=== PATIENT | male | born 1945 | race Caucasian/White ===

== ENCOUNTER 2024-11-06 15:11 | Inpatient (IN) ==
--- NOTE | 2024-11-06 16:10 | Emergency Department Note ---
Impression & Plan Recurrent falls, Generalized weakness, Elevated brain natriuretic peptide (BNP) level, Ambulatory dysfunction ED Provider Note HISTORY OF PRESENT ILLNESS: Patient is an 79-year-old male presenting with recurrent falls and generalized weakness. Patient has been having recurrent episodes of falling over the last 4 to 6 weeks. He reportedly was admitted to [facility] 2 weeks ago and states he was discharged home. He states that he has fallen multiple times since being home. He states that he feels very weak when he is up walking with his walker and the next minute he finds himself on the ground. He denies any chest pain or shortness of breath prior to passing out. He is not on any anticoagulation, but is on a baby aspirin daily. He denies any recent fevers. Denies any abdominal pain, nausea or vomiting. His most recent fall was yesterday. His called his primary care provider today and the staff at the office referred the patient to the emergency department for further evaluation and for "home oxygen and possibly a walker." Patient reports he feels generally weak and unsteady when he is up and walking around. He states that he feels short of breath with any sort of exertion over the last 6 weeks. Denies any DVT or PE history. Denies any recent sick contact exposures. Patient reports that during his admission to [facility], he got 2 units of blood. ROS: as above PHYSICAL EXAM: Constitutional: Patient appears in no acute distress. HENT: Head: Normocephalic and atraumatic. Eyes: EOMI, PERRL Mouth/Throat: Mucous membranes moist. Neck: Trachea midline. Neck supple. Cardiovascular: RRR, No murmurs, rubs or gallops. Intact distal pulses. Pulmonary/Chest: No respiratory distress. Breath sounds clear and equal bilaterally. No wheezes or rales. Abdominal: Abdomen soft, no tenderness, rebound or guarding. Musculoskeletal: No tenderness or deformity noted. +2 pitting edema of bilateral lower extremities Skin: Warm and dry. No rash, erythema, pallor or cyanosis Psychiatric: Appropriate mood and affect for situation. Neurological: Alert and keenly responsive. CN II-XII grossly intact, moving all extremities equally and fully. MDM: - Vitals signs showed hypertension - History obtained via patient. History as above. - Chronic conditions affecting care: HTN; HLD; CAD; DM-2 - Differential diagnoses include, but are not limited to: UTI; pneumonia; viral syndrome; electrolyte abnormality; CVA; intracranial hemorrhage; ACS - Order placed for continuous cardiac monitoring. At this time, monitor showed rate of 80 bpm with normal sinus rhythm, per my interpretation. - External medical records reviewed. Diabetes visit dated 04/01/2024 was reviewed. Patient is on Ozempic and Tresiba. - EKG interpreted by myself showed normal sinus rhythm. Rate 78 bpm. QT 388. No acute ischemic changes - Laboratory workup interpreted by myself showed normal WBC; anemia (Hgb 7.3); elevated INR (1.2); hyponatremia (Na 134); normal lactate; elevated creatinine (Cr 2.38); normal troponin; elevated BNP (1150); normal TSH - CT head wo contrast negative for acute intracranial pathology - UA negative for infection - Viral respiratory panel negative. - CXR showed some haziness to the lung bases, per my interpretation. Radiology notes this could be technique versus pneumonia. - Patient given 40 mg IV lasix in ER. - Discussion was had with disease case manager about patient's case and need for admission - Hospitalist consulted for admission - [facility] for further evaluation and management. ASSESSMENT AND PLAN: Diagnosis: recurrent falls; generalized weakness; ambulatory dysfunction; elevated BNP Plan: admit Past Med/Surg History Problem List (Updated 11/06/24 @ 18:50 by Missy Blanco MD) Ambulatory dysfunction (Acute) Elevated brain natriuretic peptide (BNP) level (Acute) Generalized weakness (Acute) Recurrent falls (Acute) Stented coronary artery Mitral regurgitation CAD (coronary artery disease) Diabetic nephropathy Type 2 diabetes mellitus Urinary symptom or sign Hypercholesterolemia Hypertension Diabetes Arthritis BPH (benign prostatic hyperplasia) Dysuria Medical History (Updated 11/06/24 @ 18:50 by Missy Blanco MD) Urinary symptom or sign Heart trouble Surgical History (Updated 09/20/24 @ 15:06 by Ananda Gamez MD) History of prostate surgery H/O discectomy History of mastectomy Family History Mother Diabetes Heart disease Hypertension Father Heart disease Hypertension Social History Smoking Status: Former smoker Tobacco Type: Cigarettes marital status: current occupational status: retired Feels Safe at Home: Yes Allergies Allergies Allergy/AdvReac Type Severity Reaction Status Date / Time Penicillins Allergy Verified 09/20/24 14:28 [email or web address] Allergy Unknown Uncoded 09/20/24 14:28 Home Meds Home Medications Medication Instructions Recorded Confirmed amitriptyline 100 mg tablet 100 mg PO DAILY 01/18/24 09/20/24 aspirin 81 mg tablet,delayed 81 mg PO DAILY 01/18/24 09/20/24 release blood-glucose meter (OneTouch 01/18/24 03/27/24 Verio Flex Meter) carvedilol 25 mg tablet 25 mg PO BID 01/18/24 09/20/24 cholecalciferol (vitamin D3) 25 25 mcg PO DAILY 01/18/24 09/20/24 mcg (1,000 unit) capsule coenzyme Q10 200 mg capsule 200 mg PO DAILY 01/18/24 09/20/24 (Q-Sorb Co Q-10) donepezil 5 mg tablet (Aricept) 5 mg PO DAILY 01/18/24 09/20/24 fenofibrate 160 mg tablet 160 mg PO DAILY 01/18/24 09/20/24 finasteride 5 mg tablet 5 mg PO DAILY 01/18/24 09/20/24 krill 350 mg-omega-3 90 mg-dha 24 cap PO 01/18/24 09/20/24 mg-epa 50 gc-yaxvaxw-qgjqr capsule (MegaRed [place]-3 Krill Oil) leflunomide 20 mg tablet 20 mg PO DAILY 01/18/24 09/20/24 gebujivt-bnzezfsm-agrwt acid 400 tab PO 01/18/24 09/20/24 mcg-vit K 20 mcg-lycop 300 mcg tablet nitroglycerin 0.4 mg sublingual 0.4 mg sublingual Q5M PRN 01/18/24 09/20/24 tablet tamsulosin 0.4 mg capsule 0.4 mg PO DAILY 01/18/24 09/20/24 terazosin 10 mg capsule 10 mg PO DAILY 01/18/24 09/20/24 trazodone 100 mg tablet 100 mg PO DAILY 01/18/24 09/20/24 valsartan 320 mg tablet 320 mg PO DAILY 01/18/24 09/20/24 vitamin B comp and C no.3 15 mg-10 1 cap PO DAILY 01/18/24 09/20/24 mg-50 mg-5 mg-300 mg capsule (B Complex Plus Vitamin C) amlodipine 10 mg tablet 10 mg PO BID 09/20/24 09/20/24 ascorbic acid (vitamin C) 500 mg 500 mg PO DAILY 09/20/24 09/20/24 capsule atorvastatin 40 mg tablet 20 mg PO DAILY 09/20/24 09/20/24 gabapentin 400 mg capsule 400 mg PO DAILY 09/20/24 09/20/24 isosorbide mononitrate 60 mg 30 mg PO DAILY 09/20/24 09/20/24 tablet,extended release 24 hr magnesium 200 mg tablet 400 mg PO DAILY 09/20/24 09/20/24 methenamine hippurate 1 gram tablet 1 g PO BID 09/20/24 09/20/24 omeprazole 20 mg capsule,delayed 60 mg PO DAILY 09/20/24 09/20/24 release pramipexole 0.125 mg tablet 0.125 mg PO DAILY 09/20/24 09/20/24 primidone 50 mg tablet 150 mg PO DAILY 09/20/24 09/20/24 semaglutide 2 mg/dose (8 mg/3 mL) 0.25 mg subcut .weekly 09/20/24 subcutaneous pen injector Previous Rx's Medication Instructions Recorded pen needle, diabetic 33 gauge x #100 ea 01/18/2410/28" blood sugar diagnostic (OneTouch #400 ea 01/27/24 Verio test strips) FreeStyle [place] 3 Sensor #6 ea 04/10/24 (blood-glucose sensor) hydralazine 10 mg tablet 10 mg PO TID #90 tabs 09/20/24 Results & Data (ED) Vital Signs Vital Signs - 24 hr 11/06/24 15:22 11/06/24 15:27 11/06/24 15:40 Temperature Temperature Source Pulse Rate 79 Pulse Rate [Right Finger] 77 Pulse Rhythm [Right Finger] Regular Pulse Strength [Right Finger] Respiratory Rate 20 Respiratory Effort / Characteristics Non-Labored Respiratory Depth Normal Respiratory Pattern Blood Pressure [Right Arm] 155/69 H Blood Pressure Mean [Right Arm] 97 Blood Pressure Position [Right Arm] Lying Pulse Oximetry 93 Oxygen Delivery Method Room Air Sepsis New/Unexplained Change in Mental Status N/A Sepsis Action Taken by Nursing No Action Required 11/06/24 15:40 11/06/24 16:09 11/06/24 16:19 Temperature 37.2 C Temperature Source Oral Pulse Rate Pulse Rate [Right Finger] Pulse Rhythm [Right Finger] Pulse Strength [Right Finger] Respiratory Rate Respiratory Effort / Characteristics Respiratory Depth Respiratory Pattern Blood Pressure [Right Arm] Blood Pressure Mean [Right Arm] Blood Pressure Position [Right Arm] Pulse Oximetry 90 Oxygen Delivery Method Room Air Room Air Sepsis New/Unexplained Change in Mental Status Sepsis Action Taken by Nursing 11/06/24 18:00 Temperature Temperature Source Pulse Rate Pulse Rate [Right Finger] 67 Pulse Rhythm [Right Finger] Regular Pulse Strength [Right Finger] Normal Respiratory Rate 18 Respiratory Effort / Characteristics Non-Labored Respiratory Depth Normal Respiratory Pattern Regular Blood Pressure [Right Arm] 155/69 H Blood Pressure Mean [Right Arm] 97 Blood Pressure Position [Right Arm] Lying Pulse Oximetry 93 Oxygen Delivery Method Room Air Sepsis New/Unexplained Change in Mental Status Sepsis Action Taken by Nursing Laboratory Data 11/06/24 15:25 11/06/24 15:25 Lab Results 11/06/24 11/06/24 11/06/24 Range/Units 15:25 17:20 17:46 WBC 9.46 (4.8-10.8) K/ul RBC 2.56 L (4.70-6.10) M/uL Hgb 7.3 L (14.0-18.0) g/dl Hct 22.7 L (42.0-52.0) % MCV 88.7 (80.0-100.0) fL MCH 28.5 (25.0-34.0) pg MCHC 32.2 (32.0-36.0) g/dL RDW Std Deviation 45.9 (36.4-46.3) fL RDW Coeff of Jaziel 14.2 (11.5-14.5) % Plt Count 273 (130-400) K/uL MPV 9.1 L (9.4-12.4) fL Immature Gran % (Auto) 0.5 % Neut % (Auto) 79.8 % Lymph % (Auto) 9.3 % [place] % (Auto) 7.9 % Eos % (Auto) 2.1 % Baso % (Auto) 0.4 % Neut # (Auto) 7.54 H (1.40-6.50) K/uL Lymph # (Auto) 0.88 L (1.20-3.40) K/uL [place] # (Auto) 0.75 H (0.11-0.59) K/uL Eos # (Auto) 0.20 (0.00-0.50) K/uL Baso # (Auto) 0.04 (0.00-0.20) K/uL Immature Gran # (Auto) 0.05 (0.01-0.20) K/uL Hypochromasia Present Microcytosis Present PT 13.0 H (9.0-12.0) Seconds INR 1.2 H (0.9-1.1) Sodium 134 L (136-145) mmol/L Potassium 4.4 (3.5-5.1) mmol/L Chloride 103 (98-107) mmol/L Carbon Dioxide 23 (21-32) mmol/L Anion Gap 8 (3-11) BUN 34 H (6-23) mg/dl Creatinine 2.38 H (0.6-1.4) mg/dl Est Cr Clr Drug Dosing 29.2 ml/min eGFR 26.88 BUN/Creatinine Ratio 14.3 (10-20) Glucose 220 H (70-99(Fasting)) mg/dl Lactate 0.7 (0.4-2.0) mmol/L Calcium 8.7 (8.6-10.3) mg/dl Magnesium 2.0 (1.7-2.4) mg/dl Iron 14 L (35-175) mcg/dl TIBC 318 (250-450) mcg/dl Transferrin 227 (200-360) mg/dl Transferrin % Sat 4 L (20-50) % Total Bilirubin 0.5 (0.2-1.0) mg/dl AST 33 (13-39) U/L ALT 23 (7-52) U/L Alkaline Phosphatase 28 L (34-104) U/L Lactate Dehydrogenase 225 (86-244) U/L Troponin I High Sens 18.9 (0-20) pg/ml B-Natriuretic Peptide 1150 H (0-100) pg/ml Total Protein 6.8 (6.0-8.3) gm/dl Albumin 3.4 (3.4-5.0) gm/dl Globulin 3.4 (2.5-4.0) gm/dl Albumin/Globulin Ratio 1.0 (0.9-2) TSH 2.129 (0.300-4.500) uIu/ml Urine Color Yellow Urine Appearance Clear (Clear) Urine pH 6.0 (4.5-7.5) Ur Specific [place]ix[place] 1.015 (1.000-1.030) Urine Protein 3+ H (Negative) Urine Glucose (UA) Negative (Negative) Urine Ketones Trace H (Negative) Urine Blood Trace H (Negative) Urine Nitrite Negative (Negative) Urine Bilirubin Negative (Negative) Urine Urobilinogen Negative (Negative) Ur Leukocyte Esterase Negative (Negative) Urine WBC (Auto) 0-5 (0-5) /hpf Urine RBC (Auto) 11-20 H (0-2) /hpf U Hyaline Cast (Auto) 3-5 H (0-2) /lpf U Epithel Cells (Auto) 0-2 (0-2) /hpf Urine Bacteria (Auto) None Seen (None Seen) Adenovirus (PCR) (NotDetected) B. pertussis DNA (PCR) (NotDetected) B.parapertussis DNA PCR (NotDetected) C. pneumoniae DNA (PCR) (NotDetected) Coronavirus OC43 (PCR) (NotDetected) Coronavirus HKU1 (PCR) (NotDetected) Coronavirus 229E (PCR) (NotDetected) SARS-CoV-2 (PCR) (NotDetected) Coronavirus NL63 (PCR) (NotDetected) Human Metapneumovir PCR (NotDetected) Influenza Type A (PCR) (NotDetected) Influenza Type B (PCR) (NotDetected) M. pneumoniae (PCR) (NotDetected) Parainfluenza 1 (PCR) (NotDetected) Parainfluenza 2 (PCR) (NotDetected) Parainfluenza 3 (PCR) (NotDetected) Parainfluenza 4 (PCR) (NotDetected) RSV (PCR) (NotDetected) Entero/Rhino (PCR) (NotDetected) 11/06/24 Range/Units Unknown WBC (4.8-10.8) K/ul RBC (4.70-6.10) M/uL Hgb (14.0-18.0) g/dl Hct (42.0-52.0) % MCV (80.0-100.0) fL MCH (25.0-34.0) pg MCHC (32.0-36.0) g/dL RDW Std Deviation (36.4-46.3) fL RDW Coeff of Jaziel (11.5-14.5) % Plt Count (130-400) K/uL MPV (9.4-12.4) fL Immature Gran % (Auto) % Neut % (Auto) % Lymph % (Auto) % [place] % (Auto) % Eos % (Auto) % Baso % (Auto) % Neut # (Auto) (1.40-6.50) K/uL Lymph # (Auto) (1.20-3.40) K/uL [place] # (Auto) (0.11-0.59) K/uL Eos # (Auto) (0.00-0.50) K/uL Baso # (Auto) (0.00-0.20) K/uL Immature Gran # (Auto) (0.01-0.20) K/uL Hypochromasia Microcytosis PT (9.0-12.0) Seconds INR (0.9-1.1) Sodium (136-145) mmol/L Potassium (3.5-5.1) mmol/L Chloride (98-107) mmol/L Carbon Dioxide (21-32) mmol/L Anion Gap (3-11) BUN (6-23) mg/dl Creatinine (0.6-1.4) mg/dl Est Cr Clr Drug Dosing ml/min eGFR BUN/Creatinine Ratio (10-20) Glucose (70-99(Fasting)) mg/dl Lactate (0.4-2.0) mmol/L Calcium (8.6-10.3) mg/dl Magnesium (1.7-2.4) mg/dl Iron (35-175) mcg/dl TIBC (250-450) mcg/dl Transferrin (200-360) mg/dl Transferrin % Sat (20-50) % Total Bilirubin (0.2-1.0) mg/dl AST (13-39) U/L ALT (7-52) U/L Alkaline Phosphatase (34-104) U/L Lactate Dehydrogenase (86-244) U/L Troponin I High Sens (0-20) pg/ml B-Natriuretic Peptide (0-100) pg/ml Total Protein (6.0-8.3) gm/dl Albumin (3.4-5.0) gm/dl Globulin (2.5-4.0) gm/dl Albumin/Globulin Ratio (0.9-2) TSH (0.300-4.500) uIu/ml Urine Color Urine Appearance (Clear) Urine pH (4.5-7.5) Ur Specific [place]ix[place] (1.000-1.030) Urine Protein (Negative) Urine Glucose (UA) (Negative) Urine Ketones (Negative) Urine Blood (Negative) Urine Nitrite (Negative) Urine Bilirubin (Negative) Urine Urobilinogen (Negative) Ur Leukocyte Esterase (Negative) Urine WBC (Auto) (0-5) /hpf Urine RBC (Auto) (0-2) /hpf U Hyaline Cast (Auto) (0-2) /lpf U Epithel Cells (Auto) (0-2) /hpf Urine Bacteria (Auto) (None Seen) Adenovirus (PCR) Not Detected (NotDetected) B. pertussis DNA (PCR) Not Detected (NotDetected) B.parapertussis DNA PCR Not Detected (NotDetected) C. pneumoniae DNA (PCR) Not Detected (NotDetected) Coronavirus OC43 (PCR) Not Detected (NotDetected) Coronavirus HKU1 (PCR) Not Detected (NotDetected) Coronavirus 229E (PCR) Not Detected (NotDetected) SARS-CoV-2 (PCR) Not Detected (NotDetected) Coronavirus NL63 (PCR) Not Detected (NotDetected) Human Metapneumovir PCR Not Detected (NotDetected) Influenza Type A (PCR) Not Detected (NotDetected) Influenza Type B (PCR) Not Detected (NotDetected) M. pneumoniae (PCR) Not Detected (NotDetected) Parainfluenza 1 (PCR) Not Detected (NotDetected) Parainfluenza 2 (PCR) Not Detected (NotDetected) Parainfluenza 3 (PCR) Not Detected (NotDetected) Parainfluenza 4 (PCR) Not Detected (NotDetected) RSV (PCR) Not Detected (NotDetected) Entero/Rhino (PCR) Not Detected (NotDetected) Administered Medications Discontinued Medications Furosemide (Furosemide 40 Mg/4 Ml Vial) 40 mg IV ONE ONE Stop: 11/06/24 17:15 Last Admin: 11/06/24 17:21 Dose: 40 mg Documented By: ERMA Imaging Data Radiologist's Impression: Chest X-Ray 11/06/24 16:07 EXAM: X-ray chest one-view portable CLINICAL HISTORY: Weakness PRIORS: None TECHNIQUE: AP portable upright FINDINGS: The chest is well-expanded. Cardiac silhouette is moderately enlarged. Hazy opacification present at the lung bases. Right costophrenic angle is omitted. Moderate atherosclerotic disease of the aortic knob is noted. No pneumothorax. Trachea is patent. Osseous structures demonstrate no acute abnormality. No radiopaque foreign body. IMPRESSION: 1. Hazy opacification at the lung bases which may suggest pneumonia versus technique. 2. Moderate enlargement of the cardiac silhouette. Electronically signed by Ada Garcia 11-06-2024 5:[address] 11/06/24 16:08 EXAMINATION: Head CT without CLINICAL HISTORY: Fall PRIORS: None TECHNIQUE: Contiguous axial images were obtained through the head without the use of intravenous contrast. Sagittal and coronal reformations are supplied. FINDINGS: Moderate parenchymal volume loss is noted. Humphreys-white differentiation is preserved. No edema or midline shift. A mild scalp/soft tissue hematoma and swelling noted involving the right high parietal/occipital region. No intra-axial or extra-axial hemorrhage. Ventricles are normal in size and configuration. Brainstem and cerebellum have a normal appearance. Calvarium unremarkable. Paranasal sinuses and mastoid air cells are well-pneumatized. Globes are intact. No retrobulbar abnormality. IMPRESSION: No CT evidence of an acute intracranial abnormality. Electronically signed by Ada Garcia 11-06-2024 5:33 PM Discharge Plan Visit Data Chief Complaint: Weakness Stated Complaint: WEAKNESS, FALLS ED Provider: Missy Blanco Discharge Problem: Recurrent falls, Generalized weakness, Elevated brain natriuretic peptide (BNP) level, Ambulatory dysfunction Forms Stand Alone Forms: WriteReader ApS Prescriptions Prescriptions: No Action (DME) OneTouch Verio test strips Strip See Rx Instructions .Route Qty: 400 3RF Rx Instructions: Test 4 times a day (DME) Faves [place] 3 Sensor Device See Rx Instructions .Route Qty: 6 3RF Rx Instructions: Change sensor every 14 days trazodone 100 mg tablet 100 mg PO DAILY (DME) blood-glucose meter [[employer] Verio Flex meter] [facility] [place] See Rx Instructions .Route Rx Instructions: As directed nitroglycerin 0.4 mg tablet, sublingual 0.4 mg sublingual Q5M PRN Rx Instructions: do not exceed 3 doses per episode tamsulosin 0.4 mg capsule 0.4 mg PO DAILY carvedilol 25 mg tablet 25 mg PO BID Rx Instructions: must administer with a meal/food fenofibrate 160 mg tablet 160 mg PO DAILY terazosin 10 mg capsule 10 mg PO DAILY cholecalciferol (vitamin D3) 25 mcg (1,000 unit) capsule 25 mcg PO DAILY MegaRed [place]-3 Krill Oil 651-38-31-50 mg capsule PO coenzyme Q10 [Q-Sorb Co Q-10] 200 mg capsule 200 mg PO DAILY B Complex Plus Vitamin C 41-45-73-5-300 mg capsule 1 cap PO DAILY Rx Instructions: give with food (meal/snack) hrsaxvpo-cjl-yjrdg-vit K-lycop 400-20-300 mcg tablet PO aspirin 81 mg tablet,delayed release (DR/EC) 81 mg PO DAILY leflunomide 20 mg tablet 20 mg PO DAILY amitriptyline 100 mg tablet 100 mg PO DAILY finasteride 5 mg tablet 5 mg PO DAILY valsartan 320 mg tablet 320 mg PO DAILY donepezil [Aricept] 5 mg tablet 5 mg PO DAILY (DME) pen needle, diabetic 33 gauge x 1/4" needle See Rx Instructions .Route Qty: 100 5RF Rx Instructions: To be used with insulin pen. magnesium 200 mg tablet 400 mg PO DAILY atorvastatin 40 mg tablet 20 mg PO DAILY isosorbide mononitrate 60 mg tablet extended release 24 hr 30 mg PO DAILY omeprazole 20 mg capsule,delayed release(DR/EC) 60 mg PO DAILY primidone 50 mg tablet 150 mg PO DAILY ascorbic acid (vitamin C) 500 mg capsule 500 mg PO DAILY methenamine hippurate 1 gram tablet 1 g PO BID amlodipine 10 mg tablet 10 mg PO BID pramipexole 0.125 mg tablet 0.125 mg PO DAILY semaglutide 2 mg/dose (8 mg/3 mL) pen injector 0.25 mg subcut .weekly gabapentin 400 mg capsule 400 mg PO DAILY hydralazine 10 mg tablet 10 mg PO TID Qty: 90 5RF Referrals Referrals: Jhonatan Castillo, MAKAYLAC [Primary Care Provider] -
[2024-11-06 16:44] LABS: Basophils # (auto) 0.04 K/uL (0.00-0.20); Basophils % (auto) 0.4 %; Eosinophils % (auto) 2.1 %; Hematocrit (blood only) 22.7 % (42.0-52.0); Hemoglobin 7.3 g/dl (14.0-18.0); Immature Granulocytes # (auto) 0.05 K/uL (0.01-0.20); Immature Granulocytes % (auto) 0.5 %; Lymphocytes # (auto) 0.88 K/uL (1.20-3.40); Lymphocytes % (auto) 9.3 %; Mean Corpuscular Hemoglobin 28.5 pg (25.0-34.0); Mean Corpuscular Hgb Conc 32.2 g/dL (32.0-36.0); Mean Corpuscular Volume 88.7 fL (80.0-100.0); Mean Platelet Volume 9.1 fL (9.4-12.4); Monocytes # (auto) 0.75 K/uL (0.11-0.59); Monocytes % (auto) 7.9 %; Neutrophils # (auto) 7.54 K/uL (1.40-6.50); Neutrophils % (auto) 79.8 %; Platelet Count 273 K/uL (130-400); RDW Coefficient of Variation 14.2 % (11.5-14.5); RDW Standard Deviation 45.9 fL (36.4-46.3); Red Blood Count 2.56 M/uL (4.70-6.10); White Blood Count 9.46 K/ul (4.8-10.8)
[2024-11-06 16:47] LABS: Albumin Level 3.4 gm/dl (3.4-5.0); BUN Creatinine Ratio 14.3 (10-20); Bilirubin,Total 0.5 mg/dl (0.2-1.0); Calcium 8.7 mg/dl (8.6-10.3); Creatinine Clr Calc Pharmacy 29.2 ml/min; Globulin 3.4 gm/dl (2.5-4.0); Potassium 4.4 mmol/L (3.5-5.1); Total Protein 6.8 gm/dl (6.0-8.3)
[2024-11-06 16:49] LABS: INR 1.2 (0.9-1.1)
[2024-11-06 16:51] LABS: Troponin I High Sensitivity 18.9 pg/ml (0-20)
[2024-11-06 17:00] LABS: Thyroid Stimulating Hormone 2.129 uIu/ml (0.300-4.500)
[2024-11-06 17:13] LABS: Hypochromasia Present; Microcytosis Present
--- NOTE | 2024-11-06 17:17 | XRay Report ---
EXAM: X-ray chest one-view portable CLINICAL HISTORY: Weakness PRIORS: None TECHNIQUE: AP portable upright FINDINGS: The chest is well-expanded. Cardiac silhouette is moderately enlarged. Hazy opacification present at the lung bases. Right costophrenic angle is omitted. Moderate atherosclerotic disease of the aortic knob is noted. No pneumothorax. Trachea is patent. Osseous structures demonstrate no acute abnormality. No radiopaque foreign body. IMPRESSION: 1. Hazy opacification at the lung bases which may suggest pneumonia versus technique. 2. Moderate enlargement of the cardiac silhouette. Electronically signed by Ada Garcia 11-06-2024 5:17 PM
[2024-11-06] MEDS: FUROSEMIDE 40 MG/4 ML VIAL IV ONE (17:21)
[2024-11-06 17:30] LABS: Adenovirus PCR Not Detected (NotDetected); Bordetella parapertussis PCR Not Detected (NotDetected); Bordetella pertussis PCR Not Detected (NotDetected); Chlamydia pneumoniae PCR Not Detected (NotDetected); Coronavirus 229E PCR Not Detected (NotDetected); Coronavirus CoV-2 (COVID19)PCR Not Detected (NotDetected); Coronavirus HKU1 PCR Not Detected (NotDetected); Coronavirus NL63 PCR Not Detected (NotDetected); Coronavirus OC43PCR Not Detected (NotDetected); Human Metapneumovirus PCR Not Detected (NotDetected); Influenza A PCR Not Detected (NotDetected); Influenza B PCR Not Detected (NotDetected); Mycoplasma pneumoniae PCR Not Detected (NotDetected); Parainfluenza Virus 1 PCR Not Detected (NotDetected); Parainfluenza Virus 2 PCR Not Detected (NotDetected); Parainfluenza Virus 3 PCR Not Detected (NotDetected); Parainfluenza Virus 4 PCR Not Detected (NotDetected); Respiratory Syncytial VirusPCR Not Detected (NotDetected); Rhinovirus/Enterovirus PCR Not Detected (NotDetected)
--- NOTE | 2024-11-06 17:33 | CT Scan Report ---
EXAMINATION: Head CT without CLINICAL HISTORY: Fall PRIORS: None TECHNIQUE: Contiguous axial images were obtained through the head without the use of intravenous contrast. Sagittal and coronal reformations are supplied. FINDINGS: Moderate parenchymal volume loss is noted. Humphreys-white differentiation is preserved. No edema or midline shift. A mild scalp/soft tissue hematoma and swelling noted involving the right high parietal/occipital region. No intra-axial or extra-axial hemorrhage. Ventricles are normal in size and configuration. Brainstem and cerebellum have a normal appearance. Calvarium unremarkable. Paranasal sinuses and mastoid air cells are well-pneumatized. Globes are intact. No retrobulbar abnormality. IMPRESSION: No CT evidence of an acute intracranial abnormality. Electronically signed by Ada Garcia 11-06-2024 5:33 PM
--- NOTE | 2024-11-06 18:19 | History & Physical Report ---
Date of Service November 06, 2024 Assessment & Plan (1) Recurrent falls: Plan: Balance vs. weakness issue. He has had extensive workup outside of our hospital system including EMG testing Clearly polypharmacy may be playing a role but without specialist notes I am reluctant to start discontinuing medications without notes from his specialists PT/OT - likely need for placement (2) Shortness of breath: Plan: ?secondary to anemia ?hypervolemic Monitor response to Lasix CT for PE pending (d dimer elevated) (3) Right buttock pain: Plan: Secondary to fall from yesterday CT Pelvis w/o IV contrast taken but not yet reported to assess for pelvis fracture, no groin pain to suggest hip fracture (4) Elevated serum creatinine: Plan: Unknown baseline but suspect this is chronic as the diagnosis of CKD has been mentioned to him in the past, request outside notes UA pending (5) Normocytic anemia: Plan: Unknown baseline but recently needing blood tranfusions, patient unaware of why he is anemic Iron studies, B12, folate, LDH, retic count No melena (6) Hypertension: Plan: Continue his usual regimen with carvedilol, amlodipine, ISMN (7) Claudication: Plan: Noted claudication in calves without relief from recent peripheral artery procedure, suspect neurogenic although he reports normal recent NCS/EMG testing in the last 6 months Request outside records (8) Peripheral artery disease: Plan: Continue aspirin, atorvastatin (9) BPH (benign prostatic hyperplasia): Plan: Straight cath TID Unclear why he takes both tamlsulosin and terazosin, will continue terazosin alone Continue finasteride (10) Diabetes: Plan: HbA1C in AM On Ozempic outpatient NovoLog for correction factor only, will add basal coverage if needing this frequently (11) Generalized weakness: Plan VTE Prophylaxis - deferred pending stability in Hgb Diet - Low Na Disposition - admit to med/surg Admission and Anticipated Discharge Date Admission Date: November 06, 2024 History of Present Illness Chief Complaint: Recurrent falls Primary Care Provider: Jhonatan Castillo Natalio Yepez is an 79 year old male presents to the ER with shortness of breath on exertion, increasing weakness and recurrent falls. History is very limited as most of his care takes place outside of [facility] in both [facility] and [facility] systems. He reports multiple falls in the last 2 months, he did not have a significant issue with falls before then. He was recently in [facility] discharged 6 days ago. He was intially admitted but only managed to get out to his car on discharge and fell over backwards trying to get into the car therefore was re-admitted. He reports being anemic and receiving 2 units of blood but is unsure why he is anemic. No EGD or colonoscopy was performed - he notes his last EGD/colonoscopy was 4 years ago. He is unsure what his hemoglobin usually runs around but has been anemic for as long as he can remember. He feels the reason for his recurrent falls is bilateral leg weakness. He notes his weakness is much worse since his last hospitalization as he was lying around in bed for several days. His last fall was yesterday and is having right gluteal pain since the fall. No radiation down his leg. He feels both legs are weak but perhaps the right worse than left. He notes a history of claudication for the last 2 years which was investigated with EMG/NCS (unknown results) from his neurology Dr Alicea. He underwent peripheral artery angiogram and what he describes as baloon angioplasty on his right leg without change in his symptoms by Dr Kwon within the last 6 months. He also notes 2 days of shortness of breath. No chest pain, palpitations, worsening leg swelling or weight gain. His Cr was also noted to be elevated. Unknown baseline. He reports being under n ephrology (Dr Patel in [place]). Unknown diagnosis requiring leflunamide however he reports this helped with his joint pain and prescribed by rheumatology (Dr Carrasquillo) His PCP is Paulette MONGE of [facility]. Biggest change since his discharge from [place] 6 days ago is his shortness of breath rather than the weakness. Allergies Allergy/AdvReac Type Severity Reaction Status Date / Time cashew nut Allergy Unknown Unknown Verified 11/06/24 23:11 Penicillins Allergy Unknown Unknown Verified 11/06/24 23:11 Home Medications Medication Instructions Recorded Confirmed Type amitriptyline 100 mg tablet 100 mg PO HS 01/18/24 11/06/24 History aspirin 81 mg tablet,delayed 81 mg PO DAILY 01/18/24 11/06/24 History release blood-glucose meter (OneTouch 01/18/24 03/27/24 History Verio Flex Meter) carvedilol 25 mg tablet 25 mg PO BID 01/18/24 11/06/24 History cholecalciferol (vitamin D3) 25 25 mcg PO DAILY 01/18/24 11/06/24 History mcg (1,000 unit) capsule coenzyme Q10 200 mg capsule 200 mg PO DAILY 01/18/24 11/06/24 History (Q-Sorb Co Q-10) donepezil 5 mg tablet (Aricept) 5 mg PO HS 01/18/24 11/06/24 History fenofibrate 160 mg tablet 160 mg PO DAILY 01/18/24 11/06/24 History finasteride 5 mg tablet 5 mg PO DAILY 01/18/24 11/06/24 History krill 350 mg-omega-3 90 mg-dha 24 1 cap PO BID 01/18/24 11/06/24 History mg-epa 50 bk-tvvabmy-iwfks capsule (MegaRed Aldrich-3 Krill Oil) leflunomide 20 mg tablet 20 mg PO HS 01/18/24 11/06/24 History uugigkji-fwecelkt-loovj acid 400 1 tab PO DAILY 01/18/24 11/06/24 History mcg-vit K 20 mcg-lycop 300 mcg tablet nitroglycerin 0.4 mg sublingual 0.4 mg sublingual Q5M PRN Chest 01/18/24 11/06/24 History tablet Pain pen needle, diabetic 33 gauge x #100 ea 01/18/24 03/27/24 Rx 1/" tamsulosin 0.4 mg capsule 0.4 mg PO HS 01/18/24 11/06/24 History terazosin 10 mg capsule 10 mg PO HS 01/18/24 11/06/24 History trazodone 100 mg tablet 100 mg PO HS 01/18/24 11/06/24 History valsartan 320 mg tablet 320 mg PO DAILY 01/18/24 11/06/24 History vitamin B comp and C no.3 15 mg-10 1 cap PO DAILY 01/18/24 11/06/24 History mg-50 mg-5 mg-300 mg capsule (B Complex Plus Vitamin C) blood sugar diagnostic (OneTouch #400 ea 01/27/24 03/27/24 Rx Verio test strips) FreeStyle [place] 3 Sensor #6 ea 04/10/24 Rx (blood-glucose sensor) amlodipine 10 mg tablet 10 mg PO BID 09/20/24 11/06/24 History ascorbic acid (vitamin C) 500 mg 500 mg PO DAILY 09/20/24 11/06/24 History capsule atorvastatin 40 mg tablet 20 mg PO DAILY 09/20/24 11/06/24 History gabapentin 400 mg capsule 400 mg PO BID 09/20/24 11/06/24 History hydralazine 10 mg tablet 10 mg PO TID #90 tabs 09/20/24 11/06/24 Rx isosorbide mononitrate 60 mg 30 mg PO HS 09/20/24 11/06/24 History tablet,extended release 24 hr magnesium 200 mg tablet 400 mg PO DAILY 09/20/24 11/06/24 History methenamine hippurate 1 gram tablet 1 g PO BID 09/20/24 11/06/24 History omeprazole 20 mg capsule,delayed 60 mg PO HS 09/20/24 11/06/24 History release pramipexole 0.125 mg tablet 0.125 mg PO HS 09/20/24 11/06/24 History primidone 50 mg tablet 150 mg PO HS 09/20/24 11/06/24 History semaglutide 2 mg/dose (8 mg/3 mL) 0.25 mg subcut .weekly 09/20/24 11/06/24 History subcutaneous pen injector Past Med/Surg History Problem List (Updated 11/07/24 @ 06:30 by Aldair Chauhan MD) Right buttock pain Elevated serum creatinine Shortness of breath Normocytic anemia Claudication Ambulatory dysfunction (Acute) Elevated brain natriuretic peptide (BNP) level (Acute) Generalized weakness (Acute) Recurrent falls (Acute) Stented coronary artery Mitral regurgitation CAD (coronary artery disease) Diabetic nephropathy Type 2 diabetes mellitus Urinary symptom or sign Hypercholesterolemia Hypertension Diabetes Arthritis BPH (benign prostatic hyperplasia) Dysuria Medical History (Updated 11/07/24 @ 06:30 by Aldair Chauhan MD) Peripheral artery disease Urinary symptom or sign Heart trouble Surgical History (Updated 09/20/24 @ 15:06 by Ananda Gamez MD) History of prostate surgery H/O discectomy History of mastectomy Family History Mother Diabetes Heart disease Hypertension Father Heart disease Hypertension Social History Smoking Status: Former smoker Tobacco Type: Cigarettes Hx Alcohol Use: Yes Alcohol type: beer and wine Hx Substance Use: No Preferred Language: Swedish Communication Ability: Effective Director Required: No Beliefs That Will Affect Care: None marital status: Current Living Situation: Spouse current occupational status: retired Other Information That Helps Us Care for You: No Feels Safe at Home: Yes Safety Concerns: Feels Safe At This Time Assistive Devices: Hearing Aid - Bilateral and Walker Assistive Devices Comment: Hearing aids, walker Review of Systems Review of Systems: All systems reviewed & are unremarkable except as noted in HPI & below Physical Exam Constitutional: well developed; + not well nourished and no acute distress Eyes: PERRL, conjunctivae normal, anicteric sclerae ENMT: external ear and nose normal, oropharynx normal Respiratory: normal respiratory effort; no respiratory distress Auscultation: + crackles (bibasal); no wheezes Cardiovascular: Rate/Rhythm: regular rate and regular rhythm Heart Sounds: no murmur Extremities: normal capillary refill and + pedal edema (1+ equal bilaterally); no calf tenderness Gastrointestinal (Abdomen): normal bowel sounds, soft, nontender, no hepatosplenomegaly Musculoskeletal: no cyanosis or clubbing, extremities motor strength 5/5 Skin: no rashes, warm and dry Neurologic: moves all extremities and awake; no focal motor deficits and not confused Motor/Sensory: no tremor and no pronator drift Cranial Nerves: PERRL, EOM intact bilaterally, normal facial strength, tongue midline, able to rotate head bilaterally, able to elevate shoulders bilaterally, no nystagmus and symmetric palate elevation Psychiatric: A+Ox3, euthymic affect Genitourinary: no CVA tenderness Results & Data Results & Data Vital Signs (Past 12 Hours) Vital Signs Temp Pulse Pulse Resp BP Pulse Ox O2 Del Method 11/06/24 18:00 67 18 155/69 H 93 Room Air 11/06/24 16:19 37.2 C 11/06/24 16:09 90 Room Air 11/06/24 15:40 Room Air 11/06/24 15:27 79 11/06/24 15:22 77 20 155/69 H 93 Room Air Laboratory Results Abnormal lab results 11/06/24 Range/Units 15:25 RBC 2.56 L (4.70-6.10) M/uL Hgb 7.3 L (14.0-18.0) g/dl Hct 22.7 L (42.0-52.0) % MPV 9.1 L (9.4-12.4) fL Neut # (Auto) 7.54 H (1.40-6.50) K/uL Lymph # (Auto) 0.88 L (1.20-3.40) K/uL Cloud # (Auto) 0.75 H (0.11-0.59) K/uL PT 13.0 H (9.0-12.0) Seconds INR 1.2 H (0.9-1.1) Sodium 134 L (136-145) mmol/L BUN 34 H (6-23) mg/dl Creatinine 2.38 H (0.6-1.4) mg/dl Glucose 220 H (70-99(Fasting)) mg/dl Alkaline Phosphatase 28 L (34-104) U/L B-Natriuretic Peptide 1150 H (0-100) pg/ml Diagnostic Findings Head CT without CLINICAL HISTORY: Fall PRIORS: None TECHNIQUE: Contiguous axial images were obtained through the head without the use of intravenous contrast. Sagittal and coronal reformations are supplied. FINDINGS: Moderate parenchymal volume loss is noted. Humphreys-white differentiation is preserved. No edema or midline shift. A mild scalp/soft tissue hematoma and swelling noted involving the right high parietal/occipital region. No intra-axial or extra-axial hemorrhage. Ventricles are normal in size and configuration. Brainstem and cerebellum have a normal appearance. Calvarium unremarkable. Paranasal sinuses and mastoid air cells are well- pneumatized. Globes are intact. No retrobulbar abnormality. IMPRESSION: No CT evidence of an acute intracranial abnormality. X-ray chest one-view portable CLINICAL HISTORY: Weakness PRIORS: None TECHNIQUE: AP portable upright FINDINGS: The chest is well-expanded. Cardiac silhouette is moderately enlarged. Hazy opacification present at the lung bases. Right costophrenic angle is omitted. Moderate atherosclerotic disease of the aortic knob is noted. No pneumothorax. Trachea is patent. Osseous structures demonstrate no acute abnormality. No radiopaque foreign body. IMPRESSION: 1. Hazy opacification at the lung bases which may suggest pneumonia versus technique. 2. Moderate enlargement of the cardiac silhouette. Medications Administered ER medications given: Furosemide 40 mg IV ECG Rate (beats per minute): 78 Rhythm: normal sinus Findings: + LAFB Comparison ECG Date: from (September 20, 2024) Change: no significant change Code Status & VTE Plan Code Status Full VTE Prophylaxis Plan VTE Prophylaxis will be ordered: No PG Care Time/CCT Total # of Minutes Spent Total Time Spent with Patient: Total time spent is greater than 50% in coordination of care (as documented) at patient's floor/unit and/or counseling patient: Coding Level of Care Code 38989 INT INP/OBS CARE 3/75MIN Diagnoses Recurrent falls R29.6 Shortness of breath R06.02 Right buttock pain M79.18 Elevated serum creatinine R79.89 Normocytic anemia D64.9 Primary hypertension I10 Hypertension type: primary hypertension Claudication I73.9 Peripheral artery disease I73.9 BPH (benign prostatic hyperplasia) N40.0 Diabetes E11.9 Generalized weakness R53.1 (6) Hypertension Hypertension type: primary hypertension Qualified Code(s): I10 - Essential (primary) hypertension
[2024-11-06 18:23] LABS: Appearance Urine Clear (Clear); Bacteria Urine Automated None Seen (None Seen); Bilirubin Urine Negative (Negative); Blood Urine Trace (Negative); Color Urine Yellow; Epithelial Cell Urine Auto 0-2 /hpf (0-2); Glucose Urine UA Negative (Negative); Ketones Urine Trace (Negative); Leukocyte Esterase Urine Negative (Negative); Nitrite Urine Negative (Negative); Protein Urine 3+ (Negative); Specific Gravity Urine 1.015 (1.000-1.030); Urobilinogen Urine Negative (Negative); WBC Urine Automated 0-5 /hpf (0-5)
[2024-11-06 18:54] LABS: Reticulocyte % 1.14 % (0.50-2.00); Reticulocytes # 0.03 10^6/uL (0.020-0.100)
[2024-11-06 19:06] LABS: Folate (Folic Acid),Ser orPlas > 22.30 ng/ml (>5.38)
[2024-11-06 19:07] LABS: Vitamin B12 639 pg/ml (180-914)
[2024-11-06] MEDS ORDERED: ACETAMINOPHEN 325 MG TAB PO PRN (23:08)
[2024-11-06] MEDS: TERAZOSIN HCL 5 MG CAP PO SCH (23:56)
[2024-11-06] MEDS: hydrALAZINE 10 MG TAB PO SCH (23:56)
[2024-11-06] MEDS: PANTOprazole 40 MG TAB PO SCH (23:56)
[2024-11-06] MEDS: METHENAMINE HIPPURATE 1 GM TAB PO SCH (23:56)
[2024-11-06] MEDS: PRAMIPEXOLE DIHYDROCHLO 0.25 MG TAB PO SCH (23:56)
[2024-11-06] MEDS: AMITRIPTYLINE HCL 100 MG TAB PO SCH (23:56)
[2024-11-06] MEDS: GABAPENTIN 400 MG CAP PO SCH (23:56)
[2024-11-06] MEDS: ISOSORBIDE MONO EXTENDED REL 30 MG TABCR PO SCH (23:57)
[2024-11-06] MEDS: LEFLUNOMIDE 10 MG TAB PO SCH (23:57)
[2024-11-06] MEDS: PRIMIDONE 50 MG TAB PO SCH (23:57)
[2024-11-06] MEDS: traZODone HCL 100 MG TAB PO SCH (23:58)
[2024-11-06] MEDS: amLODIPine BESYLATE 5 MG TAB PO SCH (23:58)
[2024-11-06] MEDS: DONEPEZIL HCL 5 MG TAB PO SCH (23:58)
[2024-11-06] MEDS: carvediloL 25 MG TAB PO SCH (23:59)
[2024-11-07 00:16] LABS: D Dimer 10650 ug/L FEU (0-500)
[2024-11-07] MEDS: OPTIRAY 320 125ml IV ONE (00:43)
--- NOTE | 2024-11-07 02:07 | CT Scan Report ---
Exam(s): CT PELVIS Without Contrast EXAM: CT Pelvis Without Intravenous Contrast CLINICAL HISTORY: right lower back pain r/o pelvic fracture. TECHNIQUE: Axial computed tomography images of the pelvis without intravenous contrast. CTDI is 30.57 mGy and DLP is 883.39 mGy-cm. Automated exposure control was utilized for the study. A dose lowering technique was utilized adhering to the principles of ALARA. COMPARISON: No relevant prior studies available. FINDINGS: Bowel: Abundant stool throughout the visualized colon. No definite bowel obstruction or ileus. Appendix: No findings to suggest acute appendicitis. Intraperitoneal space: Unremarkable. No free air. No significant fluid collection. Bladder: Distended urinary bladder. No stones. Reproductive: Unremarkable as visualized. Bones/joints: No acute fracture. No dislocation. Degenerative changes lower lumbar spine. Soft tissues: Unremarkable. Vasculature: Atherosclerotic vascular calcifications. No lower abdominal aortic aneurysm. Lymph nodes: Unremarkable. No enlarged lymph nodes. IMPRESSION: No acute fracture or dislocation. Degenerative changes lumbar spine. Distended urinary bladder. Abundant stool throughout the colon. Electronically signed by: Carlton Lopez M.D. 11/07/24 02:06 AM
--- NOTE | 2024-11-07 02:27 | CT Scan Report ---
EXAM: CT angio chest PE protocol CLINICAL HISTORY: 118 ML OPTIRAY 320, EVAL FOR PE, NO CHEST PAIN OR SOB TECHNIQUE: Contiguous axial images were obtained from the neck base through the upper abdomen following intravenous administration of iodinated contrast material. Angiographic images were processed, 3D MIP images were acquired for interpretation. If IV contrast material had not been administered, the likelihood of detecting abnormalities relevant to the patient's condition would have been substantially decreased. Coronal and sagittal 3-D MIPs were likewise performed and indicated to increase the sensitivity of detecting diffuse clinically relevant pathology. CT scan was performed according to ALARA (as low as reasonably achievable). COMPARISON: None. FINDINGS: Mild to moderate bilateral pleural effusion is noted. Compression subsegmental atelectasis of underlying lung parenchyma is seen. Mild cardiomegaly is detected. Mild to moderate pericardial effusion is noted. Maximum thickness of the pericardial fluid rim measures approximately 1.4 cm along the richard basal aspect. Thickening of the bronchovascular bundle is noted involving bilateral lower lobes. Patchy areas of ground-glass densities with interstitial thickening are noted involving bilateral lung parenchyma. Few small solid nodules are noted in the right upper lobe. Near complete collapse of the lingula is seen. Ipsilateral mediastinal shift is noted. The central airways are patent. Atherosclerotic calcifications are noted involving aortic root, aorta and its branches, coronary arteries. No axillary or mediastinal adenopathy is identified. The thyroid is unremarkable. Imaged portions of the upper abdomen are unremarkable. No aggressive appearing osseous lesions are identified. IMPRESSION: 1. No evidence of pulmonary embolism. 2. Mild to moderate bilateral pleural effusion is noted. Compression subsegmental atelectasis of underlying lung parenchyma is seen. 3. Mild cardiomegaly is detected. 4. Mild to moderate pericardial effusion is noted. Maximum thickness of the pericardial fluid rim measures approximately 1.4 cm along the richard basal aspect. 5. Thickening of the bronchovascular bundle is noted involving bilateral lower lobes. 6. Patchy areas of ground-glass densities with interstitial thickening are noted involving bilateral lung parenchyma. Possibility of pulmonary edema needs consideration, likely cardiogenic. 7. Few small solid nodules are noted in the right upper lobe. 8. Atherosclerotic calcifications are noted involving aortic root, aorta and its branches, coronary arteries. Electronically signed by Memo Mir 11-07-2024 02:26 AM
[2024-11-07] MEDS: FUROSEMIDE INJ 20 MG/2 ML VIAL IV ONE (06:11)
[2024-11-07] MEDS ORDERED: GLUCOSE 10 TAB/TUBE PO PRN (06:25)
[2024-11-07] MEDS ORDERED: GLUCOSE 40% GEL 15 GM TUBE PO PRN (06:25)
[2024-11-07] MEDS ORDERED: GLUCAGON FOR INJ 1 MG VIAL SQ PRN (06:25)
[2024-11-07] MEDS ORDERED: DEXTROSE 50% 50 ML SYRINGE IV PRN (06:25)
[2024-11-07] MEDS ORDERED: CARBOHYDRATES FOR HYPOGLYCEMIA PO PRN (06:25)
[2024-11-07 06:53] LABS: Basophils # (auto) 0.04 K/uL (0.00-0.20); Basophils % (auto) 0.4 %; Eosinophils % (auto) 2.1 %; Hematocrit (blood only) 21.5 % (42.0-52.0); Hemoglobin 7.1 g/dl (14.0-18.0); Immature Granulocytes # (auto) 0.06 K/uL (0.01-0.20); Immature Granulocytes % (auto) 0.6 %; Lymphocytes # (auto) 1.14 K/uL (1.20-3.40); Lymphocytes % (auto) 12.2 %; Mean Corpuscular Hemoglobin 28.2 pg (25.0-34.0); Mean Corpuscular Volume 85.3 fL (80.0-100.0); Monocytes # (auto) 0.77 K/uL (0.11-0.59); Monocytes % (auto) 8.2 %; Neutrophils # (auto) 7.16 K/uL (1.40-6.50); Neutrophils % (auto) 76.5 %; Platelet Count 259 K/uL (130-400); RDW Standard Deviation 43.8 fL (36.4-46.3); Red Blood Count 2.52 M/uL (4.70-6.10); White Blood Count 9.37 K/ul (4.8-10.8)
[2024-11-07 07:09] LABS: Albumin Globulin Ratio 1.1 (0.9-2); Albumin Level 3.5 gm/dl (3.4-5.0); BUN Creatinine Ratio 14.5 (10-20); Bilirubin,Total 0.5 mg/dl (0.2-1.0); Calcium 8.8 mg/dl (8.6-10.3); Creatinine Clr Calc Pharmacy 26.6 ml/min; Globulin 3.2 gm/dl (2.5-4.0); Potassium 4.2 mmol/L (3.5-5.1); Total Protein 6.7 gm/dl (6.0-8.3)
[2024-11-07 07:19] LABS: INR 1.2 (0.9-1.1); Prothrombin Time 13.3 Seconds (9.0-12.0)
[2024-11-07 07:21] LABS: Hypochromasia Present
[2024-11-07] MEDS: ATORVASTATIN 20 MG TAB PO SCH (07:24)
[2024-11-07] MEDS: ASPIRIN 81 MG ECTAB PO SCH (07:24)
[2024-11-07] MEDS: VALSARTAN 80 MG TAB PO SCH (07:24)
[2024-11-07] MEDS: MAGNESIUM OXIDE 400 MG TAB PO SCH (07:25)
[2024-11-07] MEDS: CHOLECALCIFEROL 25 MCG (1000 UNITS) TAB PO SCH (07:25)
[2024-11-07] MEDS: FINASTERIDE 5 MG TAB PO SCH (07:26)
[2024-11-07] MEDS: FENOFIBRATE NANOCRYSTALLIZED 145 MG TABLET PO SCH (07:26)
[2024-11-07] MEDS: INSULIN ASPART PER UNIT CHARGE SC SCH (08:25)
--- NOTE | 2024-11-07 09:06 | Nephrology Consultation ---
Date of Consultation November 07, 2024 Assessment & Plan (1) Chronic kidney disease: CKD III A3. CKD attributed to DM and hypertension by history. Baseline creatinine ~2.0 mg/dL. ACR 2.4 g/g by history. SIEP + SFL with AM labs. Renal US reviewed. Urine studies demonstrating protein, RBC, and hyaline casts. No WBCs. Monitoring provided. Presentation atypical for GN. Rise in creatinine noted post CTA. Suspect contrast mediated. Furosemide 20 mg provided this AM. Document strict I/O's. Repeat metabolic profile tomorrow AM. Medications are currently appropriately dosed for kidney function. Hold valsartan. (2) Normocytic anemia: Chronic. Hematology consultation reviewed. No signs of active bleeding. PRBC transfusion support PRN for Hgb <7. Consider GI evaluation. (3) Hypertension: (4) Diabetic nephropathy: Hold valsartan due to TYESHA. Ozempic held while inpatient. (5) BPH (benign prostatic hyperplasia): Natalio has been performing regular CIC at home (~2-3x per day). No hydronephrosis on renal US. Continue CIC as Rx. He reports upcoming outpatient urology evaluation. Finasteride and tamsulosin per home Rx. (6) Polyarthritis: Consider that bone marrow suppression, weakness, and recent GI symptoms may be side effects of leflunomide? History of Present Illness Reason for Consultation: elevated cr Requesting Physician: Rashad Haque MD Attending Physician: Rashad Haque MD History of Present Illness Mr. Natalio Yepez is an 79 year old male with hypertension, coronary artery disease (ISABEL RCA 2009), obesity, TRISH, DMII, BPH with chronic urinary retention, polyarthritis, essential tremor, RLS, anemia, and chronic kidney disease. Natalio presented to the ER at [facility] yesterday with shortness of breath on exertion, increasing weakness, and recurrent falls. He was recently admitted to [facility] s/p fall. During his admission, he received 2 units of blood for anemia. No EGD or colonoscopy was performed. He recalls that his last EGD/colonoscopy was ~4 years ago. Natalio is undergoing evaluation for what appears to be claudication with Dr. Alicea. EMG/NCS completed. Angiogram of the LE was also performed with reported angioplasty to the right leg performed by Dr. Kwon. For CKD, Natalio typically follows with Dr. Hampton in [place]. He follows in the rheumatology clinic with Dr. Carrasquillo for polyarthritis. His PCP is Paulette MONGE. Natalio received 40 mg IV furosemide in the ER yesterday for fluid retention. Furosemide 20 mg PO provided this AM. BP controlled with home Rx of amlodipine 10 mg daily, carvedilol 25 mg BID, hydralazine 10 mg TID, isosorbide mononitrate 60 mg daily, and valsartan 3230 mg daily. Limited records available for review. Baseline creatinine unknown. Nephrology consulted for "elevated creatinine." Records have been requested from his [facility] architect and [facility]. Available records include a renal US from 2019 demonstrating 12.9 cm right kidney and 14 cm left kidney. There are a few small simple cysts in the left kidney. Kidneys are otherwise normal in appearance. Renal artery duplex obtained in 2018 did not demonstrate any stenosis. UA demonstrates 3+ protein, trace ketones, trace blood. Microscopy notable for 11-20 RBC/hpf, no WBCs, +hyaline casts. Serum creatinine was 2.38 mg/dL on admission and 2.62 mg/dL this AM. Serum electrolytes are normal. Laboratory studies are otherwise notable for a hemoglobin of 7.1. CT pelvis and CTA chest (D dimer [id number]) were reviewed. CTA notable for pericardial and pleural effusions. Interstitial edema appreciated. Records from Dr. Jeffrey were reviewed. Last clinic visit was August 2024. Baseline serum creatinine ~2.0-2.4 mg/dL. Non-nephrotic range proteinuria previously quantified at 2.4 grams/day. History of laboratory abnormalities including mild hypercalcemia and hypomagnesemia noted. Not previously maintained on KATHERINE therapy for anemia. Kidney disease has been attributed to DKD and hypertension. Records from [facility] indicated admission from October 05, October 11, and October 25. Admitted in early September s/p fall with weakness and recent head injury for monitoring. Symptoms attributed to recent UTI treated with Bactrim. Second admission was with atypical chest pain. Nuclear stress demonstrated no evidence of ischemia. Symptoms were attributed to suspected GERD/PUD. Natalio then presented with weakness attributed to acute on chronic anemia. GI was not able to complete endoscopic evaluation. Hemoccult testing was negative. Following 2 u PRBC transfusion, hgb improved from 7.2 to 8.7. Hemoglobin was stable on monitoring and Natalio was discharged home with a plan for close outpatient follow up. He was treated for E coli UTI during the admission with ceftriaxone-->levofloxacin. During the hospitalization, he was diuresed for fluid retention with Bumex. HCTZ was resumed post discharge. Serum creatinine peaked at 3.4 mg/dL and improved to 1.8 mg/dL on testing completed November 01. Allergies Allergy/AdvReac Type Severity Reaction Status Date / Time cashew nut Allergy Unknown Unknown Verified 11/06/24 23:11 Penicillins Allergy Unknown Unknown Verified 11/06/24 23:11 Home Medications Medication Instructions Recorded Confirmed Type amitriptyline 100 mg tablet 100 mg PO HS 01/18/24 11/06/24 History aspirin 81 mg tablet,delayed 81 mg PO DAILY 01/18/24 11/06/24 History release blood-glucose meter (OneTouch 01/18/24 03/27/24 History Verio Flex Meter) carvedilol 25 mg tablet 25 mg PO BID 01/18/24 11/06/24 History cholecalciferol (vitamin D3) 25 25 mcg PO DAILY 01/18/24 11/06/24 History mcg (1,000 unit) capsule coenzyme Q10 200 mg capsule 200 mg PO DAILY 01/18/24 11/06/24 History (Q-Sorb Co Q-10) donepezil 5 mg tablet (Aricept) 5 mg PO HS 01/18/24 11/06/24 History fenofibrate 160 mg tablet 160 mg PO DAILY 01/18/24 11/06/24 History finasteride 5 mg tablet 5 mg PO DAILY 01/18/24 11/06/24 History krill 350 mg-omega-3 90 mg-dha 24 1 cap PO BID 01/18/24 11/06/24 History mg-epa 50 vj-caedwii-zaxbg capsule (MegaRed [place]-3 Krill Oil) leflunomide 20 mg tablet 20 mg PO HS 01/18/24 11/06/24 History dtkynhne-txfcaydg-dqfyn acid 400 1 tab PO DAILY 01/18/24 11/06/24 History mcg-vit K 20 mcg-lycop 300 mcg tablet nitroglycerin 0.4 mg sublingual 0.4 mg sublingual Q5M PRN Chest 01/18/24 11/06/24 History tablet Pain pen needle, diabetic 33 gauge x #100 ea 01/18/24 03/27/24 Rx 1/" tamsulosin 0.4 mg capsule 0.4 mg PO HS 01/18/24 11/06/24 History terazosin 10 mg capsule 10 mg PO HS 01/18/24 11/06/24 History trazodone 100 mg tablet 100 mg PO HS 01/18/24 11/06/24 History valsartan 320 mg tablet 320 mg PO DAILY 01/18/24 11/06/24 History vitamin B comp and C no.3 15 mg-10 1 cap PO DAILY 01/18/24 11/06/24 History mg-50 mg-5 mg-300 mg capsule (B Complex Plus Vitamin C) blood sugar diagnostic (OneTouch #400 ea 01/27/24 03/27/24 Rx Verio test strips) FreeStyle [place] 3 Sensor #6 ea 04/10/24 Rx (blood-glucose sensor) amlodipine 10 mg tablet 10 mg PO BID 09/20/24 11/06/24 History ascorbic acid (vitamin C) 500 mg 500 mg PO DAILY 09/20/24 11/06/24 History capsule atorvastatin 40 mg tablet 20 mg PO DAILY 09/20/24 11/06/24 History gabapentin 400 mg capsule 400 mg PO BID 09/20/24 11/06/24 History hydralazine 10 mg tablet 10 mg PO TID #90 tabs 09/20/24 11/06/24 Rx isosorbide mononitrate 60 mg 30 mg PO HS 09/20/24 11/06/24 History tablet,extended release 24 hr magnesium 200 mg tablet 400 mg PO DAILY 09/20/24 11/06/24 History methenamine hippurate 1 gram tablet 1 g PO BID 09/20/24 11/06/24 History omeprazole 20 mg capsule,delayed 60 mg PO HS 09/20/24 11/06/24 History release pramipexole 0.125 mg tablet 0.125 mg PO HS 09/20/24 11/06/24 History primidone 50 mg tablet 150 mg PO HS 09/20/24 11/06/24 History semaglutide 2 mg/dose (8 mg/3 mL) 0.25 mg subcut .weekly 09/20/24 11/06/24 History subcutaneous pen injector Patient History Medical History (Updated 11/07/24 @ 18:45 by Zion Colunga DO) Peripheral artery disease Urinary symptom or sign Heart trouble Surgical History (Updated 09/20/24 @ 15:06 by Ananda Gamez MD) History of prostate surgery H/O discectomy History of mastectomy Family History Mother Diabetes Heart disease Hypertension Father Heart disease Hypertension Social History Smoking Status: Former smoker Tobacco Type: Cigarettes Hx Alcohol Use: Yes Alcohol type: beer and wine Hx Substance Use: No Preferred Language: [place] Communication Ability: Effective Strategic Buyer Required: No Beliefs That Will Affect Care: None marital status: Current Living Situation: Spouse current occupational status: retired Other Information That Helps Us Care for You: No Feels Safe at Home: Yes Safety Concerns: Feels Safe At This Time Assistive Devices: None Assistive Devices Comment: Hearing aids, walker Review of Systems Review of Systems: All systems reviewed & are unremarkable except as noted in HPI & below Physical Exam Constitutional: well developed; no acute distress Eyes: + anicteric sclerae ENMT: Mouth: no oral mucosal abnormality and oral mucous membranes not dry Neck: normal visual inspection and trachea midline Respiratory: normal respiratory effort Auscultation: lungs clear to auscultation bilaterally and + diminished lung sounds Cardiovascular: Rate/Rhythm: regular rate Heart Sounds: normal S1 and normal S2 Extremities: + edema Musculoskeletal: Extremities: no cyanosis and no clubbing Skin: normal turgor; no lesions Neurologic: Motor/Sensory: + tremor; no asterixis Psychiatric: Orientation: alert and oriented x 3 Results & Data Vital Signs (Past 12 Hours) Vital Signs Temp Pulse Pulse Resp BP BP Pulse Ox 11/07/24 07:22 37.1 C 82 18 143/74 H 94 11/07/24 06:10 83 145/78 H 92 11/07/24 04:33 36.6 C 85 16 134/70 94 11/07/24 01:08 83 144/69 H 11/06/24 23:55 87 180/92 H 91 11/06/24 23:33 86 204/84 H 92 11/06/24 23:13 36.7 C 98 H 15 200/88 H 94 11/06/24 23:05 11/06/24 23:05 36.7 C 98 H 15 200/88 H 94 11/06/24 22:55 11/06/24 22:42 83 21 92 11/06/24 22:06 84 23 183/90 H 91 11/06/24 22:00 94 H 22 183/90 H 92 11/06/24 21:36 84 22 92 O2 Del Method O2 Flow Rate 11/07/24 07:22 Nasal Cannula 2 11/07/24 06:10 Nasal Cannula 2 11/07/24 04:33 Nasal Cannula 3 11/07/24 01:08 11/06/24 23:55 Room Air 11/06/24 23:33 Room Air 11/06/24 23:13 Room Air 11/06/24 23:05 Room Air 11/06/24 23:05 Room Air 11/06/24 22:55 Room Air 11/06/24 22:42 Room Air 11/06/24 22:06 Room Air 11/06/24 22:00 Room Air 11/06/24 21:36 Room Air Laboratory Results Laboratory Results - last 24 hr 11/06/24 11/06/24 11/06/24 15:25 17:20 17:46 WBC 9.46 RBC 2.56 L Hgb 7.3 L Hct 22.7 L MCV 88.7 MCH 28.5 MCHC 32.2 RDW Std Deviation 45.9 RDW Coeff of Jaziel 14.2 Plt Count 273 MPV 9.1 L Immature Gran % (Auto) 0.5 Neut % (Auto) 79.8 Lymph % (Auto) 9.3 [place] % (Auto) 7.9 Eos % (Auto) 2.1 Baso % (Auto) 0.4 Reticulocyte % (Auto) Neut # (Auto) 7.54 H Lymph # (Auto) 0.88 L [place] # (Auto) 0.75 H Eos # (Auto) 0.20 Baso # (Auto) 0.04 Reticulocyte # Immature Gran # (Auto) 0.05 Hypochromasia Present Microcytosis Present PT 13.0 H INR 1.2 H D-Dimer Sodium 134 L Potassium 4.4 Chloride 103 Carbon Dioxide 23 Anion Gap 8 BUN 34 H Creatinine 2.38 H Est Cr Clr Drug Dosing 29.2 eGFR 26.88 BUN/Creatinine Ratio 14.3 Glucose 220 H POC Glucose Estimat Average Glucose Hemoglobin A1c Lactate 0.7 Calcium 8.7 Magnesium 2.0 Iron 14 L TIBC 318 Transferrin 227 Transferrin % Sat 4 L Ferritin 611.0 H Total Bilirubin 0.5 AST 33 ALT 23 Alkaline Phosphatase 28 L Lactate Dehydrogenase 225 Troponin I High Sens 18.9 B-Natriuretic Peptide 1150 H Total Protein 6.8 Albumin 3.4 Globulin 3.4 Albumin/Globulin Ratio 1.0 Vitamin B12 Folate TSH 2.129 Urine Color Yellow Urine Appearance Clear Urine pH 6.0 Ur Specific [place] 1.015 Urine Protein 3+ H Urine Glucose (UA) Negative Urine Ketones Trace H Urine Blood Trace H Urine Nitrite Negative Urine Bilirubin Negative Urine Urobilinogen Negative Ur Leukocyte Esterase Negative Urine WBC (Auto) 0-5 Urine RBC (Auto) 11-20 H U Hyaline Cast (Auto) 3-5 H U Epithel Cells (Auto) 0-2 Urine Bacteria (Auto) None Seen Adenovirus (PCR) B. pertussis DNA (PCR) B.parapertussis DNA PCR C. pneumoniae DNA (PCR) Coronavirus OC43 (PCR) Coronavirus HKU1 (PCR) Coronavirus 229E (PCR) SARS-CoV-2 (PCR) Coronavirus NL63 (PCR) Human Metapneumovir PCR Influenza Type A (PCR) Influenza Type B (PCR) M. pneumoniae (PCR) Parainfluenza 1 (PCR) Parainfluenza 2 (PCR) Parainfluenza 3 (PCR) Parainfluenza 4 (PCR) RSV (PCR) Entero/Rhino (PCR) Blood Type Antibody Screen 11/06/24 11/06/24 11/06/24 18:14 23:16 23:23 WBC RBC Hgb Hct MCV MCH MCHC RDW Std Deviation RDW Coeff of Jaziel Plt Count MPV Immature Gran % (Auto) Neut % (Auto) Lymph % (Auto) [place] % (Auto) Eos % (Auto) Baso % (Auto) Reticulocyte % (Auto) 1.14 Neut # (Auto) Lymph # (Auto) [place] # (Auto) Eos # (Auto) Baso # (Auto) Reticulocyte # 0.030 Immature Gran # (Auto) Hypochromasia Microcytosis PT INR D-Dimer 77170 H* Sodium Potassium Chloride Carbon Dioxide Anion Gap BUN Creatinine Est Cr Clr Drug Dosing eGFR BUN/Creatinine Ratio Glucose POC Glucose 185 H Estimat Average Glucose Hemoglobin A1c Lactate Calcium Magnesium Iron TIBC Transferrin Transferrin % Sat Ferritin Total Bilirubin AST ALT Alkaline Phosphatase Lactate Dehydrogenase Troponin I High Sens B-Natriuretic Peptide Total Protein Albumin Globulin Albumin/Globulin Ratio Vitamin B12 639 Folate > 22.30 TSH Urine Color Urine Appearance Urine pH Ur Specific [place] Urine Protein Urine Glucose (UA) Urine Ketones Urine Blood Urine Nitrite Urine Bilirubin Urine Urobilinogen Ur Leukocyte Esterase Urine WBC (Auto) Urine RBC (Auto) U Hyaline Cast (Auto) U Epithel Cells (Auto) Urine Bacteria (Auto) Adenovirus (PCR) B. pertussis DNA (PCR) B.parapertussis DNA PCR C. pneumoniae DNA (PCR) Coronavirus OC43 (PCR) Coronavirus HKU1 (PCR) Coronavirus 229E (PCR) SARS-CoV-2 (PCR) Coronavirus NL63 (PCR) Human Metapneumovir PCR Influenza Type A (PCR) Influenza Type B (PCR) M. pneumoniae (PCR) Parainfluenza 1 (PCR) Parainfluenza 2 (PCR) Parainfluenza 3 (PCR) Parainfluenza 4 (PCR) RSV (PCR) Entero/Rhino (PCR) Blood Type Antibody Screen 11/06/24 11/07/24 11/07/24 Unknown 06:35 07:20 WBC 9.37 RBC 2.52 L Hgb 7.1 L Hct 21.5 L MCV 85.3 MCH 28.2 MCHC 33.0 RDW Std Deviation 43.8 RDW Coeff of Jaziel 14.0 Plt Count 259 MPV 9.0 L Immature Gran % (Auto) 0.6 Neut % (Auto) 76.5 Lymph % (Auto) 12.2 [place] % (Auto) 8.2 Eos % (Auto) 2.1 Baso % (Auto) 0.4 Reticulocyte % (Auto) Neut # (Auto) 7.16 H Lymph # (Auto) 1.14 L [place] # (Auto) 0.77 H Eos # (Auto) 0.20 Baso # (Auto) 0.04 Reticulocyte # Immature Gran # (Auto) 0.06 Hypochromasia Present Microcytosis PT 13.3 H INR 1.2 H D-Dimer Sodium 135 L Potassium 4.2 Chloride 102 Carbon Dioxide 23 Anion Gap 10 BUN 38 H Creatinine 2.62 H Est Cr Clr Drug Dosing 26.6 eGFR 23.95 BUN/Creatinine Ratio 14.5 Glucose 134 H POC Glucose 157 H Estimat Average Glucose Pending Hemoglobin A1c Pending Lactate Calcium 8.8 Magnesium Iron TIBC Transferrin Transferrin % Sat Ferritin Total Bilirubin 0.5 AST 48 H ALT 32 Alkaline Phosphatase 26 L Lactate Dehydrogenase Troponin I High Sens B-Natriuretic Peptide Total Protein 6.7 Albumin 3.5 Globulin 3.2 Albumin/Globulin Ratio 1.1 Vitamin B12 Folate TSH Urine Color Urine Appearance Urine pH Ur Specific [place] Urine Protein Urine Glucose (UA) Urine Ketones Urine Blood Urine Nitrite Urine Bilirubin Urine Urobilinogen Ur Leukocyte Esterase Urine WBC (Auto) Urine RBC (Auto) U Hyaline Cast (Auto) U Epithel Cells (Auto) Urine Bacteria (Auto) Adenovirus (PCR) Not Detected B. pertussis DNA (PCR) Not Detected B.parapertussis DNA PCR Not Detected C. pneumoniae DNA (PCR) Not Detected Coronavirus OC43 (PCR) Not Detected Coronavirus HKU1 (PCR) Not Detected Coronavirus 229E (PCR) Not Detected SARS-CoV-2 (PCR) Not Detected Coronavirus NL63 (PCR) Not Detected Human Metapneumovir PCR Not Detected Influenza Type A (PCR) Not Detected Influenza Type B (PCR) Not Detected M. pneumoniae (PCR) Not Detected Parainfluenza 1 (PCR) Not Detected Parainfluenza 2 (PCR) Not Detected Parainfluenza 3 (PCR) Not Detected Parainfluenza 4 (PCR) Not Detected RSV (PCR) Not Detected Entero/Rhino (PCR) Not Detected Blood Type A Positive Antibody Screen NEGATIVE Diagnostic Findings CT PELVIS Without Contrast COMPARISON: No relevant prior studies available. FINDINGS: Bowel: Abundant stool throughout the visualized colon. No definite bowel obstruction or ileus. Appendix: No findings to suggest acute appendicitis. Intraperitoneal space: Unremarkable. No free air. No significant fluid collection. Bladder: Distended urinary bladder. No stones. Reproductive: Unremarkable as visualized. Bones/joints: No acute fracture. No dislocation. Degenerative changes lower lumbar spine. Soft tissues: Unremarkable. Vasculature: Atherosclerotic vascular calcifications. No lower abdominal aortic aneurysm. Lymph nodes: Unremarkable. No enlarged lymph nodes. IMPRESSION: No acute fracture or dislocation. Degenerative changes lumbar spine. Distended urinary bladder. Abundant stool throughout the colon. CT angio chest PE protocol COMPARISON: None. FINDINGS: Mild to moderate bilateral pleural effusion is noted. Compression subsegmental atelectasis of underlying lung parenchyma is seen. Mild cardiomegaly is detected. Mild to moderate pericardial effusion is noted. Maximum thickness of the pericardial fluid rim measures approximately 1.4 cm along the richard basal aspect. Thickening of the bronchovascular bundle is noted involving bilateral lower lobes. Patchy areas of ground-glass densities with interstitial thickening are noted involving bilateral lung parenchyma. Few small solid nodules are noted in the right upper lobe. Near complete collapse of the lingula is seen. Ipsilateral mediastinal shift is noted. The central airways are patent. Atherosclerotic calcifications are noted involving aortic root, aorta and its branches, coronary arteries. No axillary or mediastinal adenopathy is identified. The thyroid is unremarkable. Imaged portions of the upper abdomen are unremarkable. No aggressive appearing osseous lesions are identified. IMPRESSION: 1. No evidence of pulmonary embolism. 2. Mild to moderate bilateral pleural effusion is noted. Compression subsegmental atelectasis of underlying lung parenchyma is seen. 3. Mild cardiomegaly is detected. 4. Mild to moderate pericardial effusion is noted. Maximum thickness of the pericardial fluid rim measures approximately 1.4 cm along the richard basal aspect. 5. Thickening of the bronchovascular bundle is noted involving bilateral lower lobes. 6. Patchy areas of ground-glass densities with interstitial thickening are noted involving bilateral lung parenchyma. Possibility of pulmonary edema needs consideration, likely cardiogenic. 7. Few small solid nodules are noted in the right upper lobe. 8. Atherosclerotic calcifications are noted involving aortic root, aorta and its branches, coronary arteries. RENAL ULTRASOUND HISTORY: Acute on chronic kidney disease CKD/TYESHA COMPARISON: CTA chest of same day, CT pelvis 11/06/2024 FINDINGS: Right kidney: 13.0 cm. Nonspecific perinephric stranding. No hydronephrosis. Mild cortical thinning. Left kidney: 13.3 cm. 2.0 cm cyst of the inferior pole. Nonspecific perinephric stranding. No shadowing renal calculi. Hypoechoic 1.8 cm lesion of the lateral interpolar left kidney, also likely an additional cyst. No hydronephrosis. Mild cortical thinning. Bladder: Not diagnostically visualized. IMPRESSION: 1. No renal calculi or hydronephrosis visualized by ultrasound. 2. Urinary bladder not visualized. PG Care Time/CCT Total # of Minutes Spent Total Time Spent with Patient: Total time spent is greater than 50% in coordination of care (as documented) at patient's floor/unit and/or counseling patient: Coding Level of Care Code 56550 IN/OBS CONSULT LVL 5,80M Diagnoses Chronic kidney disease N18.9 Normocytic anemia D64.9 Primary hypertension I10 Hypertension type: primary hypertension Diabetic nephropathy E11.21 BPH (benign prostatic hyperplasia) N40.0 Polyarthritis M13.0 (3) Hypertension Hypertension type: primary hypertension Qualified Code(s): I10 - Essential (primary) hypertension
--- NOTE | 2024-11-07 09:40 | Oncology Consultation ---
Date of Consultation November 07, 2024 Assessment & Plan (1) Anemia: due to paucity of prior records and no real medical records in our medical record I do not know the patient's baseline hemoglobin. Keeping that in mind I will recommend a comprehensive evaluation from anemia standpoint I recommend the following tests and the rationale behind these test results followed: 1. reticulocyte count: that will help us determine the underlying bone marrow function and bone marrow reserve 2. LDH, La test: will help us tell whether he is actively hemolyzing or not. Brief review of rest of the workup reveals no elevation in bilirubin, which means that the patient may not be actively hemolyzing 3. B12, folic acid, were reviewed, no evidence of deficiency of B12 or folic acid iron indicis reviewed, ferritin is 611, which is most likely a product of recent transfusions. If the patient has not had recent GI evaluation including colonoscopy and EGD and we do not find a correctable cause for the patient's anemia then it may be useful to consult gastroenterology for possible colonoscopy as well as EGD to rule out GI sources of bleeding . If all of the workup above is negative in that case I may recommend a bone marrow biopsy to rule out underlying bone marrow dysfunction especially if the r eticulocyte count is also low transfuse to maintain hemoglobin close to 8 given the patient's significant cardiorenal history Plan . Thank you for this interesting urological consult. Hematology will continue to follow the patient make appropriate recommendations History of Present Illness Reason for Consultation: Severe normocytic normochromic anemia Attending Physician: Rashad Haque MD History of Present Illness Mr. Natalio Yepez is an 79 year old male with hypertension, coronary artery disease (ISABEL RCA 2009), obesity, TRISH, DMII, BP, polyarthritis, essential tremor, RLS, anemia, and chronic kidney disease. Natalio presented to the ER at [facility] yesterday with shortness of breath on exertion, increasing weakness, and recurrent falls. hematology has been consulted to assist in management of this patient with severe normocytic normochromic anemia requiring blood transfusions. Of note the patient has never needed blood transfusions in the past. He is feeling very tired and fatigued, has no energy whatsoever. Allergies Allergy/AdvReac Type Severity Reaction Status Date / Time cashew nut Allergy Unknown Unknown Verified 11/06/24 23:11 Penicillins Allergy Unknown Unknown Verified 11/06/24 23:11 Home Medications Medication Instructions Recorded Confirmed Type amitriptyline 100 mg tablet 100 mg PO HS 01/18/24 11/06/24 History aspirin 81 mg tablet,delayed 81 mg PO DAILY 01/18/24 11/06/24 History release blood-glucose meter (OneTouch 01/18/24 03/27/24 History Verio Flex Meter) carvedilol 25 mg tablet 25 mg PO BID 01/18/24 11/06/24 History cholecalciferol (vitamin D3) 25 25 mcg PO DAILY 01/18/24 11/06/24 History mcg (1,000 unit) capsule coenzyme Q10 200 mg capsule 200 mg PO DAILY 01/18/24 11/06/24 History (Q-Sorb Co Q-10) donepezil 5 mg tablet (Aricept) 5 mg PO HS 01/18/24 11/06/24 History fenofibrate 160 mg tablet 160 mg PO DAILY 01/18/24 11/06/24 History finasteride 5 mg tablet 5 mg PO DAILY 01/18/24 11/06/24 History krill 350 mg-omega-3 90 mg-dha 24 1 cap PO BID 01/18/24 11/06/24 History mg-epa 50 im-afncuqk-nyhkx capsule (MegaRed Rye-3 Krill Oil) leflunomide 20 mg tablet 20 mg PO HS 01/18/24 11/06/24 History lftbqhef-hjsdnxzx-wqafq acid 400 1 tab PO DAILY 01/18/24 11/06/24 History mcg-vit K 20 mcg-lycop 300 mcg tablet nitroglycerin 0.4 mg sublingual 0.4 mg sublingual Q5M PRN Chest 01/18/24 11/06/24 History tablet Pain pen needle, diabetic 33 gauge x #100 ea 01/18/24 03/27/24 Rx 1/4" tamsulosin 0.4 mg capsule 0.4 mg PO HS 01/18/24 11/06/24 History terazosin 10 mg capsule 10 mg PO HS 01/18/24 11/06/24 History trazodone 100 mg tablet 100 mg PO HS 01/18/24 11/06/24 History valsartan 320 mg tablet 320 mg PO DAILY 01/18/24 11/06/24 History vitamin B comp and C no.3 15 mg-10 1 cap PO DAILY 01/18/24 11/06/24 History mg-50 mg-5 mg-300 mg capsule (B Complex Plus Vitamin C) blood sugar diagnostic (OneTouch #400 ea 01/27/24 03/27/24 Rx Verio test strips) FreeStyle [place] 3 Sensor #6 ea 04/10/24 Rx (blood-glucose sensor) amlodipine 10 mg tablet 10 mg PO BID 09/20/24 11/06/24 History ascorbic acid (vitamin C) 500 mg 500 mg PO DAILY 09/20/24 11/06/24 History capsule atorvastatin 40 mg tablet 20 mg PO DAILY 09/20/24 11/06/24 History gabapentin 400 mg capsule 400 mg PO BID 09/20/24 11/06/24 History hydralazine 10 mg tablet 10 mg PO TID #90 tabs 09/20/24 11/06/24 Rx isosorbide mononitrate 60 mg 30 mg PO HS 09/20/24 11/06/24 History tablet,extended release 24 hr magnesium 200 mg tablet 400 mg PO DAILY 09/20/24 11/06/24 History methenamine hippurate 1 gram tablet 1 g PO BID 09/20/24 11/06/24 History omeprazole 20 mg capsule,delayed 60 mg PO HS 09/20/24 11/06/24 History release pramipexole 0.125 mg tablet 0.125 mg PO HS 09/20/24 11/06/24 History primidone 50 mg tablet 150 mg PO HS 09/20/24 11/06/24 History semaglutide 2 mg/dose (8 mg/3 mL) 0.25 mg subcut .weekly 09/20/24 11/06/24 History subcutaneous pen injector Patient History Medical History (Updated 11/07/24 @ 17:37 by Lam Gamble MD) Peripheral artery disease Urinary symptom or sign Heart trouble Surgical History (Updated 09/20/24 @ 15:06 by Ananda Gamez MD) History of prostate surgery H/O discectomy History of mastectomy Family History Mother Diabetes Heart disease Hypertension Father Heart disease Hypertension Social History Smoking Status: Former smoker Tobacco Type: Cigarettes Hx Alcohol Use: Yes Alcohol type: beer and wine Hx Substance Use: No Preferred Language: Lao Communication Ability: Effective Pharmacy Technician Instructor Required: No Beliefs That Will Affect Care: None marital status: Current Living Situation: Spouse current occupational status: retired Other Information That Helps Us Care for You: No Feels Safe at Home: Yes Safety Concerns: Feels Safe At This Time Assistive Devices: None Assistive Devices Comment: Hearing aids, walker Review of Systems Review of Systems: Weak, tired, fatigued, no energy, poor oral Constitutional: as per Subjective / HPI Eyes: as per Subjective / HPI Ear, Nose, Mouth, Throat: as per Subjective / HPI Respiratory: as per Subjective / HPI Cardiovascular: as per Subjective / HPI Gastrointestinal: as per Subjective / HPI Genitourinary: + as per Subjective / HPI Musculoskeletal: as per Subjective / HPI Integumentary: as per Subjective / HPI Neurologic: as per Subjective / HPI Psychiatric: as per Subjective / HPI Endocrine: as per Subjective / HPI Physical Exam Constitutional: WD/WN, vitals as above Eyes: PERRL, conjunctivae normal, anicteric sclerae ENMT: external ear and nose normal, oropharynx normal Neck: trachea midline, no thyromegaly Respiratory: normal respiratory effort, lungs clear to auscultation Cardiovascular: RRR, no murmur, no edema Gastrointestinal (Abdomen): normal bowel sounds, soft, nontender, no hepatosplenomegaly Musculoskeletal: no cyanosis or clubbing, extremities motor strength 5/5 Skin: no rashes, warm and dry Neurologic: patellar DTR's 2+ bilat, sensation intact Psychiatric: A+Ox3, euthymic affect Genitourinary: no testicular masses, no penis abnormality Lymphatic: no cervical or axillary lymphadenopathy Results & Data Vital Signs (Past 12 Hours) Vital Signs Temp Pulse Pulse Resp BP BP Pulse Ox 11/07/24 07:22 37.1 C 82 18 143/74 H 94 11/07/24 06:10 83 145/78 H 92 11/07/24 04:33 36.6 C 85 16 134/70 94 11/07/24 01:08 83 144/69 H 11/06/24 23:55 87 180/92 H 91 11/06/24 23:33 86 204/84 H 92 11/06/24 23:13 36.7 C 98 H 15 200/88 H 94 11/06/24 23:05 11/06/24 23:05 36.7 C 98 H 15 200/88 H 94 11/06/24 22:55 11/06/24 22:42 83 21 92 11/06/24 22:06 84 23 183/90 H 91 11/06/24 22:00 94 H 22 183/90 H 92 O2 Del Method O2 Flow Rate 11/07/24 07:22 Nasal Cannula 2 11/07/24 06:10 Nasal Cannula 2 11/07/24 04:33 Nasal Cannula 3 11/07/24 01:08 11/06/24 23:55 Room Air 11/06/24 23:33 Room Air 11/06/24 23:13 Room Air 11/06/24 23:05 Room Air 11/06/24 23:05 Room Air 11/06/24 22:55 Room Air 11/06/24 22:42 Room Air 11/06/24 22:06 Room Air 11/06/24 22:00 Room Air
--- NOTE | 2024-11-07 11:20 | Hospitalist Progress Note ---
Date of Service November 07, 2024 Assessment & Plan (1) Recurrent falls: Plan: PT/OT - likely need for placement (2) Shortness of breath: Plan: given Lasix CT for PE pe(d dimer elevated) negative, showing moderate pleural effusions, possible cardiogenic pulmonary edema will get echo to assess EF may be related to anemia heme-onc consulted (3) Right buttock pain: Plan: Secondary to fall from yesterday No fracture (4) Elevated serum creatinine: Plan: h/o of CKD nephrology consult appreciated (5) Normocytic anemia: Plan: Unknown baseline but recently needing blood transfusions, patient unaware of why he is anemic Iron studies, B12, folate, LDH, retic count No melena Heme-onc consulted (6) Hypertension: Plan: Continue his usual regimen with carvedilol, amlodipine, ISMN (7) Claudication: Plan: Noted claudication in calves without relief from recent peripheral artery procedure, suspect neurogenic although he reports normal recent NCS/EMG testing in the last 6 months Request outside records (8) Peripheral artery disease: Plan: aspirin, atorvastatin (9) BPH (benign prostatic hyperplasia): Plan: Straight cath TID Continue terazosin Continue finasteride (10) Diabetes: Plan: HbA1C in AM On Ozempic outpatient NovoLog for correction factor only, will add basal coverage if needing this frequently (11) Generalized weakness: Plan: PT evaluation pending Admission and Anticipated Discharge Date Admission Date: November 06, 2024 Subjective No events overnight, pt resting comfortably in bed. Review of Systems Review of Systems: CONST: Negative for fever, body aches and chills. HENT: Negative for neck pain/stiffness, headache, congestion, sore throat, swelling. EYES: Negative for discharge/pain or vision changes. RESP: Negative for cough/hemoptysis and shortness of breath. CV: Negative chest pain, difficulty breathing, palpitations. ABD: Negative pain, nausea, vomiting. : Negative increase frequency, dysuria, blood in urine or stool. MUSC: Negative for muscle aches, edema. SKIN: Negative rash, lesions/sores. NEURO: Negative headache, dizziness, weakness. Physical Exam Physical Exam: GENERAL APPEARANCE NAD, activity normal for age, well developed/ well nourished, no cyanosis, pallor, or diaphoresis. EYES lids/conjunctiva normal. EARS/NOSE/THROAT Mucous membranes moist, nares normal, lips/teeth normal uvula midline without oral pharyngeal erythema, exudate or swelling TMs normal bilaterally. No lymphangitis/lymphedema. HEAD/NECK normocephalic atraumatic, no facial trauma, neck is supple. RESPIRATORY respiratory effort normal, speaks in full sentences, no tripod position, no accessory muscle use. Lungs clear to auscultation without rhonchi, wheezes, rales CARDIAC Regular rate and rhythm, no edema. ABDOMINAL Soft, ND/NT. No evidence of fluid wave. No pulsatile masses on exam, rebound tenderness, Ceja sign or pain over Mcburney's point. MUSCLES/EXTREMITIES No abnormal range of motion, no swelling. SKIN Warm, pink and dry. No rashes, dermatoses, petechiae or lesions. NEUROLOGICAL Speech is clear and appropriate. Normal level of consciousness. Gait and coordination are normal. 5/5 strength in all extremities. PSYCH Normal mood and affect. Judgement/competence is appropriate Results & Data Results & Data Vital Signs (Past 12 Hours) Vital Signs Temp Pulse Resp BP Pulse Ox O2 Del Method O2 Flow Rate 11/07/24 07:22 37.1 C 82 18 143/74 H 94 Nasal Cannula 2 11/07/24 06:10 83 145/78 H 92 Nasal Cannula 2 11/07/24 04:33 36.6 C 85 16 134/70 94 Nasal Cannula 3 11/07/24 01:08 83 144/69 H 11/06/24 23:55 87 180/92 H 91 Room Air 11/06/24 23:33 86 204/84 H 92 Room Air 11/06/24 23:13 36.7 C 98 H 15 200/88 H 94 Room Air PG Care Time/CCT Total # of Minutes Spent Total Time Spent with Patient: Total time spent is greater than 50% in coordination of care (as documented) at patient's floor/unit and/or counseling patient: Coding Level of Care Code 47817 SUB INP/OBS CARE 2/35MIN Diagnoses Recurrent falls R29.6 Shortness of breath R06.02 Right buttock pain M79.18 Elevated serum creatinine R79.89 Normocytic anemia D64.9 Primary hypertension I10 Hypertension type: primary hypertension Claudication I73.9 Peripheral artery disease I73.9 BPH (benign prostatic hyperplasia) N40.0 Diabetes E11.9 Generalized weakness R53.1 (6) Hypertension Hypertension type: primary hypertension Qualified Code(s): I10 - Essential (primary) hypertension
--- NOTE | 2024-11-07 11:52 | Ultrasound Report ---
RENAL ULTRASOUND HISTORY: Acute on chronic kidney disease CKD/TYESHA COMPARISON: CTA chest of same day, CT pelvis 11/06/2024 FINDINGS: Right kidney: 13.0 cm. Nonspecific perinephric stranding. No hydronephrosis. Mild cortical thinning. Left kidney: 13.3 cm. 2.0 cm cyst of the inferior pole. Nonspecific perinephric stranding. No shadowi ng renal calculi. Hypoechoic 1.8 cm lesion of the lateral interpolar left kidney, also likely an favio tional cyst. No hydronephrosis. Mild cortical thinning. Bladder: Not diagnostically visualized. IMPRESSION: 1. No renal calculi or hydronephrosis visualized by ultrasound. 2. Urinary bladder not visualized. ACT 112: Negative or not required by law. Electronically signed by: Yaakov Nunes M.D. 11/07/2024 11:51 AM
[2024-11-07 13:42] LABS: Estimated Average Glucose 131 mg/dl; Hemoglobin A1C 6.2 % (4.5-5.6)
--- NOTE | 2024-11-07 15:58 | XCELERA ---
[id number]
[2024-11-08 06:07] LABS: Base Excess VBG -2.2 mEq/L; HCO3 VBG 23 mmol/L; Oxygen Saturation VBG 86.4 %; PCO2 VBG 41 mmHg (38-50); PO2 VBG 58 mmHg; pH VBG 7.36 (7.36-7.41)
[2024-11-08 06:31] LABS: Albumin Level 3.3 gm/dl (3.4-5.0); BUN Creatinine Ratio 13.7 (10-20); C Reactive Protein 25.25 mg/dl (0-0.5); Calcium 8.6 mg/dl (8.6-10.3); Creatinine Clr Calc Pharmacy 20.3 ml/min; Hematocrit (blood only) 20.1 % (42.0-52.0); Hemoglobin 6.6 g/dl (14.0-18.0); Mean Corpuscular Hemoglobin 28.6 pg (25.0-34.0); Mean Corpuscular Hgb Conc 32.8 g/dL (32.0-36.0); Phosphorus 4.2 mg/dl (2.5-4.9); Platelet Count 268 K/uL (130-400); Potassium 4.3 mmol/L (3.5-5.1); RDW Coefficient of Variation 14.4 % (11.5-14.5); Red Blood Count 2.31 M/uL (4.70-6.10); White Blood Count 9.83 K/ul (4.8-10.8)
[2024-11-08 06:44] LABS: Basophils # (auto) 0.04 K/uL (0.00-0.20); Basophils % (auto) 0.4 %; Eosinophils # (auto) 0.28 K/uL (0.00-0.50); Eosinophils % (auto) 2.8 %; Immature Granulocytes # (auto) 0.05 K/uL (0.01-0.20); Immature Granulocytes % (auto) 0.5 %; Lymphocytes # (auto) 1.31 K/uL (1.20-3.40); Lymphocytes % (auto) 13.3 %; Monocytes # (auto) 0.82 K/uL (0.11-0.59); Monocytes % (auto) 8.3 %; Neutrophils # (auto) 7.33 K/uL (1.40-6.50); Neutrophils % (auto) 74.7 %; Polychromasia 1+
[2024-11-08] MEDS ORDERED: SODIUM CHLORIDE 0.9% 100 ML IV PRN ×2 (07:41→08:03)
[2024-11-08] MEDS ORDERED: SODIUM CHLORIDE 0.9% 50 ML IV PRN ×2 (07:41→08:03)
--- NOTE | 2024-11-08 09:53 | CT Scan Report ---
CT head/brain wo con CLINICAL HISTORY: 79 years-old Male with AMS. Acutely altered mental status TECHNIQUE: Multiple axial CT images of the head were obtained without contrast. A dose lowering tech nique was utilized adhering to the principles of ALARA. CT DOSE: 625.8 mGy.cm COMPARISON: 11/06/2024 FINDINGS: No acute intracranial hemorrhage, midline shift, intracranial mass, hydrocephalus, territorial ischem ia or abnormal extra-axial collection. Involutional changes with white matter hypodensities suggestiv e of chronic microvascular ischemic disease. Study is mildly motion degraded. The calvarium is intact. The paranasal sinuses, mastoid air cells, and middle ear cavities are clear . IMPRESSION: No acute intracranial abnormality. ACT 112: Negative or not required by law. The above report was generated using voice recognition software. It may contain grammatical, syntax o r spelling errors. Electronically signed by: Yaakov Nunes M.D. 11/08/2024 9:52 AM
--- NOTE | 2024-11-08 10:00 | Nephrology Progress Note ---
Date of Service November 08, 2024 Assessment & Plan (1) TYESHA (acute kidney injury): Plan: Non-oliguric. BP and volume status acceptable. Electrolytes normal. There is no emergent indication for dialysis at this time. Rise in creatinine suggestive of ATN in setting of CTA (contrast mediated) + acute on chronic anemia. Diuretics held this AM. Goal is to encourage slightly negative fluid balance. Urine studies demonstrating protein, RBC, and hyaline casts. No WBCs. However, clinical presentation atypical for GN. Continue CIC at least 3 x daily versus [place] to gravity. Tricor will be held due to kidney dysfunction. Methenamine will also be held. At minimum gabapentin should be reduced to 400 mg daily (consider holding if encephalopathy does not improve). Valsartan has been held. Document strict I/O's. Repeat serum metabolic profile tomorrow AM. (2) Chronic kidney disease: Plan: CKD III A3. CKD attributed to DM and hypertension by history. Baseline creatinine ~2.0 mg/dL. ACR 2.4 g/g by history. SIEP + SFL pending. (3) Normocytic anemia: Plan: Acute on chronic. Hematology following. No physical signs of active bleeding reported. PRBC transfusion support PRN for Hgb <7. Consider GI evaluation. SIEP + SFL pending. Consider possible BM suppression secondary to leflunomide. (4) Hypertension: Plan: BP acceptable. Valsartan held. (5) BPH (benign prostatic hyperplasia): Plan: Natalio has been performing regular CIC at home (~2-3x per day). No hydronephrosis on renal US. Continue CIC as Rx vs Greenwood to gravity. He reports upcoming outpatient urology evaluation. Finasteride and tamsulosin per home Rx. Outpatient urology follow up will be required for microscopic hematuria. (6) Polyarthritis: Plan: Consider that bone marrow suppression, weakness, and recent GI symptoms may be side effects of leflunomide? (7) Encephalopathy: Plan: Multiple potential contributing medications. Gabapentin will be reduced to once daily for now. Consider holding trazodone and Elavil. Admission and Anticipated Discharge Date Admission Date: November 06, 2024 Subjective Natalio is more lethargic this AM. He awakens to voice and/or touch but quickly drifts back to sleep. No fevers or chills. Remains on supplemental O2 2-[address] head completed this AM. Natalio denies any obvious focal neurologic complaints. He is oriented to person and place. Overall, Natalio denies any complaints except feeling "tired." No melena or hematochezia. Denies abdominal pain. BP has been acceptable. He remains non-oliguric. He denies chest pain or shortness of breath. Review of Systems Review of Systems: All systems reviewed & are unremarkable except as noted in HPI & below Physical Exam Constitutional: well developed; no acute distress Eyes: + anicteric sclerae ENMT: Mouth: no oral mucosal abnormality and oral mucous membranes not dry Neck: normal visual inspection and trachea midline Respiratory: normal respiratory effort Auscultation: lungs clear to auscultation bilaterally and + diminished lung sounds Cardiovascular: Rate/Rhythm: regular rate Heart Sounds: normal S1 and normal S2 Extremities: + edema Musculoskeletal: Extremities: no cyanosis and no clubbing Skin: normal turgor; no lesions Neurologic: Motor/Sensory: + tremor; no asterixis Psychiatric: Orientation: alert and oriented x 3 Results & Data Vital Signs (Past 12 Hours) Vital Signs Temp Pulse Resp BP Pulse Ox O2 Del Method O2 Flow Rate 11/08/24 07:56 37.1 C 76 16 134/76 97 Nasal Cannula 2 11/08/24 05:20 38.2 C H 77 16 122/66 94 Nasal Cannula 2 11/08/24 01:39 82 115/62 94 Nasal Cannula 2 11/08/24 00:37 122/73 94 Nasal Cannula 3 Laboratory Results Laboratory Results - last 24 hr 11/07/24 11/07/24 11/07/24 06:35 11:35 16:29 WBC RBC Hgb Hct MCV MCH MCHC RDW Std Deviation RDW Coeff of Jaziel Plt Count MPV Immature Gran % (Auto) Neut % (Auto) Lymph % (Auto) [place] % (Auto) Eos % (Auto) Baso % (Auto) Neut # (Auto) Lymph # (Auto) [place] # (Auto) Eos # (Auto) Baso # (Auto) Immature Gran # (Auto) Polychromasia VBG pH VBG pCO2 VBG pO2 VBG HCO3 VBG O2 Saturation VBG Base Excess Sodium Potassium Chloride Carbon Dioxide Anion Gap BUN Creatinine Est Cr Clr Drug Dosing eGFR BUN/Creatinine Ratio Glucose POC Glucose 184 H 199 H Estimat Average Glucose 131 Hemoglobin A1c 6.2 H Calcium Phosphorus C-Reactive Protein Total Protein (PEP) Albumin Albumin (PEP) Bsomg-7-Sbhciuhjp Czfik-2-Cwwxqkjkq Hasd-3-Mznfwvdc Sfwv-3-Kvcubfsv Gamma Globulins Monoclonal Peak 3 Ser Monoclonl Protein Ser Monoclonal Prot 2 PEP Interpretation Procalcitonin Serum Immunofixation Free Sterrett LC, Quant Free Lambda LC, Quant Free Sterrett/Lambda Ratio Blood Type Recheck 11/07/24 11/08/24 11/08/24 20:35 05:35 05:49 WBC 9.83 RBC 2.31 L Hgb 6.6 L* Hct 20.1 L* MCV 87.0 MCH 28.6 MCHC 32.8 RDW Std Deviation 46.0 RDW Coeff of Jaziel 14.4 Plt Count 268 MPV 9.0 L Immature Gran % (Auto) 0.5 Neut % (Auto) 74.7 Lymph % (Auto) 13.3 [place] % (Auto) 8.3 Eos % (Auto) 2.8 Baso % (Auto) 0.4 Neut # (Auto) 7.33 H Lymph # (Auto) 1.31 [place] # (Auto) 0.82 H Eos # (Auto) 0.28 Baso # (Auto) 0.04 Immature Gran # (Auto) 0.05 Polychromasia 1+ VBG pH VBG pCO2 VBG pO2 VBG HCO3 VBG O2 Saturation VBG Base Excess Sodium 135 L Potassium 4.3 Chloride 102 Carbon Dioxide 23 Anion Gap 10 BUN 47 H Creatinine 3.43 H D Est Cr Clr Drug Dosing 20.3 eGFR 17.34 BUN/Creatinine Ratio 13.7 Glucose 107 H POC Glucose 174 H 151 H Estimat Average Glucose Hemoglobin A1c Calcium 8.6 Phosphorus 4.2 C-Reactive Protein 25.25 H Total Protein (PEP) Pending Albumin 3.3 L Albumin (PEP) Pending Unwbs-0-Vbitotedx Pending Scudz-1-Jwjgchgwu Pending Ngma-3-Xzjczvwm Pending Zkzs-0-Zksukjdu Pending Gamma Globulins Pending Monoclonal Peak 3 Pending Ser Monoclonl Protein Pending Ser Monoclonal Prot 2 Pending PEP Interpretation Pending Procalcitonin Serum Immunofixation Pending Free Sterrett LC, Quant Pending Free Lambda LC, Quant Pending Free Sterrett/Lambda Ratio Pending Blood Type Recheck A Positive 11/08/24 11/08/24 11/08/24 05:55 05:56 07:50 WBC RBC Hgb Hct MCV MCH MCHC RDW Std Deviation RDW Coeff of Jaziel Plt Count MPV Immature Gran % (Auto) Neut % (Auto) Lymph % (Auto) [place] % (Auto) Eos % (Auto) Baso % (Auto) Neut # (Auto) Lymph # (Auto) [place] # (Auto) Eos # (Auto) Baso # (Auto) Immature Gran # (Auto) Polychromasia VBG pH 7.36 VBG pCO2 41 VBG pO2 58 VBG HCO3 23 VBG O2 Saturation 86.4 VBG Base Excess -2.2 Sodium Potassium Chloride Carbon Dioxide Anion Gap BUN Creatinine Est Cr Clr Drug Dosing eGFR BUN/Creatinine Ratio Glucose POC Glucose 140 H Estimat Average Glucose Hemoglobin A1c Calcium Phosphorus C-Reactive Protein Total Protein (PEP) Albumin Albumin (PEP) Fqbxd-6-Pjcausxze Vdhme-3-Gseefxnnb Ogmj-7-Rklnyvhc Bshj-2-Fbvyrruo Gamma Globulins Monoclonal Peak 3 Ser Monoclonl Protein Ser Monoclonal Prot 2 PEP Interpretation Procalcitonin 0.26 Serum Immunofixation Free Sterrett LC, Quant Free Lambda LC, Quant Free Sterrett/Lambda Ratio Blood Type Recheck PG Care Time/CCT Total # of Minutes Spent Total Time Spent with Patient: Total time spent is greater than 50% in coordination of care (as documented) at patient's floor/unit and/or counseling patient: Coding Level of Care Code 05117 SUB INP/OBS CARE 3/50MIN Diagnoses TYESHA (acute kidney injury) N17.9 Chronic kidney disease N18.9 Normocytic anemia D64.9 Primary hypertension I10 Hypertension type: primary hypertension BPH (benign prostatic hyperplasia) N40.0 Polyarthritis M13.0 Encephalopathy G93.40 (4) Hypertension Hypertension type: primary hypertension Qualified Code(s): I10 - Essential (primary) hypertension
--- NOTE | 2024-11-08 11:29 | Hospitalist Progress Note ---
Date of Service November 08, 2024 Assessment & Plan (1) Recurrent falls: Plan: PT/OT - likely need for placement (2) Shortness of breath: Plan: given Lasix CT for PE pe(d dimer elevated) negative, showing moderate pleural effusions, possible cardiogenic pulmonary edema will get echo to assess EF may be related to anemia heme-onc consulted transfusion of 2 units PRBC (3) Right buttock pain: Plan: Secondary to fall from yesterday No fracture (4) Elevated serum creatinine: Plan: h/o of CKD nephrology consult appreciated cr increased to 3.4 today possible ATN from recent IV contrast hold ARB (5) Normocytic anemia: Plan: Unknown baseline but recently needing blood transfusions, patient unaware of why he is anemic Iron studies, B12, folate, LDH, retic count No melena Heme-onc consult appreciated heme 6.6 today transfused 2 units f/u work up, possible BM suppression stool occult pending (6) Hypertension: Plan: Continue his usual regimen with carvedilol, amlodipine, ISMN (7) Claudication: Plan: Noted claudication in calves without relief from recent peripheral artery procedure, suspect neurogenic although he reports normal recent NCS/EMG testing in the last 6 months Request outside records (8) Peripheral artery disease: Plan: aspirin, atorvastatin (9) BPH (benign prostatic hyperplasia): Plan: Straight cath TID Continue terazosin Continue finasteride (10) Diabetes: Plan: HbA1C in AM On Ozempic outpatient NovoLog for correction factor only, will add basal coverage if needing this frequently (11) Generalized weakness: Plan: PT evaluation pending Plan AMS -CT head negative Admission and Anticipated Discharge Date Admission Date: November 06, 2024 Subjective Pt found lethargic this am. Responding only to sternal rub. Upgraded to PCU. CT head negative for acute pathology. Review of Systems Review of Systems: CONST: Negative for fever, body aches and chills. HENT: Negative for neck pain/stiffness, headache, congestion, sore throat, swelling. EYES: Negative for discharge/pain or vision changes. RESP: Negative for cough/hemoptysis and shortness of breath. CV: Negative chest pain, difficulty breathing, palpitations. ABD: Negative pain, nausea, vomiting. : Negative increase frequency, dysuria, blood in urine or stool. MUSC: Negative for muscle aches, edema. SKIN: Negative rash, lesions/sores. NEURO: Negative headache, dizziness, weakness. Physical Exam Physical Exam: GENERAL APPEARANCE NAD, activity normal for age, well developed/ well nourished, no cyanosis, pallor, or diaphoresis. EYES lids/conjunctiva normal. EARS/NOSE/THROAT Mucous membranes moist, nares normal, lips/teeth normal uvula midline without oral pharyngeal erythema, exudate or swelling TMs normal bilaterally. No lymphangitis/lymphedema. HEAD/NECK normocephalic atraumatic, no facial trauma, neck is supple. RESPIRATORY respiratory effort normal, speaks in full sentences, no tripod position, no accessory muscle use. Lungs clear to auscultation without rhonchi, wheezes, rales CARDIAC Regular rate and rhythm, no edema. ABDOMINAL Soft, ND/NT. No evidence of fluid wave. No pulsatile masses on exam, rebound tenderness, Ceja sign or pain over Mcburney's point. MUSCLES/EXTREMITIES No abnormal range of motion, no swelling. SKIN Warm, pink and dry. No rashes, dermatoses, petechiae or lesions. NEUROLOGICAL Speech is clear and appropriate. Normal level of consciousness. Gait and coordination are normal. 5/5 strength in all extremities. PSYCH Normal mood and affect. Judgement/competence is appropriate Results & Data Results & Data Vital Signs (Past 12 Hours) Vital Signs Temp Pulse Pulse Resp BP BP Pulse Ox 11/08/24 11:12 73 20 132/80 95 11/08/24 10:57 36.8 C 73 20 128/77 98 11/08/24 10:55 11/08/24 10:41 36.6 C 73 20 183/90 H 95 11/08/24 10:23 73 11/08/24 10:08 36.6 C 73 20 128/70 95 11/08/24 07:56 37.1 C 76 16 134/76 97 11/08/24 05:20 38.2 C H 77 16 122/66 94 11/08/24 01:39 82 115/62 94 11/08/24 00:37 122/73 94 O2 Del Method O2 Flow Rate 11/08/24 11:12 2 11/08/24 10:57 2 11/08/24 10:55 Nasal Cannula 3 11/08/24 10:41 3 11/08/24 10:23 11/08/24 10:08 Nasal Cannula 3 11/08/24 07:56 Nasal Cannula 2 11/08/24 05:20 Nasal Cannula 2 11/08/24 01:39 Nasal Cannula 2 11/08/24 00:37 Nasal Cannula 3 PG Care Time/CCT Total # of Minutes Spent Total Time Spent with Patient: Total time spent is greater than 50% in coordination of care (as documented) at patient's floor/unit and/or counseling patient: Coding Level of Care Code 96164 SUB INP/OBS CARE 235MIN Diagnoses Recurrent falls R29.6 Shortness of breath R06.02 Right buttock pain M79.18 Elevated serum creatinine R79.89 Normocytic anemia D64.9 Primary hypertension I10 Hypertension type: primary hypertension Claudication I73.9 Peripheral artery disease I73.9 BPH (benign prostatic hyperplasia) N40.0 Diabetes E11.9 Generalized weakness R53.1 (6) Hypertension Hypertension type: primary hypertension Qualified Code(s): I10 - Essential (primary) hypertension
--- NOTE | 2024-11-08 16:50 | Electrocardiogram Report ---
Test Reason : Blood Pressure : */* mmHG Vent. Rate : 78 BPM Atrial Rate : 78 BPM P-R Int : 158 ms QRS Dur : 102 ms QT Int : 388 ms P-R-T Axes : -16 -62 84 degrees QTcB Int : 442 ms Normal sinus rhythm Left anterior fascicular block Nonspecific ST and T wave abnormality Abnormal ECG When compared with ECG of 20-Sep-2024 14:22, DC interval has decreased Confirmed by Iam Melendez ([id number]) on 11/08/2024 4:50:20 PM Referred By: Confirmed By: Iam Melendez
[2024-11-08 20:16] LABS: Hematocrit (blood only) 30.2 % (42.0-52.0); Hemoglobin 9.7 g/dl (14.0-18.0)
[2024-11-09 06:07] LABS: Hemoglobin 8.9 g/dl (14.0-18.0); Mean Corpuscular Hemoglobin 28.4 pg (25.0-34.0); Mean Corpuscular Volume 86.3 fL (80.0-100.0); Mean Platelet Volume 8.8 fL (9.4-12.4); Platelet Count 267 K/uL (130-400); RDW Coefficient of Variation 14.6 % (11.5-14.5); RDW Standard Deviation 46.5 fL (36.4-46.3); Red Blood Count 3.13 M/uL (4.70-6.10)
[2024-11-09 06:21] LABS: Albumin Globulin Ratio 0.9 (0.9-2); Albumin Level 3.1 gm/dl (3.4-5.0); BUN Creatinine Ratio 15.6 (10-20); Bilirubin,Total 0.5 mg/dl (0.2-1.0); Calcium 8.4 mg/dl (8.6-10.3); Creatinine Clr Calc Pharmacy 19.8 ml/min; Globulin 3.6 gm/dl (2.5-4.0); Phosphorus 4.5 mg/dl (2.5-4.9); Potassium 4.3 mmol/L (3.5-5.1); Total Protein 6.7 gm/dl (6.0-8.3)
[2024-11-09] MEDS: GABAPENTIN 400 MG CAP PO SCH (09:00)
--- NOTE | 2024-11-09 09:58 | Nephrology Progress Note ---
Date of Service November 09, 2024 Assessment & Plan (1) TYESHA (acute kidney injury): Plan: Non-oliguric. BP and volume status acceptable. Electrolytes normal. There is no emergent indication for dialysis at this time. Presentation consistent with ATN in setting of CTA (contrast mediated) + acute on chronic anemia. Creatinine appears to be starting to plateau (3.43-->3.52 mg/dL). During this time, I would strongly advise that we continue to hold valsartan. The medication order was restarted when the patient was transferred to the PCU yesterday and medication administered this morning before I saw the patient. I have placed valsartan back on hold. Please call me, if you'd wish to discuss the medication. Diuretics have been held. Natalio remains in a slightly negative fluid balance with acceptable UOP. Continue to hold diuretics today. Goal is to encourage even or slightly negative fluid balance. Urine studies demonstrating protein, RBC, and hyaline casts. No WBCs. However, clinical presentation atypical for GN. Repeat UA/microscopy requested from [facility] today. Greenwood to gravity. Tricor will be held due to kidney dysfunction. Methenamine has also been held. Gabapentin has been reduced further to 300 mg daily today (consider holding if encephalopathy does not improve). Valsartan has been placed back on hold. Document strict I/O's. Repeat serum metabolic profile tomorrow AM. (2) Chronic kidney disease: Plan: CKD III A3. CKD attributed to DM and hypertension by history. Baseline creatinine ~2.0 mg/dL. ACR 2.4 g/g by history. SIEP + SFL pending. (3) Normocytic anemia: Plan: Acute on chronic. Hematology has been consulted. PRBC transfusion support provided yesterday. I discussed the case with Dr. Gamble briefly yesterday. No physical signs of active bleeding reported. PRBC transfusion support PRN for Hgb <7. Consider GI evaluation. SIEP + SFL pending. Consider possible BM suppression secondary to leflunomide. Constellation of findings, including elevated D dimer, that are concerning for potential underlying malignancy. (4) Hypertension: Plan: BP acceptable. Valsartan held. (5) BPH (benign prostatic hyperplasia): Plan: Natalio has been performing regular CIC at home (~2-3x per day). No hydronephrosis on renal US. Continue CIC as Rx vs Greenwood to gravity. He reports upcoming outpatient urology evaluation. Finasteride and tamsulosin per home Rx. Outpatient urology follow up will be required for microscopic hematuria. I will obtain a PSA with labs tomorrow AM. (6) Polyarthritis: Plan: Consider that bone marrow suppression, weakness, and recent GI symptoms may be side effects of leflunomide? (7) Encephalopathy: Plan: Multiple potential contributing medications. Gabapentin will be reduced to once daily for now. Consider adjustment to other potentially contributing medications, i.e. trazodone and Elavil. Admission and Anticipated Discharge Date Admission Date: November 06, 2024 Subjective No acute events overnight. Natalio was resting comfortably in bed this AM. He remains weak but is much more awake this AM. She states that he feels better overall. He is breathing comfortably. He denies pain. No fevers or chills. Greenwood was placed yesterday without difficulty. The catheter is draining slightly concentrated yellow urine. Review of Systems Review of Systems: All systems reviewed & are unremarkable except as noted in HPI & below Physical Exam Constitutional: well developed; no acute distress Eyes: + anicteric sclerae ENMT: Mouth: no oral mucosal abnormality and oral mucous membranes not dry Neck: normal visual inspection and trachea midline Respiratory: normal respiratory effort Auscultation: lungs clear to auscultation bilaterally and + diminished lung sounds Cardiovascular: Rate/Rhythm: regular rate Heart Sounds: normal S1 and normal S2 Extremities: + edema Musculoskeletal: Extremities: no cyanosis and no clubbing Skin: normal turgor; no lesions Neurologic: Motor/Sensory: + tremor; no asterixis Psychiatric: Orientation: alert and oriented x 3 Genitourinary: Greenwood draining slightly concentrated yellow urine Results & Data Vital Signs (Past 12 Hours) Vital Signs Temp Pulse Pulse Resp BP Pulse Ox O2 Del Method 11/09/24 08:33 37.2 C 76 18 125/69 91 Room Air 11/09/24 07:13 77 11/09/24 03:57 37.2 C 79 18 132/84 93 Nasal Cannula 11/08/24 23:33 36.5 C 72 18 122/68 92 Nasal Cannula 11/08/24 23:29 Nasal Cannula O2 Flow Rate 11/09/24 08:33 11/09/24 07:13 11/09/24 03:57 11/08/24 23:33 11/08/24 23:29 2 Laboratory Results Laboratory Results - last 24 hr 11/07/24 11/08/24 11/08/24 06:35 12:08 17:01 WBC RBC Hgb Hct MCV MCH MCHC RDW Std Deviation RDW Coeff of Jaziel Plt Count MPV Sodium Potassium Chloride Carbon Dioxide Anion Gap BUN Creatinine Est Cr Clr Drug Dosing eGFR BUN/Creatinine Ratio Glucose POC Glucose 190 H 184 H Lactate Calcium Phosphorus Total Bilirubin AST ALT Alkaline Phosphatase Total Protein Albumin Globulin Albumin/Globulin Ratio Blood Type A Positive Antibody Screen NEGATIVE Crossmatch See Detail 11/08/24 11/08/24 11/09/24 19:43 20:18 05:43 WBC 7.50 RBC 3.13 L Hgb 9.7 L D 8.9 L Hct 30.2 L 27.0 L MCV 86.3 MCH 28.4 MCHC 33.0 RDW Std Deviation 46.5 H RDW Coeff of Jaziel 14.6 H Plt Count 267 MPV 8.8 L Sodium 136 Potassium 4.3 Chloride 103 Carbon Dioxide 24 Anion Gap 9 BUN 55 H Creatinine 3.52 H Est Cr Clr Drug Dosing 19.8 eGFR 16.80 BUN/Creatinine Ratio 15.6 Glucose 102 H POC Glucose 222 H Lactate 0.5 Calcium 8.4 L Phosphorus 4.5 Total Bilirubin 0.5 AST 147 H ALT 84 H Alkaline Phosphatase 33 L Total Protein 6.7 Albumin 3.1 L Globulin 3.6 Albumin/Globulin Ratio 0.9 Blood Type Antibody Screen Crossmatch 11/09/24 08:02 WBC RBC Hgb Hct MCV MCH MCHC RDW Std Deviation RDW Coeff of Jaziel Plt Count MPV Sodium Potassium Chloride Carbon Dioxide Anion Gap BUN Creatinine Est Cr Clr Drug Dosing eGFR BUN/Creatinine Ratio Glucose POC Glucose 126 H Lactate Calcium Phosphorus Total Bilirubin AST ALT Alkaline Phosphatase Total Protein Albumin Globulin Albumin/Globulin Ratio Blood Type Antibody Screen Crossmatch PG Care Time/CCT Total # of Minutes Spent Total Time Spent with Patient: Total time spent is greater than 50% in coordination of care (as documented) at patient's floor/unit and/or counseling patient: Coding Level of Care Code 46854 SUB INP/OBS CARE 3/50MIN Diagnoses TYESHA (acute kidney injury) N17.9 Chronic kidney disease N18.9 Normocytic anemia D64.9 Primary hypertension I10 Hypertension type: primary hypertension BPH (benign prostatic hyperplasia) N40.0 Polyarthritis M13.0 Encephalopathy G93.40 (4) Hypertension Hypertension type: primary hypertension Qualified Code(s): I10 - Essential (primary) hypertension
--- NOTE | 2024-11-09 11:48 | Hospitalist Progress Note ---
Date of Service November 09, 2024 Assessment & Plan (1) Recurrent falls: Plan: PT/OT - likely need for placement (2) Shortness of breath: Plan: given Lasix CT for PE pe(d dimer elevated) negative, showing moderate pleural effusions, possible cardiogenic pulmonary edema Was related to anemia heme-onc consulted transfusion of 2 units PRBC symptoms improved (3) Right buttock pain: Plan: Secondary to fall from yesterday No fracture (4) Elevated serum creatinine: Plan: h/o of CKD nephrology consult appreciated cr stable at 3.5 today possible ATN from recent IV contrast hold ARB (5) Normocytic anemia: Plan: Unknown baseline but recently needing blood transfusions, patient unaware of why he is anemic Iron studies, B12, folate, LDH, retic count No melena Heme-onc consult appreciated heme improved to 8.9 today transfused 2 units f/u work up, possible BM suppression stool occult pending (6) Hypertension: Plan: Continue his usual regimen with carvedilol, amlodipine, ISMN (7) Claudication: Plan: Noted claudication in calves without relief from recent peripheral artery procedure, suspect neurogenic although he reports normal recent NCS/EMG testing in the last 6 months Request outside records (8) Peripheral artery disease: Plan: aspirin, atorvastatin (9) BPH (benign prostatic hyperplasia): Plan: Straight cath TID Continue terazosin Continue finasteride (10) Diabetes: Plan: HbA1C in AM On Ozempic outpatient NovoLog for correction factor only, will add basal coverage if needing this frequently (11) Generalized weakness: Plan: PT evaluation recommending rehab. Plan AMS -CT head negative Admission and Anticipated Discharge Date Admission Date: November 06, 2024 Subjective No events overnight. Pt awake and feeling much better today. Review of Systems Review of Systems: CONST: Negative for fever, body aches and chills. HENT: Negative for neck pain/stiffness, headache, congestion, sore throat, swelling. EYES: Negative for discharge/pain or vision changes. RESP: Negative for cough/hemoptysis and shortness of breath. CV: Negative chest pain, difficulty breathing, palpitations. ABD: Negative pain, nausea, vomiting. : Negative increase frequency, dysuria, blood in urine or stool. MUSC: Negative for muscle aches, edema. SKIN: Negative rash, lesions/sores. NEURO: Negative headache, dizziness, weakness. Physical Exam Physical Exam: GENERAL APPEARANCE NAD, activity normal for age, well developed/ well nourished, no cyanosis, pallor, or diaphoresis. EYES lids/conjunctiva normal. EARS/NOSE/THROAT Mucous membranes moist, nares normal, lips/teeth normal uvula midline without oral pharyngeal erythema, exudate or swelling TMs normal bilaterally. No lymphangitis/lymphedema. HEAD/NECK normocephalic atraumatic, no facial trauma, neck is supple. RESPIRATORY respiratory effort normal, speaks in full sentences, no tripod position, no accessory muscle use. Lungs clear to auscultation without rhonchi, wheezes, rales CARDIAC Regular rate and rhythm, no edema. ABDOMINAL Soft, ND/NT. No evidence of fluid wave. No pulsatile masses on exam, rebound tenderness, Ceja sign or pain over Mcburney's point. MUSCLES/EXTREMITIES No abnormal range of motion, no swelling. SKIN Warm, pink and dry. No rashes, dermatoses, petechiae or lesions. NEUROLOGICAL Speech is clear and appropriate. Normal level of consciousness. Gait and coordination are normal. 5/5 strength in all extremities. PSYCH Normal mood and affect. Judgement/competence is appropriate Results & Data Results & Data Vital Signs (Past 12 Hours) Vital Signs Temp Pulse Pulse Resp BP Pulse Ox O2 Del Method 11/09/24 10:08 Nasal Cannula 11/09/24 08:33 37.2 C 76 18 125/69 91 Room Air 11/09/24 07:13 77 11/09/24 03:57 37.2 C 79 18 132/84 93 Nasal Cannula O2 Flow Rate 11/09/24 10:08 2 11/09/24 08:33 11/09/24 07:13 11/09/24 03:57 PG Care Time/CCT Total # of Minutes Spent Total Time Spent with Patient: Total time spent is greater than 50% in coordination of care (as documented) at patient's floor/unit and/or counseling patient: Coding Level of Care Code 53346 SUB INP/OBS CARE 2/35MIN Diagnoses Recurrent falls R29.6 Shortness of breath R06.02 Right buttock pain M79.18 Elevated serum creatinine R79.89 Normocytic anemia D64.9 Primary hypertension I10 Hypertension type: primary hypertension Claudication I73.9 Peripheral artery disease I73.9 BPH (benign prostatic hyperplasia) N40.0 Diabetes E11.9 Generalized weakness R53.1 (6) Hypertension Hypertension type: primary hypertension Qualified Code(s): I10 - Essential (primary) hypertension
[2024-11-09 13:07] LABS: Appearance Urine Clear (Clear); Bacteria Urine Automated None Seen (None Seen); Bilirubin Urine Negative (Negative); Blood Urine Trace (Negative); Color Urine Yellow; Epithelial Cell Urine Auto 0-2 /hpf (0-2); Glucose Urine UA Negative (Negative); Ketones Urine Negative (Negative); Leukocyte Esterase Urine 1+ (Negative); Nitrite Urine Negative (Negative); Protein Urine 3+ (Negative); RBC Urine Automated 0-2 /hpf (0-2); Urobilinogen Urine Negative (Negative)
[2024-11-10 06:28] LABS: Hematocrit (blood only) 27.8 % (42.0-52.0); Mean Corpuscular Hgb Conc 32.4 g/dL (32.0-36.0); Mean Corpuscular Volume 86.3 fL (80.0-100.0); Mean Platelet Volume 8.7 fL (9.4-12.4); Platelet Count 299 K/uL (130-400); RDW Coefficient of Variation 14.2 % (11.5-14.5); RDW Standard Deviation 44.9 fL (36.4-46.3); Red Blood Count 3.22 M/uL (4.70-6.10); White Blood Count 5.32 K/ul (4.8-10.8)
[2024-11-10 06:42] LABS: Albumin Level 3.1 gm/dl (3.4-5.0); BUN Creatinine Ratio 19.2 (10-20); Calcium 8.3 mg/dl (8.6-10.3); Creatinine Clr Calc Pharmacy 25.1 ml/min; Phosphorus 3.1 mg/dl (2.5-4.9); Potassium 4.3 mmol/L (3.5-5.1)
[2024-11-10 08:57] LABS: Albumin 2.6 g/dL (3.8-4.8); Alpha 1 Globulin 0.6 g/dL (0.2-0.3); Alpha 2 Globulin 1.2 g/dL (0.5-0.9); Beta-1-Globulin 0.4 g/dL (0.4-0.6); Beta-2-Globulin 0.5 g/dL (0.2-0.5); Free Kappa 78.9 mg/L (3.3-19.4); Free Kappa/Lambda Ratio 1.36 (0.26-1.65); Free Lambda 58.2 mg/L (5.7-26.3); Gamma Globulin 0.7 g/dL (0.8-1.7); Monoclonal Protein Band 1 DNR g/dL (NONE DETECTED); Monoclonal Protein Band 2 DNR g/dL (NONE DETECTED); Monoclonal Protein Band 3 DNR g/dL (NONE DETECTED); Total Protein 5.9 g/dL (6.1-8.1)
--- NOTE | 2024-11-10 11:28 | Hospitalist Progress Note ---
Date of Service November 10, 2024 Assessment & Plan (1) Recurrent falls: Plan: PT/OT - to d/c back to rehab (2) Shortness of breath: Plan: given Lasix CT for PE pe(d dimer elevated) negative, showing moderate pleural effusions, possible cardiogenic pulmonary edema Was related to anemia heme-onc consulted transfusion of 2 units PRBC symptoms improved (3) Right buttock pain: Plan: Secondary to fall from yesterday No fracture (4) Elevated serum creatinine: Plan: h/o of CKD nephrology consult appreciated cr stable at 2.71 today possible ATN from recent IV contrast hold ARB (5) Normocytic anemia: Plan: Unknown baseline but recently needing blood transfusions, patient unaware of why he is anemic Iron studies, B12, folate, LDH, retic count No melena Heme-onc consult appreciated heme improved to 8.9 today transfused 2 units f/u work up, possible BM suppression stool occult pending (6) Hypertension: Plan: Continue his usual regimen with carvedilol, amlodipine, ISMN (7) Claudication: Plan: Noted claudication in calves without relief from recent peripheral artery procedure, suspect neurogenic although he reports normal recent NCS/EMG testing in the last 6 months Request outside records (8) Peripheral artery disease: Plan: aspirin, atorvastatin (9) BPH (benign prostatic hyperplasia): Plan: Straight cath TID Continue terazosin Continue finasteride (10) Diabetes: Plan: HbA1C in AM On Ozempic outpatient NovoLog for correction factor only, will add basal coverage if needing this frequently (11) Generalized weakness: Plan: PT evaluation recommending rehab. Plan AMS -CT head negative Admission and Anticipated Discharge Date Admission Date: November 06, 2024 Subjective No events overnight. Pt awake and feeling much better today. Review of Systems Review of Systems: CONST: Negative for fever, body aches and chills. HENT: Negative for neck pain/stiffness, headache, congestion, sore throat, sw elling. EYES: Negative for discharge/pain or vision changes. RESP: Negative for cough/hemoptysis and shortness of breath. CV: Negative chest pain, difficulty breathing, palpitations. ABD: Negative pain, nausea, vomiting. : Negative increase frequency, dysuria, blood in urine or stool. MUSC: Negative for muscle aches, edema. SKIN: Negative rash, lesions/sores. NEURO: Negative headache, dizziness, weakness. Physical Exam Physical Exam: GENERAL APPEARANCE NAD, activity normal for age, well developed/ well nourished, no cyanosis, pallor, or diaphoresis. EYES lids/conjunctiva normal. EARS/NOSE/THROAT Mucous membranes moist, nares normal, lips/teeth normal uvula midline without oral pharyngeal erythema, exudate or swelling TMs normal bilaterally. No lymphangitis/lymphedema. HEAD/NECK normocephalic atraumatic, no facial trauma, neck is supple. RESPIRATORY respiratory effort normal, speaks in full sentences, no tripod position, no accessory muscle use. Lungs clear to auscultation without rhonchi, wheezes, rales CARDIAC Regular rate and rhythm, no edema. ABDOMINAL Soft, ND/NT. No evidence of fluid wave. No pulsatile masses on exam, rebound tenderness, Ceja sign or pain over Mcburney's point. MUSCLES/EXTREMITIES No abnormal range of motion, no swelling. SKIN Warm, pink and dry. No rashes, dermatoses, petechiae or lesions. NEUROLOGICAL Speech is clear and appropriate. Normal level of consciousness. Gait and coordination are normal. 5/5 strength in all extremities. PSYCH Normal mood and affect. Judgement/competence is appropriate Results & Data Results & Data Vital Signs (Past 12 Hours) Vital Signs Temp Pulse Pulse Resp BP Pulse Ox O2 Del Method 11/10/24 11:10 69 17 128/71 96 Nasal Cannula 11/10/24 07:36 36.7 C 74 16 146/68 H 91 Nasal Cannula 11/10/24 07:30 73 11/10/24 07:30 Nasal Cannula 11/10/24 03:54 36.7 C 80 18 130/65 93 Nasal Cannula 11/09/24 23:38 36.6 C 72 18 131/64 92 Nasal Cannula O2 Flow Rate 11/10/24 11:10 2 11/10/24 07:36 2 11/10/24 07:30 11/10/24 07:30 2 11/10/24 03:54 11/09/24 23:38 PG Care Time/CCT Total # of Minutes Spent Total Time Spent with Patient: Total time spent is greater than 50% in coordination of care (as documented) at patient's floor/unit and/or counseling patient: Coding Level of Care Code 01877 SUB INP/OBS CARE 2/35MIN Diagnoses Recurrent falls R29.6 Shortness of breath R06.02 Right buttock pain M79.18 Elevated serum creatinine R79.89 Normocytic anemia D64.9 Primary hypertension I10 Hypertension type: primary hypertension Claudication I73.9 Peripheral artery disease I73.9 BPH (benign prostatic hyperplasia) N40.0 Diabetes E11.9 Generalized weakness R53.1 (6) Hypertension Hypertension type: primary hypertension Qualified Code(s): I10 - Essential (primary) hypertension
--- NOTE | 2024-11-10 12:09 | Nephrology Progress Note ---
Date of Service November 10, 2024 Assessment & Plan (1) TYESHA (acute kidney injury): Plan: Non-oliguric. Evidence of renal recovery with autodiuresis noted. Creatinine improving. BP and volume status acceptable. Electrolytes normal. Presentation consistent with ATN in setting of CTA (contrast mediated) + acute on chronic anemia. Continue to hold valsartan. Diuretics have been held. Natalio remains in a slightly negative fluid balance with acceptable UOP. Continue to hold diuretics today. Goal is to maintain slightly negative fluid balance. Urine studies on admission demonstrating protein, RBC, and hyaline casts, no WBCs. Repeat urine microscopy with WBCs but no RBCs. Findings suggestive of cysitis from urinary catheter. Tricor has been held due to kidney dysfunction. Methenamine has also been held. Gabapentin reduced to 300 mg daily. Valsartan remains on hold. Document strict I/O's. Repeat serum metabolic profile tomorrow AM. (2) Chronic kidney disease: Plan: CKD III A3. CKD attributed to DM and hypertension by history. Baseline creatinine ~2.0 mg/dL. ACR 2.4 g/g by history. SIEP + SFL pending. (3) Normocytic anemia: Plan: Acute on chronic. Hematology has been consulted. PRBC transfusion support provided 11/08. No physical signs of active bleeding reported. Hgb stable. PRBC transfusion support PRN for Hgb <7. Consider GI evaluation. SIEP + SFL pending. (4) Hypertension: Plan: BP acceptable. Valsartan held. (5) BPH (benign prostatic hyperplasia): Plan: Natalio has been performing regular CIC at home (~2-3x per day). No hydronephrosis on renal US. Continue CIC as Rx once [place] removed. Upcoming outpatient urology evaluation scheduled. Finasteride and tamsulosin per home Rx. PSA <0.1. Admission and Anticipated Discharge Date Admission Date: November 06, 2024 Subjective No acute events overnight. Natalio remains weak and lethargic. PT evaluating this AM. No fevers or chills. He is breathing comfortably. Urine output has increased. Negative fluid balance without diuretics noted. Appetite remains poor. Review of Systems Review of Systems: All systems reviewed & are unremarkable except as noted in HPI & below Physical Exam Constitutional: well developed; no acute distress Eyes: + anicteric sclerae ENMT: Mouth: no oral mucosal abnormality and oral mucous membranes not dry Neck: normal visual inspection and trachea midline Respiratory: normal respiratory effort Auscultation: lungs clear to auscultation bilaterally and + diminished lung sounds Cardiovascular: Rate/Rhythm: regular rate Heart Sounds: normal S1 and normal S2 Extremities: + edema Musculoskeletal: Extremities: no cyanosis and no clubbing Skin: normal turgor; no lesions Neurologic: Motor/Sensory: + tremor; no asterixis Psychiatric: Orientation: alert and oriented x 3 Results & Data Vital Signs (Past 12 Hours) Vital Signs Temp Pulse Pulse Resp BP Pulse Ox O2 Del Method 11/10/24 11:10 69 17 128/71 96 Nasal Cannula 11/10/24 07:36 36.7 C 74 16 146/68 H 91 Nasal Cannula 11/10/24 07:30 73 11/10/24 07:30 Nasal Cannula 11/10/24 03:54 36.7 C 80 18 130/65 93 Nasal Cannula O2 Flow Rate 11/10/24 11:10 2 11/10/24 07:36 2 11/10/24 07:30 11/10/24 07:30 2 11/10/24 03:54 Laboratory Results Laboratory Results - last 24 hr 11/08/24 11/09/24 11/09/24 05:49 17:03 20:27 WBC RBC Hgb Hct MCV MCH MCHC RDW Std Deviation RDW Coeff of Jaziel Plt Count MPV Sodium Potassium Chloride Carbon Dioxide Anion Gap BUN Creatinine Est Cr Clr Drug Dosing eGFR BUN/Creatinine Ratio Glucose POC Glucose 234 H 156 H Calcium Phosphorus Total Protein (PEP) 5.9 L Albumin Albumin (PEP) 2.6 L Tmwmh-5-Vzyvbcsxn 0.6 H Cdkyd-5-Lfgwvevbd 1.2 H Nsmh-9-Zfuirski 0.4 Znnk-0-Eudvirzt 0.5 Gamma Globulins 0.7 L Monoclonal Peak 3 DNR Ser Monoclonl Protein DNR Ser Monoclonal Prot 2 DNR PEP Interpretation SEE NOTE Prostate Specific Ag Urine Color Urine Appearance Urine pH Ur Specific [employer] Urine Protein Urine Glucose (UA) Urine Ketones Urine Blood Urine Nitrite Urine Bilirubin Urine Urobilinogen Ur Leukocyte Esterase Urine WBC (Auto) Urine RBC (Auto) U Hyaline Cast (Auto) U Epithel Cells (Auto) Urine Bacteria (Auto) Serum Immunofixation SEE NOTE Free [place] LC, Quant 78.9 H Free Lambda LC, Quant 58.2 H Free [place]/Lambda Ratio 1.36 11/09/24 11/10/24 11/10/24 Unknown 05:53 08:42 WBC 5.32 RBC 3.22 L Hgb 9.0 L Hct 27.8 L MCV 86.3 MCH 28.0 MCHC 32.4 RDW Std Deviation 44.9 RDW Coeff of Jaziel 14.2 Plt Count 299 MPV 8.7 L Sodium 134 L Potassium 4.3 Chloride 102 Carbon Dioxide 24 Anion Gap 8 BUN 52 H Creatinine 2.71 H D Est Cr Clr Drug Dosing 25.1 eGFR 23.00 BUN/Creatinine Ratio 19.2 Glucose 100 H POC Glucose 123 H Calcium 8.3 L Phosphorus 3.1 D Total Protein (PEP) Albumin 3.1 L Albumin (PEP) Wlmje-8-Qsfrllpsy Toprm-5-Rmtuajjdv Nqrj-6-Tvhksefn Wbcf-5-Fhruocdr Gamma Globulins Monoclonal Peak 3 Ser Monoclonl Protein Ser Monoclonal Prot 2 PEP Interpretation Prostate Specific Ag 0.030 Urine Color Yellow Urine Appearance Clear Urine pH 5.0 Ur Specific [employer] 1.020 Urine Protein 3+ H Urine Glucose (UA) Negative Urine Ketones Negative Urine Blood Trace H Urine Nitrite Negative Urine Bilirubin Negative Urine Urobilinogen Negative Ur Leukocyte Esterase 1+ H Urine WBC (Auto) 11-20 H Urine RBC (Auto) 0-2 U Hyaline Cast (Auto) 3-5 H U Epithel Cells (Auto) 0-2 Urine Bacteria (Auto) None Seen Serum Immunofixation Free [place] LC, Quant Free Lambda LC, Quant Free [place]/Lambda Ratio 11/10/24 11:10 WBC RBC Hgb Hct MCV MCH MCHC RDW Std Deviation RDW Coeff of Jaziel Plt Count MPV Sodium Potassium Chloride Carbon Dioxide Anion Gap BUN Creatinine Est Cr Clr Drug Dosing eGFR BUN/Creatinine Ratio Glucose POC Glucose 120 H Calcium Phosphorus Total Protein (PEP) Albumin Albumin (PEP) Kyppl-3-Lzodocqff Cqbub-4-Wxokvgmsf Gebc-6-Bfzqfsbo Htag-4-Revpoqli Gamma Globulins Monoclonal Peak 3 Ser Monoclonl Protein Ser Monoclonal Prot 2 PEP Interpretation Prostate Specific Ag Urine Color Urine Appearance Urine pH Ur Specific [employer] Urine Protein Urine Glucose (UA) Urine Ketones Urine Blood Urine Nitrite Urine Bilirubin Urine Urobilinogen Ur Leukocyte Esterase Urine WBC (Auto) Urine RBC (Auto) U Hyaline Cast (Auto) U Epithel Cells (Auto) Urine Bacteria (Auto) Serum Immunofixation Free [place] LC, Quant Free Lambda LC, Quant Free [place]/Lambda Ratio PG Care Time/CCT Total # of Minutes Spent Total Time Spent with Patient: Total time spent is greater than 50% in coordination of care (as documented) at patient's floor/unit and/or counseling patient: Coding Level of Care Code 66585 SUB INP/OBS CARE 3/50MIN Diagnoses TYESHA (acute kidney injury) N17.9 Chronic kidney disease N18.9 Normocytic anemia D64.9 Primary hypertension I10 Hypertension type: primary hypertension BPH (benign prostatic hyperplasia) N40.0 (4) Hypertension Hypertension type: primary hypertension Qualified Code(s): I10 - Essential (primary) hypertension
[2024-11-10 13:42] LABS: Folate (Folic Acid),Ser orPlas 13.57 ng/ml (>5.38)
--- NOTE | 2024-11-11 00:51 | Magnetic Resonance Report ---
Exam(s): MRI HEAD Without Contrast EXAM: MR Head Without Intravenous Contrast CLINICAL HISTORY: tremors. TECHNIQUE: Magnetic resonance images of the head/brain without intravenous contrast in multiple planes. COMPARISON: CT Brain 11-08-2024. FINDINGS: Brain: Age-appropriate central and peripheral atrophy. Mild degree of supratentorial periventricular and subcortical white matter hyperintensities on FLAIR and T2-weighted images. Ventricles: No midline shift. No ventriculomegaly. Bones/joints: Unremarkable. No acute fracture. Sinuses: Unremarkable as visualized. No acute sinusitis. Mastoid air cells: Unremarkable as visualized. No mastoid effusion. Orbits: Unremarkable as visualized. IMPRESSION: 1. No acute stroke or hemorrhage. 2. Nonspecific white matter changes most commonly seen with small vessel disease. Electronically signed by: Carlton Lopez M.D. 11/11/24 00:50 AM
[2024-11-11 06:24] LABS: Hematocrit (blood only) 28.6 % (42.0-52.0); Hemoglobin 9.4 g/dl (14.0-18.0); Mean Corpuscular Hemoglobin 28.3 pg (25.0-34.0); Mean Corpuscular Hgb Conc 32.9 g/dL (32.0-36.0); Mean Corpuscular Volume 86.1 fL (80.0-100.0); Mean Platelet Volume 8.6 fL (9.4-12.4); Platelet Count 314 K/uL (130-400); RDW Coefficient of Variation 14.3 % (11.5-14.5); RDW Standard Deviation 45.1 fL (36.4-46.3); Red Blood Count 3.32 M/uL (4.70-6.10); White Blood Count 5.25 K/ul (4.8-10.8)
--- NOTE | 2024-11-11 08:49 | Nephrology Progress Note ---
Date of Service November 11, 2024 Assessment & Plan (1) TYESHA (acute kidney injury): Plan: * Contrast-induced nephropathy/ATN -patient is now in recovery phase * Patient is nonoliguric. UO 1.6L last shift * Clinically euvolemic, electrolyte balance is acceptable. 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 * Monitor daily BMP, UO (2) Chronic kidney disease: Plan: * CKD stage G3/A3 (moderate impairment). Baseline creatinine 2.0. UACR 2.4. CKD attributed to DM, HTN * Primary logistics administrator is Dr. Jeffrey * 11/18 kappa lambda light chain ratio within normal limits (3) Normocytic anemia: Plan: * Hematology has been consulted. * s/p transfusion 11/08/24 * If hematologic evaluation is unrevealing, consider whether leflunomide may be contributing to anemia (4) Hypertension: Plan: * BP acceptable. Valsartan held (5) BPH (benign prostatic hyperplasia): Plan: * Performs CIC at home 2-3x/day * Continue CIC as Rx once [place] removed * Outpatient urology evaluation scheduled * Continue finasteride and tamsulosin per home Rx * PSA <0.1. Admission and Anticipated Discharge Date Admission Date: November 06, 2024 Subjective Mr. Yepez was evaluated in his hospital room this morning. At the time my evaluation he was alert and oriented to self, place and month. He followed commands appropriately. Mr. Yepez denied angina, dyspnea, abdominal pain, change in bowel habits or difficulty voiding. He voices no medical concerns. Review of Systems Constitutional: no fever Eyes: no problem reported Ear, Nose, Mouth, Throat: no problem reported Respiratory: no cough and no dyspnea Cardiovascular: no chest pain and no dyspnea Gastrointestinal: no abdominal pain, no nausea, no vomiting and no diarrhea/loose stools Genitourinary: no urinary hesitancy or no hematuria Physical Exam Constitutional: not in distress Eyes: PERRL, conjunctivae normal, anicteric sclerae ENMT: external ear and nose normal, oropharynx normal Neck: trachea midline, no thyromegaly Respiratory: normal respiratory effort, lungs clear to auscultation Cardiovascular: Rate/Rhythm: regular rate and regular rhythm Heart Sounds: + murmur (Aortic outflow murmur) Extremities: no edema Gastrointestinal (Abdomen): normal bowel sounds, soft, nontender, no hepatosplenomegaly Musculoskeletal: Extremities: no cyanosis and no clubbing Skin: no rashes, warm and dry Neurologic: awake; not confused Results & Data Vital Signs (Past 12 Hours) Vital Signs Temp Pulse Pulse Resp BP Pulse Ox O2 Del Method 11/11/24 07:23 36.4 C L 70 143/56 H 94 Room Air 11/11/24 07:08 69 11/11/24 03:16 36.9 C 56 L 20 126/69 97 Nasal Cannula 11/10/24 23:12 36.6 C 66 18 145/79 H 96 Nasal Cannula 11/10/24 21:00 74 O2 Flow Rate 11/11/24 07:23 11/11/24 07:08 11/11/24 03:16 2 11/10/24 23:12 4 11/10/24 21:00 Laboratory Results Laboratory Results - last 24 hr 11/10/24 11/10/24 11/10/24 11:10 11:35 16:10 WBC RBC Hgb Hct MCV MCH MCHC RDW Std Deviation RDW Coeff of Jaziel Plt Count MPV Sodium Potassium Chloride Carbon Dioxide Anion Gap BUN Creatinine Est Cr Clr Drug Dosing eGFR BUN/Creatinine Ratio Glucose POC Glucose 120 H 168 H Calcium Lactate Dehydrogenase 209 Vitamin B12 932 H Folate 13.57 RBC Folate Pending Stool Occult Bld Scrn Direct Antiglob Test Negative CARO (IgG-AHG) Neg CARO, Polyspecific Neg CARO C3b, C3d 5 Min Neg 11/10/24 11/10/24 11/11/24 20:02 Unknown 05:52 WBC 5.25 RBC 3.32 L Hgb 9.4 L Hct 28.6 L MCV 86.1 MCH 28.3 MCHC 32.9 RDW Std Deviation 45.1 RDW Coeff of Jaziel 14.3 Plt Count 314 MPV 8.6 L Sodium Potassium Chloride Carbon Dioxide Anion Gap BUN Creatinine Est Cr Clr Drug Dosing eGFR BUN/Creatinine Ratio Glucose POC Glucose 167 H Calcium Lactate Dehydrogenase Vitamin B12 Folate RBC Folate Stool Occult Bld Scrn Negative Direct Antiglob Test CARO (IgG-AHG) CARO, Polyspecific CARO C3b, C3d 5 Min 11/11/24 11/11/24 06:00 07:26 WBC RBC Hgb Hct MCV MCH MCHC RDW Std Deviation RDW Coeff of Jaziel Plt Count MPV Sodium 135 L Potassium 4.4 Chloride 103 Carbon Dioxide 24 Anion Gap 8 BUN 49 H Creatinine 2.38 H D Est Cr Clr Drug Dosing 28.6 eGFR 26.88 BUN/Creatinine Ratio 20.6 H Glucose 96 POC Glucose 95 Calcium 8.7 Lactate Dehydrogenase Vitamin B12 Folate RBC Folate Stool Occult Bld Scrn Direct Antiglob Test CARO (IgG-AHG) CARO, Polyspecific CARO C3b, C3d 5 Min PG Care Time/CCT Total # of Minutes Spent Total Time Spent with Patient: Total time spent is greater than 50% in coordination of care (as documented) at patient's floor/unit and/or counseling patient: Coding Level of Care Code 96347 SUB INP/OBS CARE 3/50MIN Diagnoses TYESHA (acute kidney injury) N17.9 Chronic kidney disease N18.9 Normocytic anemia D64.9 Primary hypertension I10 Hypertension type: primary hypertension BPH (benign prostatic hyperplasia) N40.0 (4) Hypertension Hypertension type: primary hypertension Qualified Code(s): I10 - Essential (primary) hypertension
[2024-11-11] MEDS: GABAPENTIN 300 MG CAP PO SCH (09:01)
[2024-11-11 09:23] LABS: BUN Creatinine Ratio 20.6 (10-20); Calcium 8.7 mg/dl (8.6-10.3); Creatinine Clr Calc Pharmacy 28.6 ml/min; Potassium 4.4 mmol/L (3.5-5.1)
--- NOTE | 2024-11-11 10:48 | Hospitalist Progress Note ---
Date of Service November 11, 2024 Assessment & Plan (1) Recurrent falls: Plan: PT/OT - to d/c back to rehab (2) Shortness of breath: Plan: given Lasix CT for PE pe(d dimer elevated) negative, showing moderate pleural effusions, possible cardiogenic pulmonary edema Was related to anemia heme-onc consulted transfusion of 2 units PRBC symptoms resolved (3) Right buttock pain: Plan: Secondary to fall from yesterday No fracture (4) Elevated serum creatinine: Plan: h/o of CKD nephrology consult appreciated cr stable at 2.71 today possible ATN from recent IV contrast hold ARB (5) Normocytic anemia: Plan: Unknown baseline but recently needing blood transfusions, patient unaware of why he is anemic Iron studies, B12, folate, LDH, retic count No melena Heme-onc consult appreciated heme improved to 9.6 today transfused 2 units f/u work up, possible BM suppression stool occult pending GI consulted (6) Hypertension: Plan: Continue his usual regimen with carvedilol, amlodipine, ISMN (7) Claudication: Plan: Noted claudication in calves without relief from recent peripheral artery procedure, suspect neurogenic although he reports normal recent NCS/EMG testing in the last 6 months Request outside records (8) Peripheral artery disease: Plan: aspirin, atorvastatin (9) BPH (benign prostatic hyperplasia): Plan: Straight cath TID Continue terazosin Continue finasteride (10) Diabetes: Plan: HbA1C in AM On Ozempic outpatient NovoLog for correction factor only, will add basal coverage if needing this frequently (11) Generalized weakness: Plan: PT evaluation recommending rehab. Plan AMS -CT head negative Admission and Anticipated Discharge Date Admission Date: November 06, 2024 Subjective No events overnight. Pt resting comfortably in bed. Review of Systems Review of Systems: CONST: Negative for fever, body aches and chills. HENT: Negative for neck pain/stiffness, headache, congestion, sore throat, swelling. EYES: Negative for discharge/pain or vision changes. RESP: Negative for cough/hemoptysis and shortness of breath. CV: Negative chest pain, difficulty breathing, palpitations. ABD: Negative pain, nausea, vomiting. : Negative increase frequency, dysuria, blood in urine or stool. MUSC: Negative for muscle aches, edema. SKIN: Negative rash, lesions/sores. NEURO: Negative headache, dizziness, weakness. Physical Exam Physical Exam: GENERAL APPEARANCE NAD, activity normal for age, well developed/ well nourished, no cyanosis, pallor, or diaphoresis. EYES lids/conjunctiva normal. EARS/NOSE/THROAT Mucous membranes moist, nares normal, lips/teeth normal uvula midline without oral pharyngeal erythema, exudate or swelling TMs normal bilaterally. No lymphangitis/lymphedema. HEAD/NECK normocephalic atraumatic, no facial trauma, neck is supple. RESPIRATORY respiratory effort normal, speaks in full sentences, no tripod position, no accessory muscle use. Lungs clear to auscultation without rhonchi, wheezes, rales CARDIAC Regular rate and rhythm, no edema. ABDOMINAL Soft, ND/NT. No evidence of fluid wave. No pulsatile masses on exam, rebound tenderness, Ceja sign or pain over Mcburney's point. MUSCLES/EXTREMITIES No abnormal range of motion, no swelling. SKIN Warm, pink and dry. No rashes, dermatoses, petechiae or lesions. NEUROLOGICAL Speech is clear and appropriate. Normal level of consciousness. Gait and coordination are normal. 5/5 strength in all extremities. PSYCH Normal mood and affect. Judgement/competence is appropriate Results & Data Results & Data Vital Signs (Past 12 Hours) Vital Signs Temp Pulse Pulse Resp BP Pulse Ox O2 Del Method 11/11/24 09:40 Room Air 11/11/24 07:23 36.4 C L 70 143/56 H 94 Room Air 11/11/24 07:08 69 11/11/24 03:16 36.9 C 56 L 20 126/69 97 Nasal Cannula 11/10/24 23:12 36.6 C 66 18 145/79 H 96 Nasal Cannula O2 Flow Rate 11/11/24 09:40 11/11/24 07:23 11/11/24 07:08 11/11/24 03:16 2 11/10/24 23:12 4 PG Care Time/CCT Total # of Minutes Spent Total Time Spent with Patient: Total time spent is greater than 50% in coordination of care (as documented) at patient's floor/unit and/or counseling patient: Coding Level of Care Code 09223 SUB INP/OBS CARE 2/35MIN Diagnoses Recurrent falls R29.6 Shortness of breath R06.02 Right buttock pain M79.18 Elevated serum creatinine R79.89 Normocytic anemia D64.9 Primary hypertension I10 Hypertension type: primary hypertension Claudication I73.9 Peripheral artery disease I73.9 BPH (benign prostatic hyperplasia) N40.0 Diabetes E11.9 Generalized weakness R53.1 (6) Hypertension Hypertension type: primary hypertension Qualified Code(s): I10 - Essential (primary) hypertension
--- NOTE | 2024-11-11 12:33 | History & Physical Report ---
Date of Service November 11, 2024 Assessment & Plan Admission and Anticipated Discharge Date Admission Date: November 06, 2024 History of Present Illness Chief Complaint: Unexplained anemia Primary Care Provider: Jhonatan Castillo -year-old gentleman admitted with worsening renal function potentially contrast related. We do not have a baseline hemoglobin though he did drop his hemoglobin below 7 requiring transfusion. Hemoglobin was 9 on admission. He has been seen by both hematology and nephrology. There were some increased protein in her urine and light change though the serum protein electrophoresis does not suggest monoclonal gammopathy Patient and he denies allison melena hematochezia or hematemesis he denies heartburn indigestion. He denies any recent bowel change. Only blood thinners aspirin by his report. Patient tells me he has had previous colonoscopies in the past his last one was within the last 5 years. He states a small polyp was removed and told to return in 5 years. Patient is not iron deficient. Stools recently returned heme-negative. Allergies Allergy/AdvReac Type Severity Reaction Status Date / Time cashew nut Allergy Unknown Unknown Verified 11/06/24 23:11 Penicillins Allergy Unknown Unknown Verified 11/06/24 23:11 Home Medications Medication Instructions Recorded Confirmed Type amitriptyline 100 mg tablet 100 mg PO HS 01/18/24 11/06/24 History aspirin 81 mg tablet,delayed 81 mg PO DAILY 01/18/24 11/06/24 History release blood-glucose meter (OneTouch 01/18/24 03/27/24 History Verio Flex Meter) carvedilol 25 mg tablet 25 mg PO BID 01/18/24 11/06/24 History cholecalciferol (vitamin D3) 25 25 mcg PO DAILY 01/18/24 11/06/24 History mcg (1,000 unit) capsule coenzyme Q10 200 mg capsule 200 mg PO DAILY 01/18/24 11/06/24 History (Q-Sorb Co Q-10) donepezil 5 mg tablet (Aricept) 5 mg PO HS 01/18/24 11/06/24 History fenofibrate 160 mg tablet 160 mg PO DAILY 01/18/24 11/06/24 History finasteride 5 mg tablet 5 mg PO DAILY 01/18/24 11/06/24 History krill 350 mg-omega-3 90 mg-dha 24 1 cap PO BID 01/18/24 11/06/24 History mg-epa 50 pj-awqllei-snbwa capsule (MegaRed D Hanis-3 Krill Oil) leflunomide 20 mg tablet 20 mg PO HS 01/18/24 11/06/24 History iwpacrwn-lmpeyvsa-vgtqj acid 400 1 tab PO DAILY 01/18/24 11/06/24 History mcg-vit K 20 mcg-lycop 300 mcg tablet nitroglycerin 0.4 mg sublingual 0.4 mg sublingual Q5M PRN Chest 01/18/24 11/06/24 History tablet Pain pen needle, diabetic 33 gauge x #100 ea 01/18/24 03/27/24 Rx /" tamsulosin 0.4 mg capsule 0.4 mg PO HS 01/18/24 11/06/24 History terazosin 10 mg capsule 10 mg PO HS 01/18/24 11/06/24 History trazodone 100 mg tablet 100 mg PO HS 01/18/24 11/06/24 History valsartan 320 mg tablet 320 mg PO DAILY 01/18/24 11/06/24 History vitamin B comp and C no.3 15 mg-10 1 cap PO DAILY 01/18/24 11/06/24 History mg-50 mg-5 mg-300 mg capsule (B Complex Plus Vitamin C) blood sugar diagnostic (OneTouch #400 ea 01/27/24 03/27/24 Rx Verio test strips) FreeStyle [place] 3 Sensor #6 ea 04/10/24 Rx (blood-glucose sensor) amlodipine 10 mg tablet 10 mg PO BID 09/20/24 11/06/24 History ascorbic acid (vitamin C) 500 mg 500 mg PO DAILY 09/20/24 11/06/24 History capsule atorvastatin 40 mg tablet 20 mg PO DAILY 09/20/24 11/06/24 History gabapentin 400 mg capsule 400 mg PO BID 09/20/24 11/06/24 History hydralazine 10 mg tablet 10 mg PO TID #90 tabs 09/20/24 11/06/24 Rx isosorbide mononitrate 60 mg 30 mg PO HS 09/20/24 11/06/24 History tablet,extended release 24 hr magnesium 200 mg tablet 400 mg PO DAILY 09/20/24 11/06/24 History methenamine hippurate 1 gram tablet 1 g PO BID 09/20/24 11/06/24 History omeprazole 20 mg capsule,delayed 60 mg PO HS 09/20/24 11/06/24 History release pramipexole 0.125 mg tablet 0.125 mg PO HS 09/20/24 11/06/24 History primidone 50 mg tablet 150 mg PO HS 09/20/24 11/06/24 History semaglutide 2 mg/dose (8 mg/3 mL) 0.25 mg subcut .weekly 09/20/24 11/06/24 History subcutaneous pen injector Past Med/Surg History Problem List (Updated 11/08/24 @ 10:19 by Zion Colunga DO) Encephalopathy TYESHA (acute kidney injury) Polyarthritis Anemia Chronic kidney disease Right buttock pain Elevated serum creatinine Shortness of breath Normocytic anemia Claudication Ambulatory dysfunction (Acute) Elevated brain natriuretic peptide (BNP) level (Acute) Generalized weakness (Acute) Recurrent falls (Acute) Stented coronary artery Mitral regurgitation CAD (coronary artery disease) Diabetic nephropathy Type 2 diabetes mellitus Urinary symptom or sign Hypercholesterolemia Hypertension Diabetes Arthritis BPH (benign prostatic hyperplasia) Dysuria Medical History (Updated 11/08/24 @ 10:19 by Zion Colunga DO) Peripheral artery disease Urinary symptom or sign Heart trouble Surgical History (Updated 09/20/24 @ 15:06 by Ananda Gamez MD) History of prostate surgery H/O discectomy History of mastectomy Family History Mother Diabetes Heart disease Hypertension Father Heart disease Hypertension Social History Smoking Status: Former smoker Tobacco Type: Cigarettes Hx Alcohol Use: Yes Alcohol type: beer and wine Hx Substance Use: No Preferred Language: Uzbek Communication Ability: Effective Performance Improvement Analyst Required: No Beliefs That Will Affect Care: None marital status: Current Living Situation: Spouse current occupational status: retired Other Information That Helps Us Care for You: No Feels Safe at Home: Yes Safety Concerns: Feels Safe At This Time Assistive Devices: None Assistive Devices Comment: Hearing aids, walker Review of Systems Patient denies fevers chills or abdominal pain Respiratory no increased cough cardiovascular currently denies any chest pain GI as mentioned history present illness Review of systems otherwise negative Physical Exam Physical Exam: Patient was sitting at the edge of the bed. He did not a peer in any acute distress. He could talk in full sentences. The eyes did not reveal any jaundice Results & Data Vital Signs (Past 12 Hours) Vital Signs Temp Pulse Pulse Resp BP Pulse Ox O2 Del Method 11/11/24 11:49 36.6 C 67 134/69 94 Room Air 11/11/24 09:40 Room Air 11/11/24 07:23 36.4 C L 70 143/56 H 94 Room Air 11/11/24 07:08 69 11/11/24 03:16 36.9 C 56 L 20 126/69 97 Nasal Cannula O2 Flow Rate 11/11/24 11:49 11/11/24 09:40 11/11/24 07:23 11/11/24 07:08 11/11/24 03:16 2 Code Status & VTE Plan VTE Prophylaxis Plan VTE Prophylaxis will be ordered: No Coding Level of Care Code 25744 INT INP/OBS CARE 2MIN
--- NOTE | 2024-11-11 13:16 | History & Physical Report ---
Date of Service November 11, 2024 Assessment & Plan (1) Anemia: Plan: Anemia probably multifactorial. However there is no clear evidence that this would be a gastrointestinal source this is based on the fact he is heme- negative. He has not seen melena or hematochezia. He is not iron deficient. So rather than a blood loss problem I believe this is a production problem. Reviewed this with the patient. We defer to nephrology and hematology in regards to further workup. Patient can follow-up with his usual gastroenterology at discharge may be due for a colonoscopy in the next year or so. GI signed off reconsult as needed Admission and Anticipated Discharge Date Admission Date: November 06, 2024 History of Present Illness Chief Complaint: Anemia Primary Care Provider: Jhonatan Castillo -year-old gentleman admitted with worsening renal function potentially contrast related. We do not have a baseline hemoglobin though he did drop his hemoglobin below 7 requiring transfusion. Hemoglobin was 9 on admission. He has been seen by both hematology and nephrology. There were some increased protein in her urine and light change though the serum protein electrophoresis does not suggest monoclonal gammopathy Patient and he denies allison melena hematochezia or hematemesis he denies heartburn indigestion. He denies any recent bowel change. Only blood thinners aspirin by his report. Patient tells me he has had previous colonoscopies in the past his last one was within the last 5 years. He states a small polyp was removed and told to return in 5 years. Patient is not iron deficient. Stools recently returned heme-negative. Allergies Allergy/AdvReac Type Severity Reaction Status Date / Time cashew nut Allergy Unknown Unknown Verified 11/06/24 23:11 Penicillins Allergy Unknown Unknown Verified 11/06/24 23:11 Home Medications Medication Instructions Recorded Confirmed Type amitriptyline 100 mg tablet 100 mg PO HS 01/18/24 11/06/24 History aspirin 81 mg tablet,delayed 81 mg PO DAILY 01/18/24 11/06/24 History release blood-glucose meter (OneTouch 01/18/24 03/27/24 History Verio Flex Meter) carvedilol 25 mg tablet 25 mg PO BID 01/18/24 11/06/24 History cholecalciferol (vitamin D3) 25 25 mcg PO DAILY 01/18/24 11/06/24 History mcg (1,000 unit) capsule coenzyme Q10 200 mg capsule 200 mg PO DAILY 01/18/24 11/06/24 History (Q-Sorb Co Q-10) donepezil 5 mg tablet (Aricept) 5 mg PO HS 01/18/24 11/06/24 History fenofibrate 160 mg tablet 160 mg PO DAILY 01/18/24 11/06/24 History finasteride 5 mg tablet 5 mg PO DAILY 01/18/24 11/06/24 History krill 350 mg-omega-3 90 mg-dha 24 1 cap PO BID 01/18/24 11/06/24 History mg-epa 50 ft-dgnqxvr-vbtlm capsule (MegaRed [place]-3 Krill Oil) leflunomide 20 mg tablet 20 mg PO HS 01/18/24 11/06/24 History mfeckpax-cmupzquy-onswr acid 400 1 tab PO DAILY 01/18/24 11/06/24 History mcg-vit K 20 mcg-lycop 300 mcg tablet nitroglycerin 0.4 mg sublingual 0.4 mg sublingual Q5M PRN Chest 01/18/24 11/06/24 History tablet Pain pen needle, diabetic 33 gauge x #100 ea 01/18/24 03/27/24 Rx 1/" tamsulosin 0.4 mg capsule 0.4 mg PO HS 01/18/24 11/06/24 History terazosin 10 mg capsule 10 mg PO HS 01/18/24 11/06/24 History trazodone 100 mg tablet 100 mg PO HS 01/18/24 11/06/24 History valsartan 320 mg tablet 320 mg PO DAILY 01/18/24 11/06/24 History vitamin B comp and C no.3 15 mg-10 1 cap PO DAILY 01/18/24 11/06/24 History mg-50 mg-5 mg-300 mg capsule (B Complex Plus Vitamin C) blood sugar diagnostic (OneTouch #400 ea 01/27/24 03/27/24 Rx Verio test strips) FreeStyle [place] 3 Sensor #6 ea 04/10/24 Rx (blood-glucose sensor) amlodipine 10 mg tablet 10 mg PO BID 09/20/24 11/06/24 History ascorbic acid (vitamin C) 500 mg 500 mg PO DAILY 09/20/24 11/06/24 History capsule atorvastatin 40 mg tablet 20 mg PO DAILY 09/20/24 11/06/24 History gabapentin 400 mg capsule 400 mg PO BID 09/20/24 11/06/24 History hydralazine 10 mg tablet 10 mg PO TID #90 tabs 09/20/24 11/06/24 Rx isosorbide mononitrate 60 mg 30 mg PO HS 09/20/24 11/06/24 History tablet,extended release 24 hr magnesium 200 mg tablet 400 mg PO DAILY 09/20/24 11/06/24 History methenamine hippurate 1 gram tablet 1 g PO BID 09/20/24 11/06/24 History omeprazole 20 mg capsule,delayed 60 mg PO HS 09/20/24 11/06/24 History release pramipexole 0.125 mg tablet 0.125 mg PO HS 09/20/24 11/06/24 History primidone 50 mg tablet 150 mg PO HS 09/20/24 11/06/24 History semaglutide 2 mg/dose (8 mg/3 mL) 0.25 mg subcut .weekly 09/20/24 11/06/24 History subcutaneous pen injector Past Med/Surg History Problem List (Updated 11/08/24 @ 10:19 by Zion Colunga DO) Encephalopathy TYESHA (acute kidney injury) Polyarthritis Anemia Chronic kidney disease Right buttock pain Elevated serum creatinine Shortness of breath Normocytic anemia Claudication Ambulatory dysfunction (Acute) Elevated brain natriuretic peptide (BNP) level (Acute) Generalized weakness (Acute) Recurrent falls (Acute) Stented coronary artery Mitral regurgitation CAD (coronary artery disease) Diabetic nephropathy Type 2 diabetes mellitus Urinary symptom or sign Hypercholesterolemia Hypertension Diabetes Arthritis BPH (benign prostatic hyperplasia) Dysuria Medical History (Updated 11/08/24 @ 10:19 by Zion Colunga DO) Peripheral artery disease Urinary symptom or sign Heart trouble Surgical History (Updated 09/20/24 @ 15:06 by Ananda Gamez MD) History of prostate surgery H/O discectomy History of mastectomy Family History Mother Diabetes Heart disease Hypertension Father Heart disease Hypertension Social History Smoking Status: Former smoker Tobacco Type: Cigarettes Hx Alcohol Use: Yes Alcohol type: beer and wine Hx Substance Use: No Preferred Language: Haitian Communication Ability: Effective 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 Beliefs That Will Affect Care: None marital status: Current Living Situation: Spouse current occupational status: retired Other Information That Helps Us Care for You: No Feels Safe at Home: Yes Safety Concerns: Feels Safe At This Time Assistive Devices: None Assistive Devices Comment: Hearing aids, walker Review of Systems Patient denies fevers chills or abdominal pain Respiratory no increased cough cardiovascular currently denies any chest pain GI as mentioned history present illness Review of systems otherwise negative Physical Exam Physical Exam: Patient was sitting at the edge of the bed. He did not a peer in any acute distress. He could talk in full sentences. The eyes did not reveal any jaundice Chest and heart exams per primary service. Abdominal examination benign. No guarding rebound. 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
[2024-11-12 07:17] LABS: Hematocrit (blood only) 31.3 % (42.0-52.0); Mean Corpuscular Hemoglobin 27.7 pg (25.0-34.0); Mean Corpuscular Hgb Conc 31.9 g/dL (32.0-36.0); Mean Corpuscular Volume 86.7 fL (80.0-100.0); Mean Platelet Volume 8.5 fL (9.4-12.4); Platelet Count 319 K/uL (130-400); RDW Standard Deviation 44.6 fL (36.4-46.3); Red Blood Count 3.61 M/uL (4.70-6.10); White Blood Count 4.82 K/ul (4.8-10.8)
[2024-11-12 07:39] LABS: Calcium 8.8 mg/dl (8.6-10.3); Creatinine Clr Calc Pharmacy 36.8 ml/min; Potassium 4.7 mmol/L (3.5-5.1)
--- NOTE | 2024-11-12 08:43 | Nephrology Progress Note ---
Date of Service November 12, 2024 Assessment & Plan (1) TYESHA (acute kidney injury): Plan: * Contrast-induced nephropathy/ATN -patient is now in recovery phase * Patient is nonoliguric * Clinically euvolemic, electrolyte balance is acceptable * Kidney function has recovered (baseline creatinine 2.0) * Monitor daily BMP, UO (2) Chronic kidney disease: Plan: * CKD stage G3/A3 (moderate impairment). Baseline creatinine 2.0. UACR 2.4. CKD attributed to DM, HTN * Primary tag writer is Dr. Jeffrey * 11/18 kappa lambda light chain ratio within normal limits (3) Normocytic anemia: Plan: * Hematology has been consulted. * s/p transfusion 11/08/24 * If hematologic evaluation is unrevealing, consider whether leflunomide may be contributing to anemia (4) Hypertension: Plan: * BP remains mildly elevated * Continue carvedilol, hydralazine, amlodipine * Will reintroduce valsartan at 40 mg once daily * If kidney function remains stable consider titrating valsartan back to outpatient dosage (5) BPH (benign prostatic hyperplasia): Plan: * Performs CIC at home 2-3x/day * Continue CIC as Rx once [place] removed * Outpatient urology evaluation scheduled * Continue finasteride and tamsulosin per home Rx * PSA <0.1. Admission and Anticipated Discharge Date Admission Date: November 06, 2024 Subjective Mr. Yepez was evaluated in his hospital room this morning. He was A&O x3. He voiced no medical concerns. Review of Systems Constitutional: no fever Eyes: no problem reported Ear, Nose, Mouth, Throat: no problem reported Respiratory: no cough and no dyspnea Cardiovascular: no chest pain and no dyspnea Gastrointestinal: no abdominal pain, no nausea, no vomiting and no diarrhea/loose stools Genitourinary: no urinary hesitancy or no hematuria Physical Exam Constitutional: not in distress Eyes: PERRL, conjunctivae normal, anicteric sclerae ENMT: external ear and nose normal, oropharynx normal Neck: trachea midline, no thyromegaly Respiratory: normal respiratory effort, lungs clear to auscultation Cardiovascular: Rate/Rhythm: regular rate and regular rhythm Heart Sounds: + murmur (Aortic outflow murmur) Extremities: no edema Gastrointestinal (Abdomen): normal bowel sounds, soft, nontender, no hepatosplenomegaly Musculoskeletal: Extremities: no cyanosis and no clubbing Skin: no rashes, warm and dry Neurologic: awake; not confused Results & Data Vital Signs (Past 12 Hours) Vital Signs Temp Pulse Pulse Resp BP BP Pulse Ox 11/12/24 07:55 36.3 C L 66 14 161/82 H 95 11/12/24 03:09 36.8 C 68 16 144/63 H 92 11/11/24 22:47 36.7 C 70 16 176/86 H 93 11/11/24 22:00 73 11/11/24 21:16 193/89 H O2 Del Method 11/12/24 07:55 Room Air 11/12/24 03:09 Room Air 11/11/24 22:47 Room Air 11/11/24 22:00 11/11/24 21:16 Laboratory Results Laboratory Results - last 24 hr 11/11/24 11/11/24 11/11/24 06:00 11:50 17:56 WBC RBC Hgb Hct MCV MCH MCHC RDW Std Deviation RDW Coeff of Jaziel Plt Count MPV Sodium 135 L Potassium 4.4 Chloride 103 Carbon Dioxide 24 Anion Gap 8 BUN 49 H Creatinine 2.38 H D Est Cr Clr Drug Dosing 28.6 eGFR 26.88 BUN/Creatinine Ratio 20.6 H Glucose 96 POC Glucose 149 H 155 H Calcium 8.7 11/11/24 11/12/24 11/12/24 20:05 06:24 07:53 WBC 4.82 RBC 3.61 L Hgb 10.0 L Hct 31.3 L MCV 86.7 MCH 27.7 MCHC 31.9 L RDW Std Deviation 44.6 RDW Coeff of Jaziel 14.0 Plt Count 319 MPV 8.5 L Sodium 134 L Potassium 4.7 Chloride 103 Carbon Dioxide 25 Anion Gap 6 BUN 47 H Creatinine 1.81 H D Est Cr Clr Drug Dosing 36.8 eGFR 37.33 BUN/Creatinine Ratio 26.0 H Glucose 120 H POC Glucose 163 H 111 H Calcium 8.8 PG Care Time/CCT Total # of Minutes Spent Total Time Spent with Patient: Total time spent is greater than 50% in coordination of care (as documented) at patient's floor/unit and/or counseling patient: Coding Level of Care Code 14990 SUB INP/OBS CARE 3/50MIN Diagnoses TYESHA (acute kidney injury) N17.9 Chronic kidney disease N18.9 Normocytic anemia D64.9 Primary hypertension I10 Hypertension type: primary hypertension BPH (benign prostatic hyperplasia) N40.0 (4) Hypertension Hypertension type: primary hypertension Qualified Code(s): I10 - Essential (primary) hypertension
--- NOTE | 2024-11-12 11:41 | History & Physical Report ---
Date of Service November 11, 2024 Assessment & Plan (1) Anemia: Plan: Anemia probably multifactorial. However there is no clear evidence that this would be a gastrointestinal source this is based on the fact he is heme- negative. He has not seen melena or hematochezia. He is not iron deficient. So rather than a blood loss problem I believe this is a production problem. Reviewed this with the patient. We defer to nephrology and hematology in regards to further workup. Patient can follow-up with his usual gastroenterology at discharge may be due for a colonoscopy in the next year or so. GI signed off reconsult as needed Admission and Anticipated Discharge Date Admission Date: November 06, 2024 History of Present Illness Primary Care Provider: Jhonatan Castillo Allergies Allergy/AdvReac Type Severity Reaction Status Date / Time cashew nut Allergy Unknown Unknown Verified 11/06/24 23:11 Penicillins Allergy Unknown Unknown Verified 11/06/24 23:11 Home Medications Medication Instructions Recorded Confirmed Type amitriptyline 100 mg tablet 100 mg PO HS 01/18/24 11/06/24 History aspirin 81 mg tablet,delayed 81 mg PO DAILY 01/18/24 11/06/24 History release blood-glucose meter (OneTouch 01/18/24 03/27/24 History Verio Flex Meter) carvedilol 25 mg tablet 25 mg PO BID 01/18/24 11/06/24 History cholecalciferol (vitamin D3) 25 25 mcg PO DAILY 01/18/24 11/06/24 History mcg (1,000 unit) capsule coenzyme Q10 200 mg capsule 200 mg PO DAILY 01/18/24 11/06/24 History (Q-Sorb Co Q-10) donepezil 5 mg tablet (Aricept) 5 mg PO HS 01/18/24 11/06/24 History fenofibrate 160 mg tablet 160 mg PO DAILY 01/18/24 11/06/24 History finasteride 5 mg tablet 5 mg PO DAILY 01/18/24 11/06/24 History krill 350 mg-omega-3 90 mg-dha 24 1 cap PO BID 01/18/24 11/06/24 History mg-epa 50 qx-ragzzfv-utupb capsule (MegaRed [place]-3 Krill Oil) leflunomide 20 mg tablet 20 mg PO HS 01/18/24 11/06/24 History gftndken-vuupwfqt-pzkpz acid 400 1 tab PO DAILY 01/18/24 11/06/24 History mcg-vit K 20 mcg-lycop 300 mcg tablet nitroglycerin 0.4 mg sublingual 0.4 mg sublingual Q5M PRN Chest 01/18/24 11/06/24 History tablet Pain pen needle, diabetic 33 gauge x #100 ea 01/18/24 03/27/24 Rx /" tamsulosin 0.4 mg capsule 0.4 mg PO HS 01/18/24 11/06/24 History terazosin 10 mg capsule 10 mg PO HS 01/18/24 11/06/24 History trazodone 100 mg tablet 100 mg PO HS 01/18/24 11/06/24 History valsartan 320 mg tablet 320 mg PO DAILY 01/18/24 11/06/24 History vitamin B comp and C no.3 15 mg-10 1 cap PO DAILY 01/18/24 11/06/24 History mg-50 mg-5 mg-300 mg capsule (B Complex Plus Vitamin C) blood sugar diagnostic (OneTouch #400 ea 01/27/24 03/27/24 Rx Verio test strips) FreeStyle [place] 3 Sensor #6 ea 04/10/24 Rx (blood-glucose sensor) amlodipine 10 mg tablet 10 mg PO BID 09/20/24 11/06/24 History ascorbic acid (vitamin C) 500 mg 500 mg PO DAILY 09/20/24 11/06/24 History capsule atorvastatin 40 mg tablet 20 mg PO DAILY 09/20/24 11/06/24 History gabapentin 400 mg capsule 400 mg PO BID 09/20/24 11/06/24 History hydralazine 10 mg tablet 10 mg PO TID #90 tabs 09/20/24 11/06/24 Rx isosorbide mononitrate 60 mg 30 mg PO HS 09/20/24 11/06/24 History tablet,extended release 24 hr magnesium 200 mg tablet 400 mg PO DAILY 09/20/24 11/06/24 History methenamine hippurate 1 gram tablet 1 g PO BID 09/20/24 11/06/24 History omeprazole 20 mg capsule,delayed 60 mg PO HS 09/20/24 11/06/24 History release pramipexole 0.125 mg tablet 0.125 mg PO HS 09/20/24 11/06/24 History primidone 50 mg tablet 150 mg PO HS 09/20/24 11/06/24 History semaglutide 2 mg/dose (8 mg/3 mL) 0.25 mg subcut .weekly 09/20/24 11/06/24 History subcutaneous pen injector Past Med/Surg History Problem List (Updated 11/08/24 @ 10:19 by Zion Colunga DO) Encephalopathy TYESHA (acute kidney injury) Polyarthritis Anemia Chronic kidney disease Right buttock pain Elevated serum creatinine Shortness of breath Normocytic anemia Claudication Ambulatory dysfunction (Acute) Elevated brain natriuretic peptide (BNP) level (Acute) Generalized weakness (Acute) Recurrent falls (Acute) Stented coronary artery Mitral regurgitation CAD (coronary artery disease) Diabetic nephropathy Type 2 diabetes mellitus Urinary symptom or sign Hypercholesterolemia Hypertension Diabetes Arthritis BPH (benign prostatic hyperplasia) Dysuria Medical History (Updated 11/08/24 @ 10:19 by Zion Colunga DO) Peripheral artery disease Urinary symptom or sign Heart trouble Surgical History (Updated 09/20/24 @ 15:06 by Ananda Gamez MD) History of prostate surgery H/O discectomy History of mastectomy Family History Mother Diabetes Heart disease Hypertension Father Heart disease Hypertension Social History Smoking Status: Former smoker Tobacco Type: Cigarettes Hx Alcohol Use: Yes Alcohol type: beer and wine Hx Substance Use: No Preferred Language: Faroese Communication Ability: Effective 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 Beliefs That Will Affect Care: None marital status: Current Living Situation: Spouse current occupational status: retired Other Information That Helps Us Care for You: No Feels Safe at Home: Yes Safety Concerns: Feels Safe At This Time Assistive Devices: None Assistive Devices Comment: Hearing aids, walker Review of Systems Patient denies fevers chills or abdominal pain Respiratory no increased cough cardiovascular currently denies any chest pain GI as mentioned history present illness Review of systems otherwise negative Physical Exam Physical Exam: Patient was sitting at the edge of the bed. He did not a peer in any acute distress. He could talk in full sentences. The eyes did not reveal any jaundice Chest and heart exams per primary service. Abdominal examination benign. No guarding rebound. 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
[2024-11-12] MEDS: VALSARTAN 80 MG TAB PO SCH (11:44)
--- NOTE | 2024-11-12 12:06 | Hospitalist Progress Note ---
Date of Service November 12, 2024 Assessment & Plan (1) Recurrent falls: Plan: PT/OT - to d/c back to rehab (2) Shortness of breath: Plan: Was related to anemia symptoms resolved (3) Right buttock pain: Plan: Secondary to fall from yesterday No fracture (4) Elevated serum creatinine: Plan: h/o of CKD nephrology consult appreciated cr stable at 1.8 today possible ATN from recent IV contrast hold ARB (5) Normocytic anemia: Plan: Unknown baseline but recently needing blood transfusions, patient unaware of why he is anemic Iron studies, B12, folate, LDH, retic count No melena Heme-onc consult appreciated La test pedning heme improved to 10.0 today transfused 2 units f/u work up, possible BM suppression stool occult negative GI consult appreciated, no need for endoscopy at this time Heme-onc reconsulted to further recommend bone marrow biopsy (6) Hypertension: Plan: Continue his usual regimen with carvedilol, amlodipine, ISMN (7) Claudication: Plan: Noted claudication in calves without relief from recent peripheral artery procedure, suspect neurogenic although he reports normal recent NCS/EMG testing in the last 6 months Request outside records (8) Peripheral artery disease: Plan: aspirin, atorvastatin (9) BPH (benign prostatic hyperplasia): Plan: Straight cath TID Continue terazosin Continue finasteride (10) Diabetes: Plan: HbA1C in AM On Ozempic outpatient NovoLog for correction factor only, will add basal coverage if needing this frequently (11) Generalized weakness: Plan: PT evaluation recommending rehab. Plan Pt is an 79 year old male with PMH of hypertension, coronary artery disease, TRISH, DMII, BP, polyarthritis, essential tremor, RLS, anemia, and chronic kidney disease who presented with shortness of breath on exertion, increasing weakness, and recurrent falls. He was found to have symptomatic anemia with heme of 6.6, transfused 2units PRBC, TYESHA 2nd to ATN from contrast nephropathy, now with improved heme of 10.0 and cr normalized to 1.8. Pt awaiting discharge to rehab once anemia work up completed with possible bone marrow biopsy if indicated by heme-onc and cr normalized. Admission and Anticipated Discharge Date Admission Date: November 06, 2024 Subjective No events overnight. Pt resting comfortably in bed. Review of Systems Review of Systems: CONST: Negative for fever, body aches and chills. HENT: Negative for neck pain/stiffness, headache, congestion, sore throat, swelling. EYES: Negative for discharge/pain or vision changes. RESP: Negative for cough/hemoptysis and shortness of breath. CV: Negative chest pain, difficulty breathing, palpitations. ABD: Negative pain, nausea, vomiting. : Negative increase frequency, dysuria, blood in urine or stool. MUSC: Negative for muscle aches, edema. SKIN: Negative rash, lesions/sores. NEURO: Negative headache, dizziness, weakness. Physical Exam Physical Exam: GENERAL APPEARANCE NAD, activity normal for age, well developed/ well nourished, no cyanosis, pallor, or diaphoresis. EYES lids/conjunctiva normal. EARS/NOSE/THROAT Mucous membranes moist, nares normal, lips/teeth normal uvula midline without oral pharyngeal erythema, exudate or swelling TMs normal bilaterally. No lymphangitis/lymphedema. HEAD/NECK normocephalic atraumatic, no facial trauma, neck is supple. RESPIRATORY respiratory effort normal, speaks in full sentences, no tripod position, no accessory muscle use. Lungs clear to auscultation without rhonchi, wheezes, rales CARDIAC Regular rate and rhythm, no edema. ABDOMINAL Soft, ND/NT. No evidence of fluid wave. No pulsatile masses on exam, rebound tenderness, Ceja sign or pain over Mcburney's point. MUSCLES/EXTREMITIES No abnormal range of motion, no swelling. SKIN Warm, pink and dry. No rashes, dermatoses, petechiae or lesions. NEUROLOGICAL Speech is clear and appropriate. Normal level of consciousness. Gait and coordination are normal. 5/5 strength in all extremities. PSYCH Normal mood and affect. Judgement/competence is appropriate Results & Data Results & Data Vital Signs (Past 12 Hours) Vital Signs Temp Pulse Pulse Resp BP Pulse Ox O2 Del Method 11/12/24 11:53 36.3 C L 67 20 165/82 H 93 Room Air 11/12/24 08:00 66 11/12/24 07:55 36.3 C L 66 14 161/82 H 95 Room Air 11/12/24 03:09 36.8 C 68 16 144/63 H 92 Room Air PG Care Time/CCT Total # of Minutes Spent Total Time Spent with Patient: Total time spent is greater than 50% in coordination of care (as documented) at patient's floor/unit and/or counseling patient: Coding Level of Care Code 36802 SUB INP/OBS CARE 235MIN Diagnoses Recurrent falls R29.6 Shortness of breath R06.02 Right buttock pain M79.18 Elevated serum creatinine R79.89 Normocytic anemia D64.9 Primary hypertension I10 Hypertension type: primary hypertension Claudication I73.9 Peripheral artery disease I73.9 BPH (benign prostatic hyperplasia) N40.0 Diabetes E11.9 Generalized weakness R53.1 (6) Hypertension Hypertension type: primary hypertension Qualified Code(s): I10 - Essential (primary) hypertension
--- NOTE | 2024-11-12 13:52 | Hospitalist Progress Note ---
Date of Service November 12, 2024 Assessment & Plan (1) Anemia: Plan: Workup done till date reviewed, reticulocyte count is not depressed which means there is an adequate bone marrow reserve. He does not need a bone marrow biopsy. In my opinion he will need an outpatient GI workup. His hemoglobin has stabilized between 10 to 11 g/dL. At this point no further intervention is needed from a hematology standpoint. This may very well be anemia of chronic di sease given his multiple comorbidities and chronic kidney disease. Rest of the workup did not find any other correctable cause for anemia including B12 deficiency, iron deficiency or concerns for hemolysis. As mentioned the patient does not need a bone marrow biopsy during this admission can be discharged to rehab. Plan Thank you for this interesting hematology consult.. Hematology will continue to follow the patient make appropriate recommendations. Admission and Anticipated Discharge Date Admission Date: November 06, 2024 Subjective Currently no new symptoms, no fever chills or night sweats. he is awaiting placement Review of Systems Review of Systems: All systems reviewed & are unremarkable except as noted in HPI & below Constitutional: as per Subjective / HPI Eyes: as per Subjective / HPI Ear, Nose, Mouth, Throat: as per Subjective / HPI Respiratory: as per Subjective / HPI Cardiovascular: as per Subjective / HPI Gastrointestinal: as per Subjective / HPI Genitourinary: + as per Subjective / HPI Musculoskeletal: as per Subjective / HPI Integumentary: as per Subjective / HPI Neurologic: as per Subjective / HPI Psychiatric: as per Subjective / HPI Physical Exam Constitutional: WD/WN, vitals as above Eyes: PERRL, conjunctivae normal, anicteric sclerae ENMT: external ear and nose normal, oropharynx normal Neck: trachea midline, no thyromegaly Respiratory: normal respiratory effort, lungs clear to auscultation Cardiovascular: RRR, no murmur, no edema Gastrointestinal (Abdomen): normal bowel sounds, soft, nontender, no hepato splenomegaly Musculoskeletal: no cyanosis or clubbing, extremities motor strength 5/5 Skin: no rashes, warm and dry Neurologic: patellar DTR's 2+ bilat, sensation intact Psychiatric: A+Ox3, euthymic affect Results & Data Results & Data Vital Signs (Past 12 Hours) Vital Signs Temp Pulse Pulse Resp BP Pulse Ox O2 Del Method 11/12/24 11:53 36.3 C L 67 20 165/82 H 93 Room Air 11/12/24 08:00 66 11/12/24 07:55 36.3 C L 66 14 161/82 H 95 Room Air 11/12/24 03:09 36.8 C 68 16 144/63 H 92 Room Air
[2024-11-12] MEDS: hydrALAZINE HCL 20 MG/ML VIAL IV PRN (17:53)
[2024-11-13 05:03] LABS: Hematocrit (blood only) 30.6 % (42.0-52.0); Hemoglobin 10.1 g/dl (14.0-18.0); Mean Corpuscular Hemoglobin 28.1 pg (25.0-34.0); Mean Corpuscular Volume 85.2 fL (80.0-100.0); Mean Platelet Volume 8.6 fL (9.4-12.4); Platelet Count 354 K/uL (130-400); RDW Coefficient of Variation 14.1 % (11.5-14.5); RDW Standard Deviation 43.9 fL (36.4-46.3); Red Blood Count 3.59 M/uL (4.70-6.10); White Blood Count 7.23 K/ul (4.8-10.8)
[2024-11-13 05:15] LABS: BUN Creatinine Ratio 22.9 (10-20); Calcium 9.1 mg/dl (8.6-10.3); Creatinine Clr Calc Pharmacy 34.7 ml/min; Potassium 4.7 mmol/L (3.5-5.1)
--- NOTE | 2024-11-13 08:48 | Nephrology Progress Note ---
Date of Service November 13, 2024 Assessment & Plan (1) TYESHA (acute kidney injury): Plan: * Contrast-induced nephropathy/ATN -patient is now in recovery phase * Patient is nonoliguric * Clinically euvolemic, electrolyte balance is acceptable * Kidney function has recovered (baseline creatinine 2.0) * Monitor daily BMP, UO (2) Chronic kidney disease: Plan: * CKD stage G3/A3 (moderate impairment). Baseline creatinine 2.0. UACR 2.4. CKD attributed to DM, HTN * Primary bandage maker is Dr. Jeffrey - will need outpatient f/u with Dr. Jeffrey following discharge * 11/18 kappa lambda light chain ratio within normal limits (3) Normocytic anemia: Plan: * Hematology has been consulted. * s/p transfusion 11/08/24 * If hematologic evaluation is unrevealing, consider whether leflunomide may be contributing to anemia (4) Hypertension: Plan: * BP remains mildly elevated * Continue carvedilol, hydralazine, amlodipine * Will increase valsartan to 80 mg once daily (5) BPH (benign prostatic hyperplasia): Plan: * Performs CIC at home 2-3x/day * Continue CIC as Rx once Greenwood removed * Outpatient urology evaluation scheduled * Continue finasteride and tamsulosin per home Rx * PSA <0.1. Admission and Anticipated Discharge Date Admission Date: November 06, 2024 Subjective Mr. Yepez was evaluated in his hospital room this morning. He was A&O x3. He is anxious to return home but feels that he needs in center stay at the [facility] for PT before his spouse can care for him. Review of Systems Constitutional: no fever Eyes: no problem reported Ear, Nose, Mouth, Throat: no problem reported Respiratory: no cough and no dyspnea Cardiovascular: no chest pain and no dyspnea Gastrointestinal: no abdominal pain, no nausea, no vomiting and no diarrhea/loose stools Genitourinary: no urinary hesitancy or no hematuria Physical Exam Constitutional: not in distress Eyes: PERRL, conjunctivae normal, anicteric sclerae ENMT: external ear and nose normal, oropharynx normal Neck: trachea midline, no thyromegaly Respiratory: normal respiratory effort, lungs clear to auscultation Cardiovascular: Rate/Rhythm: regular rate and regular rhythm Heart Sounds: + murmur (Aortic outflow murmur) Extremities: no edema Gastrointestinal (Abdomen): normal bowel sounds, soft, nontender, no hepatosplenomegaly Musculoskeletal: Extremities: no cyanosis and no clubbing Skin: no rashes, warm and dry Neurologic: awake; not confused Results & Data Vital Signs (Past 12 Hours) Vital Signs Temp Pulse Pulse Resp BP Pulse Ox O2 Del Method 11/13/24 08:00 74 11/13/24 07:43 36.4 C L 71 18 161/76 H 92 Room Air 11/13/24 02:42 36.5 C 78 18 154/72 H 94 Room Air 11/12/24 22:45 36.7 C 82 18 168/65 H 92 Room Air Laboratory Results Laboratory Results - last 24 hr 11/12/24 11/12/24 11/12/24 11:46 15:37 20:08 WBC RBC Hgb Hct MCV MCH MCHC RDW Std Deviation RDW Coeff of Jaziel Plt Count MPV Sodium Potassium Chloride Carbon Dioxide Anion Gap BUN Creatinine Est Cr Clr Drug Dosing eGFR BUN/Creatinine Ratio Glucose POC Glucose 146 H 152 H 143 H Calcium 11/13/24 11/13/24 04:16 07:41 WBC 7.23 RBC 3.59 L Hgb 10.1 L Hct 30.6 L MCV 85.2 MCH 28.1 MCHC 33.0 RDW Std Deviation 43.9 RDW Coeff of Jaziel 14.1 Plt Count 354 MPV 8.6 L Sodium 133 L Potassium 4.7 Chloride 104 Carbon Dioxide 23 Anion Gap 6 BUN 44 H Creatinine 1.92 H Est Cr Clr Drug Dosing 34.7 eGFR 34.78 BUN/Creatinine Ratio 22.9 H Glucose 138 H POC Glucose 118 H Calcium 9.1 PG Care Time/CCT Total # of Minutes Spent Total Time Spent with Patient: Total time spent is greater than 50% in coordination of care (as documented) at patient's floor/unit and/or counseling patient: Coding Level of Care Code 46008 SUB INP/OBS CARE 3/50MIN Diagnoses TYESHA (acute kidney injury) N17.9 Chronic kidney disease N18.9 Normocytic anemia D64.9 Primary hypertension I10 Hypertension type: primary hypertension BPH (benign prostatic hyperplasia) N40.0 (4) Hypertension Hypertension type: primary hypertension Qualified Code(s): I10 - Essential (primary) hypertension
[2024-11-13] MEDS: VALSARTAN 80 MG TAB PO STA (09:54)
--- NOTE | 2024-11-13 20:51 | Hospitalist Progress Note ---
Date of Service November 13, 2024 Assessment & Plan (1) Recurrent falls: Plan: PT/OT - to d/c back to rehab reviewed chart from previous provider's notes discussed woth case management (2) Shortness of breath: Plan: Was related to anemia symptoms resolved (3) Right buttock pain: Plan: Secondary to fall from yesterday No fracture (4) Elevated serum creatinine: Plan: h/o of CKD nephrology consult appreciated cr stable at 1.9 today/baseline 2 possible ATN from recent IV contrast hold ARB (5) Normocytic anemia: Plan: Unknown baseline but recently needing blood transfusions, patient unaware of why he is anemic Iron studies, B12, folate, LDH, retic count No melena Heme-onc consult appreciated La test pedning heme improved to 10.1 today transfused 2 units f/u work up, possible BM suppression stool occult negative GI consult appreciated, no need for endoscopy at this time Heme-onc reconsulted to further recommend bone marrow biopsy (6) Hypertension: Plan: Continue his usual regimen with carvedilol, amlodipine, ISMN (7) Claudication: Plan: Noted claudication in calves without relief from recent peripheral artery procedure, suspect neurogenic although he reports normal recent NCS/EMG testing in the last 6 months Request outside records (8) Peripheral artery disease: Plan: aspirin, atorvastatin (9) BPH (benign prostatic hyperplasia): Plan: Straight cath TID Continue terazosin Continue finasteride (10) Diabetes: Plan: HbA1C in AM On Ozempic outpatient NovoLog for correction factor only, will add basal coverage if needing this frequently (11) Generalized weakness: Plan: PT evaluation recommending rehab. Plan Pt is an 79 year old male with PMH of hypertension, coronary artery disease, TRISH, DMII, BP, polyarthritis, essential tremor, RLS, anemia, and chronic kidney disease who presented with shortness of breath on exertion, increasing weakness, and recurrent falls. He was found to have symptomatic anemia with heme of 6.6, transfused 2units PRBC, TYESHA 2nd to ATN from contrast nephropathy, now with improved heme of 10.1 and cr normalized to 1.9. Pt awaiting discharge to rehab once anemia work up completed with possible bone marrow biopsy if indicated by heme-onc and cr normalized. Admission and Anticipated Discharge Date Admission Date: November 06, 2024 Subjective Patient reports no new symptoms. Physical Exam Physical Exam: GENERAL APPEARANCE NAD EYES lids/conjunctiva normal. HEAD/NECK normocephalic atraumatic, no facial trauma, neck is supple. RESPIRATORY respiratory effort normal, speaks in full sentences CARDIAC Regular rate and rhythm, no edema. ABDOMINAL Soft, ND/NT MUSCLES/EXTREMITIES No abnormal range of motion, no swelling. SKIN Warm, pink and dry. No rashes, dermatoses, petechiae or lesions. NEUROLOGICAL Speech is clear and appropriate. Results & Data Results & Data Vital Signs (Past 12 Hours) Vital Signs Temp Pulse Pulse Resp BP BP Pulse Ox 11/13/24 19:31 77 206/101 H 11/13/24 19:15 36.5 C 78 18 202/100 H 95 11/13/24 16:16 36.8 C 79 19 201/101 H 96 11/13/24 14:34 70 11/13/24 11:59 36.3 C L 75 20 166/68 H 94 O2 Del Method 11/13/24 19:31 11/13/24 19:15 Room Air 11/13/24 16:16 Room Air 11/13/24 14:34 11/13/24 11:59 Room Air PG Care Time/CCT Total # of Minutes Spent Total Time Spent with Patient: Total time spent is greater than 50% in coordination of care (as documented) at patient's floor/unit and/or counseling patient: Coding Level of Care Code 83691 SUB INP/OBS CARE 3/50MIN Diagnoses Recurrent falls R29.6 Shortness of breath R06.02 Right buttock pain M79.18 Elevated serum creatinine R79.89 Normocytic anemia D64.9 Primary hypertension I10 Hypertension type: primary hypertension Claudication I73.9 Peripheral artery disease I73.9 BPH (benign prostatic hyperplasia) N40.0 Diabetes E11.9 Generalized weakness R53.1 (6) Hypertension Hypertension type: primary hypertension Qualified Code(s): I10 - Essential (primary) hypertension
[2024-11-14 06:19] LABS: BUN Creatinine Ratio 21.8 (10-20); Calcium 9.3 mg/dl (8.6-10.3); Hematocrit (blood only) 30.2 % (42.0-52.0); Mean Corpuscular Hemoglobin 28.2 pg (25.0-34.0); Mean Corpuscular Hgb Conc 33.1 g/dL (32.0-36.0); Mean Corpuscular Volume 85.1 fL (80.0-100.0); Mean Platelet Volume 8.5 fL (9.4-12.4); Platelet Count 335 K/uL (130-400); Potassium 4.7 mmol/L (3.5-5.1); RDW Coefficient of Variation 14.3 % (11.5-14.5); RDW Standard Deviation 44.7 fL (36.4-46.3); Red Blood Count 3.55 M/uL (4.70-6.10); White Blood Count 6.94 K/ul (4.8-10.8)
[2024-11-14 07:43] VITALS: RESP 20
[2024-11-14] MEDS: VALSARTAN 80 MG TAB PO SCH (07:55)
--- NOTE | 2024-11-14 08:39 | Nephrology Progress Note ---
Date of Service November 14, 2024 Assessment & Plan (1) TYESHA (acute kidney injury): Plan: * Resolved. Patient had likely suffered contrast-induced nephropathy/ATN * No further nephrology recommendations at this time. Will sign off. Please call if further assistance is needed (2) Chronic kidney disease: Plan: * CKD stage G3/A3 (moderate impairment). Baseline creatinine 2.0. UACR 2.4. CKD attributed to DM, HTN * Primary safe expert is Dr. Jeffrey - will need outpatient f/u with Dr. Jeffrey following discharge * 11/18 kappa lambda light chain ratio within normal limits (3) Normocytic anemia: Plan: * Hematology has been consulted. * s/p transfusion 11/08/24 * If hematologic evaluation is unrevealing, consider whether leflunomide may be contributing to anemia (4) Hypertension: Plan: * BP remains mildly elevated * Continue carvedilol, hydralazine, amlodipine * Continue valsartan to 80 mg once daily (5) BPH (benign prostatic hyperplasia): Plan: * Performs CIC at home 2-3x/day * Continue CIC as Rx once [place] removed * Outpatient urology evaluation scheduled * Continue finasteride and tamsulosin per home Rx * PSA <0.1. Admission and Anticipated Discharge Date Admission Date: November 06, 2024 Subjective Mr. Yepez was evaluated in his hospital room this morning. He voiced no new medical concerns but notes that he remains weak and will need PT before returning home to [facility] Review of Systems Constitutional: no fever Eyes: no problem reported Ear, Nose, Mouth, Throat: no problem reported Respiratory: no cough and no dyspnea Cardiovascular: no chest pain and no dyspnea Gastrointestinal: no abdominal pain, no nausea, no vomiting and no diarrhea/loose stools Genitourinary: no urinary hesitancy or no hematuria Physical Exam Constitutional: not in distress Eyes: PERRL, conjunctivae normal, anicteric sclerae ENMT: external ear and nose normal, oropharynx normal Neck: trachea midline, no thyromegaly Respiratory: normal respiratory effort, lungs clear to auscultation Cardiovascular: Rate/Rhythm: regular rate and regular rhythm Heart Sounds: + murmur (Aortic outflow murmur) Extremities: no edema Gastrointestinal (Abdomen): normal bowel sounds, soft, nontender, no hepatosplenomegaly Musculoskeletal: Extremities: no cyanosis and no clubbing Skin: no rashes, warm and dry Neurologic: awake; not confused Results & Data Vital Signs (Past 12 Hours) Vital Signs Temp Pulse Pulse Resp BP Pulse Ox O2 Del Method 11/14/24 07:43 36.4 C L 75 20 154/77 H 92 Room Air 11/14/24 02:37 36.6 C 74 18 157/72 H 93 Room Air 11/13/24 22:52 36.7 C 79 18 177/73 H 95 Room Air 11/13/24 21:46 77 11/13/24 21:30 188/82 H Laboratory Results Laboratory Results - last 24 hr 11/10/24 11/13/24 11/13/24 11:35 11:54 16:39 WBC RBC Hgb Hct MCV MCH MCHC RDW Std Deviation RDW Coeff of Jaziel Plt Count MPV Sodium Potassium Chloride Carbon Dioxide Anion Gap BUN Creatinine Est Cr Clr Drug Dosing eGFR BUN/Creatinine Ratio Glucose POC Glucose 233 H 125 H Calcium RBC Folate 927 11/13/24 11/14/24 11/14/24 20:19 05:38 07:40 WBC 6.94 RBC 3.55 L Hgb 10.0 L Hct 30.2 L MCV 85.1 MCH 28.2 MCHC 33.1 RDW Std Deviation 44.7 RDW Coeff of Jaziel 14.3 Plt Count 335 MPV 8.5 L Sodium 134 L Potassium 4.7 Chloride 104 Carbon Dioxide 21 Anion Gap 9 BUN 44 H Creatinine 2.02 H Est Cr Clr Drug Dosing 33.0 eGFR 32.73 BUN/Creatinine Ratio 21.8 H Glucose 120 H POC Glucose 170 H 119 H Calcium 9.3 RBC Folate PG Care Time/CCT Total # of Minutes Spent Total Time Spent with Patient: Total time spent is greater than 50% in coordination of care (as documented) at patient's floor/unit and/or counseling patient: Coding Level of Care Code 17897 SUB INP/OBS CARE 3/50MIN Diagnoses TYESHA (acute kidney injury) N17.9 Chronic kidney disease N18.9 Normocytic anemia D64.9 Primary hypertension I10 Hypertension type: primary hypertension BPH (benign prostatic hyperplasia) N40.0 (4) Hypertension Hypertension type: primary hypertension Qualified Code(s): I10 - Essential (primary) hypertension
[2024-11-14 11:25] VITALS: BP 150/77; TEMP 98.3; O2SAT 95
--- NOTE | 2024-11-14 13:16 | Discharge Summary ---
Discharge Summary Date of Service November 14, 2024 Principal Dx & Hospital Course #1 = Principal Diagnosis (1) Recurrent falls: PT/OT - to d/c back to rehab reviewed chart from previous provider's notes discussed woth case management (2) Shortness of breath: Was related to anemia symptoms resolved (3) Right buttock pain: Secondary to fall from yesterday No fracture (4) Elevated serum creatinine: h/o of CKD nephrology consult appreciated cr stable at 1.9 today/baseline 2 possible ATN from recent IV contrast hold ARB (5) Normocytic anemia: Unknown baseline but recently needing blood transfusions, patient unaware of why he is anemic Iron studies, B12, folate, LDH, retic count No melena Heme-onc consult appreciated La test pedning heme improved to 10.1 today transfused 2 units f/u work up, possible BM suppression stool occult negative GI consult appreciated, no need for endoscopy at this time Heme-onc reconsulted to further recommend bone marrow biopsy (6) Hypertension: Continue his usual regimen with carvedilol, amlodipine, ISMN (7) Claudication: Noted claudication in calves without relief from recent peripheral artery procedure, suspect neurogenic although he reports normal recent NCS/EMG testing in the last 6 months Request outside records (8) Peripheral artery disease: aspirin, atorvastatin (9) BPH (benign prostatic hyperplasia): Straight cath TID Continue terazosin Continue finasteride (10) Diabetes: HbA1C in AM On Ozempic outpatient NovoLog for correction factor only, will add basal coverage if needing this frequently (11) Generalized weakness: PT evaluation recommending rehab. Plan Pt is an 79 year old male with PMH of hypertension, coronary artery disease, TRISH, DMII, BP, polyarthritis, essential tremor, RLS, anemia, and chronic kidney disease who presented with shortness of breath on exertion, increasing weakness, and recurrent falls. He was found to have symptomatic anemia with heme of 6.6, transfused 2units PRBC, TYESHA 2nd to ATN from contrast nephropathy, now with improved heme of 10.1 and cr normalized to 1.9. Pt awaiting discharge to rehab once anemia work up completed with possible bone marrow biopsy if indicated by heme-onc and cr normalized. Admission HPI Per Admitting Provider -year-old gentleman admitted with worsening renal function potentially contrast related. We do not have a baseline hemoglobin though he did drop his hemoglobin below 7 requiring transfusion. Hemoglobin was 9 on admission. He has been seen by both hematology and nephrology. There were some increased protein in her urine and light change though the serum protein electrophoresis does not suggest monoclonal gammopathy Patient and he denies allison melena hematochezia or hematemesis he denies heartburn indigestion. He denies any recent bowel change. Only blood thinners aspirin by his report. Patient tells me he has had previous colonoscopies in the past his last one was within the last 5 years. He states a small polyp was removed and told to return in 5 years. Patient is not iron deficient. Stools recently returned heme-negative. Discharge Plan Discharge Items Patient Disposition: Transfer Nursing Home Fac Reason For Visit: RECURRENT FALLS Discharge Diagnosis: recurrent falls Activity: Resume your previous activity Non-emergency contact: Primary Care Provider Call non-emergency contact if: you have any medication questions Follow-up/Referrals: Jhonatan Castillo, CHARISSE [Primary Care Provider] - Diet: Carb Consistent or DM2, Heart Healthy and Low Sodium (2gm) Addtl Attending Provider Instructions: Primary order entry representative is Dr. Jeffrey - will need outpatient f/u with Dr. Jeffrey following discharge You will be discharged to rehab and hopefully this will prevent any further episodes. Recommend close followup with PCP to discuss possible medicaton chnages. We cut back on a few of your medications as these could have played a role in your falls. We cut back on your valsartan and gabapentin. We also held your fenofibrate and you appear to be doing well with these changes. Pending Studies at Discharge: No Stand-Alone Forms: My [facility] Skilled Items Patient informed of condition?: Yes DNR: No Discharge Level of Care: Skilled Communicable Disease: No Discharge Prognosis: Stable Lines: None Urinary Catheter: No (daily urinary cath 3x a day.) Medications and DC Order Prescriptions: Continued (DME) OneTouch Verio test strips Strip See Rx Instructions .Route Qty: 400 3RF Rx Instructions: Test 4 times a day (DME) FreeStyle [place] 3 Sensor Device See Rx Instructions .Route Qty: 6 3RF Rx Instructions: Change sensor every 14 days trazodone 100 mg tablet 100 mg PO HS (DME) blood-glucose meter [OneTouch Verio Flex meter] Misc See Rx Instructions .Route Rx Instructions: As directed nitroglycerin 0.4 mg tablet, sublingual 0.4 mg sublingual Q5M PRN (Reason: Chest Pain) Rx Instructions: do not exceed 3 doses per episode tamsulosin 0.4 mg capsule 0.4 mg PO HS carvedilol 25 mg tablet 25 mg PO BID Rx Instructions: must administer with a meal/food terazosin 10 mg capsule 10 mg PO HS cholecalciferol (vitamin D3) 25 mcg (1,000 unit) capsule 25 mcg PO DAILY MegaRed [place]-3 Krill Oil 294-97-45-50 mg capsule 1 cap PO BID coenzyme Q10 [Q-Sorb Co Q-10] 200 mg capsule 200 mg PO DAILY B Complex Plus Vitamin C 27-95-85-5-300 mg capsule 1 cap PO DAILY Rx Instructions: give with food (meal/snack) ryiksfgu-vjh-jpzhr-vit K-lycop 400-20-300 mcg tablet 1 tab PO DAILY aspirin 81 mg tablet,delayed release (DR/EC) 81 mg PO DAILY leflunomide 20 mg tablet 20 mg PO HS amitriptyline 100 mg tablet 100 mg PO HS finasteride 5 mg tablet 5 mg PO DAILY donepezil [Aricept] 5 mg tablet 5 mg PO HS (DME) pen needle, diabetic 33 gauge x 1/4" needle See Rx Instructions .Route Qty: 100 5RF Rx Instructions: To be used with insulin pen. magnesium 200 mg tablet 400 mg PO DAILY atorvastatin 40 mg tablet 20 mg PO DAILY isosorbide mononitrate 60 mg tablet extended release 24 hr 30 mg PO HS omeprazole 20 mg capsule,delayed release(DR/EC) 60 mg PO HS primidone 50 mg tablet 150 mg PO HS ascorbic acid (vitamin C) 500 mg capsule 500 mg PO DAILY methenamine hippurate 1 gram tablet 1 g PO BID amlodipine 10 mg tablet 10 mg PO BID pramipexole 0.125 mg tablet 0.125 mg PO HS semaglutide 2 mg/dose (8 mg/3 mL) pen injector 0.25 mg subcut .weekly hydralazine 10 mg tablet 10 mg PO TID Qty: 90 5RF Changed valsartan 80 mg tablet 80 mg PO DAILY Qty: 30 0RF gabapentin 300 mg capsule 300 mg PO DAILY Qty: 30 0RF Held fenofibrate 160 mg tablet 160 mg PO DAILY Hold Instructions: Provider's Order discuss with PCP when to reorder. Discharge Orders: Discharge Order (Routine); Ordered 11/14/24 Ordered By: Bill Leo Admission Data Admit Date/Time: 11/06/24 19:19 Attending Provider: Bill Leo Admit Provider: Aldair Chauhan Primary Care Provider: Jhonatan Castillo Other Providers: Aldair Chauhan; Lam Gamble; Zion Colunga; Cesar Garibay Hospital Stay Data Consultations 11/06/24 17:57 ED Decision to Admit Stat 11/07/24 06:34 HIM [Consult Health Information Management] Routine HIM [Consult Health Information Management] Routine HIM [Consult Health Information Management] Routine HIM [Consult Health Information Management] Routine 11/07/24 06:38 HIM [Consult Health Information Management] Routine 11/07/24 06:46 HIM [Consult Health Information Management] Routine 11/07/24 08:17 Consult Hematology Routine 11/07/24 08:18 Consult Nephrology Routine 11/11/24 10:44 Consult Gastroenterology Routine 11/12/24 08:02 Consult Hematology Routine Diagnostic Imagining Performed 11/06/24 16:08 CT head/brain wo con Stat 11/06/24 22:42 CT pelvis wo con Stat 11/07/24 00:18 CT for pulmonary embolism PE [CT angio chest PE protocol] Stat 11/07/24 09:25 US Renal Bladder [US renal/blad retro comp] Routine 11/08/24 08:53 CT head/brain wo con Stat 11/10/24 11:52 MR brain wo con Routine Pending Results Patient Have Any Pending Studies at Discharge: No Discharge Instructions Given to Patient (Per Discharging Provider) Primary order entry representative is Dr. Jeffrey - will need outpatient f/u with Dr. Jeffrey following discharge You will be discharged to rehab and hopefully this will prevent any further episodes. Recommend close followup with PCP to discuss possible medicaton chnages. We cut back on a few of your medications as these could have played a role in your falls. We cut back on your valsartan and gabapentin. We also held your fenofibrate and you appear to be doing well with these changes. Coding Diagnoses Recurrent falls R29.6 Shortness of breath R06.02 Right buttock pain M79.18 Elevated serum creatinine R79.89 Normocytic anemia D64.9 Primary hypertension I10 Hypertension type: primary hypertension Claudication I73.9 Peripheral artery disease I73.9 BPH (benign prostatic hyperplasia) N40.0 Diabetes E11.9 Generalized weakness R53.1
[2024-11-14 13:34] VITALS: PULSE 74
== END 2024-11-14 15:53 | DRG 811 ==
LOC: ED 15:11 → SUATTDRO 19:19 → 3N 19:19 → 4W 11-08 08:50